=== PATIENT | female | born 1960 | race Caucasian/White ===

== ENCOUNTER 2024-04-27 09:34 | Outpatient (AMB) | payer OTHER, MEDICARE, SELFPAY ==
--- NOTE | 2024-04-27 09:35 | A.OFFVIS_ITS ---
Vital Signs 04/27/24 09:46 Height 5 ft Weight 178 lb 8 oz BMI 34.9 BP 148/72 H Blood Pressure Location Lt brachial Position Sitting Respiration 16 Pulse 74 Pulse Source Pulse Oximeter Pulse Oximetry (%) 93 Oxygen Delivery Method Room Air Intake Visit Reasons: RUQ pain/LBP Intake Note: Patient comes in for initial visit was referred by [facility]. She was accompanied by spouse Enrike. 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 Patient is followed by [facility] for liver cirrhosis due to GARCIA and chronic hepatitis C. She also reports history of following GI provider at [facility]. Reports chronic constipation, bloating, and right upper quadrant pains. Patient also has history of kidney stones with intermittent sharp pain in her left back and recurrent UTI. Back pain is axial, non-radiating but also increases with bending forward due to RUQ pain. Reports h/o back injections with partial pain relief. Denies previous spine surgery. Patient reports anxiety, depression and PTSD has been stable on current treatment and has regular follow up with Dr. Scott. She takes clonazepam 1 mg TID, clonidine, Aripiprazole, Lamotrigine, sertraline. No seizure activity in a long time, stable on. Patient is accompanied by her who is her primary it project lead. Patient is disability due to PTSD, back pain, and liver cirrhosis. She lives with her and 2 children. Denies alcohol consumption or smoking. Reports use of marijuana edibles for pain. Oswestry Low Back Disability Score=32 (severe disability) Location: RUQ pain due to Hep C and GARCIA, chronic low back pain Duration: Chronic pain since 2013, worsening for past 2 years Characteristics of symptom or complaint: Throbbing, shooting, stabbing, sharp, crushing, aching, tiring, spreading Aggravating or associated factors: Movements, constant pains unrelated to PO intake or fasting Relieving factors: Marijuana edibles, dicyclomine, Naprosyn Treatment: [facility], h/o following GI provider at [facility] Medical History (Updated 04/29/24 @ 13:50 by YESSI Simmons) Chronic RUQ pain Kidney stones Generalized anxiety disorder AC on CPAP Constipation Hepatitis C Chronic back pain Bipolar disorder Bilateral knee pain Seizures HTN (hypertension) GERD (gastroesophageal reflux disease) PTSD (post-traumatic stress disorder) Liver cirrhosis secondary to GARCIA COPD (chronic obstructive pulmonary disease) Surgical History Hx of cholecystectomy H/O parathyroidectomy History of pancreatectomy S/P partial hysterectomy H/O hernia repair Hx of appendectomy Family History Sister Ovarian cancer Mother Skin cancer Review of Systems Const All systems reviewed & are unremarkable except as noted in HPI and below Physical Exam Vital Signs: Last Vital Signs Pulse 74 04/27/24 09:46 Resp 16 04/27/24 09:46 BP 148/72 H 04/27/24 09:46 Pulse Ox 93 04/27/24 09:46 Oxygen Delivery Method Room Air 04/27/24 09:46 BMI result Body Mass Index 34.9 General: Appears afebrile. Alert and oriented. Mood and affect appropriate. Follows and participates in conversation appropriately. Respiratory effort is unlabored. No cough. Able to transition from sit to stand unassisted. Ambulates with bilaterally normal heel strike and toe off. Eyes General: appearance normal, both eyes and all related structures Conjunctivae: conjunctivae normal Sclerae: sclerae normal Corneas: corneas normal Pupils: Equal, round and reactive pupils present EOM: EOMs intact bilaterally Direct Ophthalmoscopy: normal light reflex GI Inspection: Yes normal to inspection, No abdominal wall ecchymosis, Yes distended, Yes obesity and No scar Palpation (GI): Soft to palpation (and semi-firm right side), Tenderness to palpation present (GI) in the LUQ, in the RUQ and periumbilically; with no rebound tenderness, Guarding due to palpation present (GI) in the RUQ, not rigid, no hepatomegaly and No Carnett's sign positive Percussion: No Fluid wave present and No bilateral flank dullness Auscultation: normal bowel sounds General: Yes no CVA tenderness Back/Spine/Pelvis Back: no CVA tenderness Cervical Spine: loss of normal cervical lordosis, cervical muscular tenderness and No Cervical spine tenderness Thoracic/Lumbar Spine: thoracic and lumbar spine normal to inspection, No Thoracic/lumbar spine scar(s), Lasegue's sign negative, straight leg raise negative bilaterally, pain with thoraco-lumbar ROM, thoraco-lumbar ROM limited, No thoracic spinal tenderness and lumbar spinal tenderness (L3-S1) Pelvis: no buttock tenderness Neuro Cranial nerves: Yes Equal, round and reactive pupils present Results Reviewed Results Reviewed: No imaging results are available for review. Assessment & Plan Assessment & Plan (1) Chronic back pain: Code(s): M54.9 - Dorsalgia, unspecified; G89.29 - Other chronic pain Category: Medical (2) Lumbosacral spondylosis: Code(s): M47.817 - Spondylosis without myelopathy or radiculopathy, lumbosacral region Category: Medical (3) Chronic RUQ pain: Code(s): R10.11 - Right upper quadrant pain; G89.29 - Other chronic pain Category: Medical (4) Liver cirrhosis secondary to GARCIA: Code(s): K75.81 - Nonalcoholic steatohepatitis (GARCIA); K74.60 - Unspecified cirrhosis of liver Category: Medical Plan Obtain full pertinent medical records from PCP and GI offices for abd/pelvis and spine CT scans, US, xrays and MRIs. Discussed interventional treatments for axial low back pain and chronic RUQ pain. I would like to review most recent GI evaluation and imaging/reports prior to offering patient diagnostic or therapeutic injections and potential longer term pain relief treatments such as neuromodulation or RFA procedures. All questions and concerns have been answered and patient agreed with the treatment plan. Follow-up for old records review and sooner as needed. Coding Level of Care Code New Pt Level 4 (67969) Complex EM visit Add On G2211 Diagnoses Chronic back pain M54.9; G89.29 Lumbosacral spondylosis M47.817 Chronic RUQ pain R10.11; G89.29 Liver cirrhosis secondary to GARCIA K75.81; K74.60
[2024-04-27 09:46] VITALS: BP 148/72; PULSE 74; RESP 16; O2SAT 93; BMI 34.9
== END 2024-04-27 10:11 | disposition home or self-care (01) ==
LOC: HO.PMC 09:35
PROVIDERS: PCP Internal Medicine; Visit Provider Nurse Practitioner Family
DX: M54.9 Dorsalgia, unspecified (principal); G89.29 Other chronic pain; M47.817 Spondylosis without myelopathy or radiculopathy, lumbosacral region; R10.11 Right upper quadrant pain; K75.81 Nonalcoholic steatohepatitis (NASH); K74.60 Unspecified cirrhosis of liver
CPT/HCPCS: 99204

== ENCOUNTER → 2024-04-27 09:34 | Outpatient (BNVA) | payer OTHER, MEDICARE, SELFPAY | PROVIDERS: PCP Internal Medicine; Visit Provider Nurse Practitioner Family ==

== ENCOUNTER 2024-06-06 11:12 | Outpatient (AMB) | payer OTHER, MEDICARE, SELFPAY ==
--- NOTE | 2024-06-06 11:32 | A.OFFVIS_ITS ---
Intake Visit Reasons: recurrent UTI Intake Note: New Patient presents for initial visit for recurrent uti Urology Medications: none Blood Thinner: none PVR: 0ml's Supervisor Parachute Manufacturing Required: No Accompanied by: Self / Same As Patient Allergies Penicillins Allergy (Verified 06/06/24 12:30) Hives latex Adverse Reaction (Verified 06/06/24 12:30) Unknown seroquil Allergy (Uncoded 06/06/24 12:30) Seizure Medication List - Last Reconciled 06/06/24 by YESSI Fleming- albuterol sulfate mg inhalation albuterol sulfate 90 mcg/actuation inhalation amlodipine 10 mg PO DAILY aripiprazole 10 mg PO DAILY atenolol 50 mg PO DAILY clonazepam 1 mg PO TID PRN clonidine HCl 0.1 mg PO TID dicyclomine 10 mg PO Q6H PRN estradiol 0.01%(0.1mg/gram) 1 g vaginal 3XW 90 days famotidine 40 mg PO BID hbkojrcvyia-usybaazru-gcrzbnkh 200-62.5-25 mcg (Trelegy Ellipta) 1 ea inhalation DAILY lamotrigine 200 mg PO DAILY losartan 100 mg PO DAILY mirtazapine 15 mg PO BEDTIME omeprazole 40 mg PO DAILY sertraline 100 mg PO BID HPI Comments Details: Latricia is a very pleasant 64-year-old female patient of Dr. Cole who was accompanied by her at today's office visit. 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 She presents to the office today as a new patient for recurrent urinary tract infections. In discussion with the patient today she reports having followed up with her PCP for ongoing urinary tract infections at which time a urology referral was made for further assessment evaluation. She discusses noting over the last year she has had a urinary tract infection almost every month. She currently denies any UTI like symptoms however reports her last urinary tract infection was on 05/04. When asked she does report a history of constipation. She also had a partial hysterectomy in 2000. She reports typically her UTI like symptoms are foul- smelling urine and cloudy urine. She otherwise denies urinary urgency, urinary frequency, incontinence, nocturia, hematuria, dysuria, changes to urinary stream, flank pain, fever, and or chills. We discussed at length potential causes of recurrent urinary tract infections. We discussed obtaining retroperitoneal ultrasound for further assessment evaluation. We also discussed possible near future in office cystoscopy for further assessment evaluation. In office urinalysis results reviewed with the patient today. PVR 0 mL. She otherwise offers no other issues or concerns at this time. Patient brings with her previous urine culture results 03/20 E coli. [facility] Medical History Chronic RUQ pain Kidney stones Generalized anxiety disorder AC on CPAP Constipation Hepatitis C Chronic back pain Bipolar disorder Bilateral knee pain Seizures HTN (hypertension) GERD (gastroesophageal reflux disease) PTSD (post-traumatic stress disorder) Liver cirrhosis secondary to GARCIA COPD (chronic obstructive pulmonary disease) Surgical History Hx of cholecystectomy H/O parathyroidectomy History of pancreatectomy S/P partial hysterectomy H/O hernia repair Hx of appendectomy Family History Sister Ovarian cancer Mother Skin cancer Review of Systems Const All systems reviewed & are unremarkable except as noted in HPI and below Physical Exam Const General: cooperative, healthy appearing, comfortable, no acute distress, well developed, alert and awake Nutritional Appearance: overweight Orientation/consciousness: patient oriented x3 Limitations: no limitations HEENT Head: Yes normal to inspection, Yes normocephalic and Yes atraumatic Ears: hearing grossly normal bilaterally Eyes General: appearance normal, both eyes and all related structures Neck Neck: Yes normal visual inspection and Yes trachea midline Chest Chest palpation & inspection: normal inspection of the chest Resp Effort & Inspection: normal respiratory effort and able to speak in complete sentences Cardio Rate: regular rate GI Inspection: Yes normal to inspection General: Yes no CVA tenderness Back/Spine/Pelvis Back: no CVA tenderness Skin General skin exam: no rashes or lesions noted Neuro General: patient oriented x3 Extrem General: Yes normal to inspection Psych Appearance: grossly normal and well kempt Mental Status: mental status grossly normal Speech and movement: Normal speech and movement present and Clear speech present Affect: normal affect Attitude: cooperative Thought process: Normal thought process present Thought content: Normal thought content present Insight: Fair insight present (Psych) Judgement: Fair judgement present (Psych) Office Procedures Post Void Residual Post Residual Void Post Void Residual (PVR): 0 47585-Pumb Void Residual by ultrasound Results AMB Urinalysis, Automated UA Leukoctes 0 Aniya/uL Last Edit by Second Decimal on 06/06/24 12:01 UA Nitrite Last Edit by Second Decimal on 06/06/24 12:01 UA Urobilinogen 0.2 mg/dL Last Edit by Second Decimal on 06/06/24 12:01 UA Protein 100 mg/dL Last Edit by Second Decimal on 06/06/24 12:01 UA pH 6.0 Last Edit by Second Decimal on 06/06/24 12:01 UA Blood 0 Chong/uL Last Edit by Second Decimal on 06/06/24 12:01 UA Specific Roscoe 1.015 Last Edit by Second Decimal on 06/06/24 12:01 UA Ketone Last Edit by Second Decimal on 06/06/24 12:01 UA Bilirubin 0 mg/dL Last Edit by Second Decimal on 06/06/24 12:01 UA Glucose 0 mg/dL Last Edit by Second Decimal on 06/06/24 12:01 Results Reviewed Results Reviewed: Laboratory Last Values Urine pH (Auto) 6.0 06/06/24 11:36 Specific Roscoe (Auto) 1.015 06/06/24 11:36 Urine Protein (Auto) 100 mg/dL 06/06/24 11:36 Glucose (UA)(Auto) 0 mg/dL 06/06/24 11:36 Urine Blood (Auto) 0 Chong/uL 06/06/24 11:36 Urine Bilirubin (Auto) 0 mg/dL 06/06/24 11:36 Urine Urobilinogen (Auto) 0.2 mg/dL 06/06/24 11:36 Leukocyte Esterase (Auto) 0 Aniya/uL 06/06/24 11:36 Assessment & Plan Assessment & Plan (1) Recurrent urinary tract infection: Code(s): N39.0 - Urinary tract infection, site not specified Category: Medical Plan In office urinalysis results reviewed the patient today; as noted above. PVR 0 mL Patient currently denies any UTI like symptoms. We discussed at length potential causes of recurrent urinary tract infections. Start Estrace cream as discussed and prescribed. Will obtain retroperitoneal ultrasound for further assessment evaluation. We discussed potential near future in office cystoscopy for further assessment evaluation. Discussed UTI prevention with D mannose supplement, vitamin-C, increasing fluid intake, behavioral therapy with timed voiding, perineal hygiene and postcoital voiding, and management of constipation with stool softeners and increased fiber intake. Discussed possible near future microgen Follow-up in 1-3 months with imaging to be completed prior; or sooner with any issues, concerns, and or questions. Orders: Orders AMB Urinalysis Automated Today Z13.9 - Encounter for screening, unspecified US retroperitoneal comp Today N39.0 - Urinary tract infection, site not specified AMB Post Void Residual by ultrasound Today Z13.9 - Encounter for screening, unspecified Medications: New estradiol 0.01%(0.1mg/gram) Pea-sized amount to urethra daily x1 month and then 3 times per week thereafter 1 g vaginal 3XW 42.5 grams 2RF 90 days N36.2 - Urethral caruncle, N39.0 - Urinary tract infection, site not specified, N95.2 - Postmenopausal atrophic vaginitis Patient Instructions: The patient had an opportunity to ask questions regarding the treatment plan. All questions were answered. Physical exam, labs, and imaging were discussed and reviewed in detail. As well as risks, benefits, and discussion of treatment choices. No major barriers to understanding were identified. The patient expressed understanding and agreement with the above treatment plan. The patient was made aware they should contact our office by phone for worsening of their current condition, the appearance of new symptoms, or with any questions or concerns. Compliance is encouraged with any medications and follow up testing that is ordered. It is a privilege to be allowed the opportunity to participate in? your urological care.? Again, if you have any questions or concerns If you have any questions or concerns please do not hesitate to contact me. The office is [phone]. This note is constructed using voice recognition software. While every effort has been made to ensure accuracy punchboard filling machine operator errors may have been included. Yours sincerely, YESSI Fleming- Coding Level of Care Code New Pt Level 4 (75467) Diagnoses Recurrent urinary tract infection N39.0 CPT Codes Post Residual Void - PVR CPT Code: 29273-Jmzj Void Residual by ultrasound ([id number])
== END 2024-06-06 12:30 | disposition home or self-care (01) ==
PROVIDERS: PCP Internal Medicine; Visit Provider Nurse Practitioner Family
DX: Z13.9 Encounter for screening, unspecified (principal); N39.0 Urinary tract infection, site not specified
CPT/HCPCS: 99204

== ENCOUNTER → 2024-06-06 11:12 | Outpatient (BNVA) | payer OTHER, MEDICARE, SELFPAY | PROVIDERS: PCP Internal Medicine; Visit Provider Nurse Practitioner Family | DX: N39.0 Urinary tract infection, site not specified (principal) | CPT/HCPCS: 51798; 81003 ==

== ENCOUNTER 2024-06-14 14:56 | Outpatient (AMB) | payer OTHER, MEDICARE, SELFPAY ==
--- NOTE | 2024-06-14 14:58 | A.OFFVIS_ITS ---
Vital Signs 06/14/24 15:03 Height 5 ft Weight 179 lb BMI 35.0 BP 151/78 H Blood Pressure Location Lt brachial Position Sitting Pulse 77 Pulse Source Pulse Oximeter Pulse Oximetry (%) 94 Oxygen Delivery Method Nasal Cannula Oxygen Flow Rate 3 Intake Visit Reasons: FU increasing pain Intake Note: Pain today 04/05 Stem Threshing Machine Operator Required: No Accompanied by: Family/Other Allergies Penicillins Allergy (Verified 06/14/24 15:02) Hives latex Adverse Reaction (Verified 06/14/24 15:02) Unknown seroquil Allergy (Uncoded 06/06/24 12:30) Seizure HPI Comments Details: Patient presents today for follow up for persistent right upper quadrant pain and low back pain. Unfortunately, we were unable to receive her medical records from her GI provider with most recent imaging studies and GI evaluation to pr oceed with interventional treatments after multiple attempts. Patient and family reports to send medical records release to [facility] and [facility]. Patient also reports bilateral knee pain, left is worse than right. Denies any recent cough, cold, infection, fever or other significant changes in medical history since last office visit. Denies any changes to medications, medical history or recent hospitalizations. 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 Patient is followed by [facility] for liver cirrhosis due to GARCIA and chronic hepatitis C. She also reports history of following GI provider at [facility]. Reports chronic constipation, bloating, and right upper quadrant pains. Patient also has history of kidney stones with intermittent sharp pain in her left back and recurrent UTI. Back pain is axial, non-radiating but also increases with bending forward due to RUQ pain. Reports h/o back injections with partial pain relief. Denies previous spine surgery. Patient reports anxiety, depression and PTSD has been stable on current treatment and has regular follow up with Dr. Scott. She takes clonazepam 1 mg TID, clonidine, Aripiprazole, Lamotrigine, sertraline. No seizure activity in a long time, stable on. Patient is accompanied by her who is her primary tank house operator helper. Patient is disability due to PTSD, back pain, and liver cirrhosis. She lives with her and 2 children. Denies alcohol consumption or smoking. Reports use of marijuana edibles for pain. Oswestry Low Back Disability Score=32 (severe disability) Location: RUQ pain due to Hep C and GARCIA, chronic low back pain Duration: Chronic pain since 2013, worsening for past 2 years Characteristics of symptom or complaint: Throbbing, shooting, stabbing, sharp, crushing, aching, tiring, spreading Aggravating or associated factors: Movements, constant pains unrelated to PO intake or fasting Relieving factors: Marijuana edibles, dicyclomine, Naprosyn Treatment: [facility], h/o following GI provider at [facility] Medical History (Updated 06/14/24 @ 15:08 by YESSI Simmons) Chronic RUQ pain Kidney stones Generalized anxiety disorder AC on CPAP Constipation Hepatitis C Chronic back pain Bipolar disorder Bilateral knee pain Seizures HTN (hypertension) GERD (gastroesophageal reflux disease) PTSD (post-traumatic stress disorder) Liver cirrhosis secondary to GARCIA COPD (chronic obstructive pulmonary disease) Surgical History Hx of cholecystectomy H/O parathyroidectomy History of pancreatectomy S/P partial hysterectomy H/O hernia repair Hx of appendectomy Family History Sister Ovarian cancer Mother Skin cancer Review of Systems Const All systems reviewed & are unremarkable except as noted in HPI and below Physical Exam General: Appears afebrile. No acute distress. Alert and oriented. Mood and affect appropriate. Follows and participates in conversation appropriately. Respiratory effort is unlabored. No cough. Able to transition from sit to stand unassisted. O2 dependant. Ambulates with bilaterally normal heel strike and toe off. GI Inspection: Yes normal to inspection, No abdominal wall ecchymosis, Yes distended, Yes obesity and No scar Palpation (GI): Soft to palpation (and semi-firm right side), Tenderness to palpation present (GI) in the LUQ, in the RUQ and periumbilically; with no rebound tenderness, Guarding due to palpation present (GI) in the RUQ, not rigid, no hepatomegaly and No Carnett's sign positive Back/Spine/Pelvis Cervical Spine: loss of normal cervical lordosis, cervical muscular tenderness and No Cervical spine tenderness Thoracic/Lumbar Spine: thoracic and lumbar spine normal to inspection, No Thoracic/lumbar spine scar(s), Lasegue's sign negative, straight leg raise negative bilaterally, pain with thoraco-lumbar ROM, thoraco-lumbar ROM limited, No thoracic spinal tenderness and lumbar spinal tenderness (L3-S1) Pelvis: no buttock tenderness Extrem Right lower extremity: knee Details: normal to inspection, tenderness Location: of the patella and of the lateral joint line, normal ROM and crepitus; no swelling, no ecchymosis, no deformity and no unusual warmth Left lower extremity: knee (limited ROM due to pain) Details: normal to inspection, tenderness Location: of the patella, of the medial joint line and of the lateral joint line and crepitus; no swelling, no ecchymosis, no deformity and no unusual warmth Results Reviewed Results Reviewed: No imaging results are available for review. Assessment & Plan Assessment & Plan (1) Chronic back pain: Code(s): M54.9 - Dorsalgia, unspecified; G89.29 - Other chronic pain Category: Medical (2) Lumbosacral spondylosis: Code(s): M47.817 - Spondylosis without myelopathy or radiculopathy, lumbosacral region Category: Medical (3) Chronic RUQ pain: Code(s): R10.11 - Right upper quadrant pain; G89.29 - Other chronic pain Category: Medical (4) Liver cirrhosis secondary to GARCIA: Code(s): K75.81 - Nonalcoholic steatohepatitis (GARCIA); K74.60 - Unspecified cirrhosis of liver Category: Medical (5) Bilateral knee pain: Code(s): M25.561 - Pain in right knee; M25.562 - Pain in left knee Category: Medical Plan Obtain full pertinent medical records from PCP and GI offices for abd/pelvis and spine CT scans, US, xrays and MRIs. Will resubmit to [facility] and now to [facility] and [facility] per patient. Lumbar spine and bilateral knee imaging to assess degree of degenerative changes, any subluxation, listhesis, compression fractures or pars defects. Reviewed interventional treatments for axial low back and bilateral knee pain and chronic RUQ pain. Tentatively schedule Bilateral Diagnostic L3-L4-L5 MBB with local and fluoroscopy for potential Sprint PNS, RFA or therapeutic injections. Expectations, risks and benefits were reviewed. All questions and concerns have been answered and patient agreed with the treatment plan. Follow-up for old records/xray review and sooner as needed. Orders: Orders XR knee LT 3V Today M25.561 - Pain in right knee, M25.562 - Pain in left knee XR lumbar spine 6V w bending Today G89.29 - Other chronic pain, M47.817 - Sp ondylosis without myelopathy or radiculopathy, lumbosacral region, M54.9 - Dorsalgia, unspecified XR knee RT 3V Today M25.561 - Pain in right knee, M25.562 - Pain in left knee Coding Level of Care Code Est Pt Level 4 (66048) Complex EM visit Add On G2211 Diagnoses Chronic back pain M54.9; G89.29 Lumbosacral spondylosis M47.817 Chronic RUQ pain R10.11; G89.29 Liver cirrhosis secondary to GARCIA K75.81; K74.60 Bilateral knee pain M25.561; M25.562
[2024-06-14 15:03] VITALS: BP 151/78; PULSE 77; O2SAT 94; BMI 35.0
== END 2024-06-14 15:24 | disposition home or self-care (01) ==
PROVIDERS: PCP Internal Medicine; Visit Provider Nurse Practitioner Family
DX: M54.9 Dorsalgia, unspecified (principal); G89.29 Other chronic pain; M47.817 Spondylosis without myelopathy or radiculopathy, lumbosacral region; R10.11 Right upper quadrant pain; K75.81 Nonalcoholic steatohepatitis (NASH); K74.60 Unspecified cirrhosis of liver; M25.561 Pain in right knee; M25.562 Pain in left knee
CPT/HCPCS: 99214

== ENCOUNTER 2024-06-14 14:56 | Outpatient (REF) | payer OTHER, MEDICARE, SELFPAY ==
--- NOTE | ~2024-06-14 | XR_ITS ---
EXAMINATION: XR LUMBAR SPINE CLINICAL INFORMATION: Dorsalgia, unspecified M54.9. COMPARISON: None available. TECHNIQUE: 7 views of the lumbar spine, inclusive of flexion and extension views, were obtained. FINDINGS: Levoscoliosis of the thoracolumbar spine. Surgical clips in the right upper quadrant. Diffuse demineralization. Degenerative changes in the bilateral sacroiliac joints. Facet arthritis in the lower lumbar spine. Multilevel lumbar spondylosis. Hjbgorov-ml-igytoc loss of disc space height at L2-L3. Marked loss of disc space height at L3-L4. Moderate loss of disc space height at L4-L5. Moderate loss of disc space height at L5-S1. Alignment preserved on flexion and extension views. XR/XR lumbar spine 6V w bending IMPRESSION: Multilevel degenerative disc disease most notable at L3-L4. Electronically signed by: Ekaterina Brennan MD 07/14/2024 02:11 PM DONAVAN
--- NOTE | ~2024-06-14 | XR_ITS ---
EXAMINATION: XR KNEE LEFT; XR KNEE RIGHT CLINICAL INFORMATION: Pain in right knee M25.561. COMPARISON: None TECHNIQUE: Three images of left knee and three images of right knee. FINDINGS: LEFT knee: Diffuse demineralization. Trace joint effusion. Vvfqdzzq-dv-myevfh narrowing of the medial compartment with medial marginal osteophytes. Mild degenerative changes in the lateral and patellofemoral compartments. RIGHT knee: Diffuse demineralization. Trace joint effusion. Mild degenerative changes in the lateral and patellofemoral compartments. XR/XR knee RT 3V IMPRESSION: Moderate to marked degenerative changes in the bilateral medial compartments. Electronically signed by: Ekaterina Brennan MD 07/14/2024 05:28 AM EST
--- NOTE | ~2024-06-14 | XR_ITS ---
EXAMINATION: XR KNEE LEFT; XR KNEE RIGHT CLINICAL INFORMATION: Pain in right knee M25.561. COMPARISON: None TECHNIQUE: Three images of left knee and three images of right knee. FINDINGS: LEFT knee: Diffuse demineralization. Trace joint effusion. Nwyqvyzz-df-gnffsi narrowing of the medial compartment with medial marginal osteophytes. Mild degenerative changes in the lateral and patellofemoral compartments. RIGHT knee: Diffuse demineralization. Trace joint effusion. Mild degenerative changes in the lateral and patellofemoral compartments. XR/XR knee LT 3V IMPRESSION: Moderate to marked degenerative changes in the bilateral medial compartments. Electronically signed by: Ekaterina Brennan MD 07/14/2024 05:28 AM EST
== END 2024-06-14 14:57 | disposition home or self-care (01) ==
LOC: HO.XRAY 14:56
PROVIDERS: PCP Nurse Practitioner Family; Visit Provider Nurse Practitioner Family
DX: M25.561 Pain in right knee (principal); M25.562 Pain in left knee; M54.9 Dorsalgia, unspecified; G89.29 Other chronic pain; M47.817 Spondylosis without myelopathy or radiculopathy, lumbosacral region
CPT/HCPCS: 72114; 73562

== ENCOUNTER 2024-07-19 10:43 | Outpatient (AMB) | payer OTHER, MEDICARE, SELFPAY ==
[2024-07-19 10:43] VITALS: BMI 34.8
--- NOTE | 2024-07-19 10:43 | MHC.OFFVIS ---
Vital Signs 07/19/24 10:43 Height 5 ft Weight 178 lb BMI 34.8 Intake Visit Reasons: xray results Accompanied by: Family/Other Allergies Penicillins Allergy (Verified 07/19/24 10:44) Hives latex Adverse Reaction (Verified 07/19/24 10:44) Unknown seroquil Allergy (Uncoded 06/06/24 12:30) Seizure HPI Comments Details: Patient presents today via telehealth encounter to review recent spine and knee xrays. She continues to endorse axial low back pain with activities and at rest and bilateral knee pain with walking or climbing stairs. Patient also reports increased yellowing of her skin and eyes with persistent right upper quadrant pain. We received her recent liver US and old records from previous GI providers, which were reviewed and scanned into patient's chart. Patient reports she would like to transfer her GI care to [facility] and requests referral to our GI group. Denies any recent cough, cold, infection, fever or other significant changes in medical history since last office visit. Denies any changes to medications, medical history or recent hospitalizations. 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 Patient is followed by [facility] for liver cirrhosis due to GARCIA and chronic hepatitis C. She also reports history of following GI provider at [facility]. Reports chronic constipation, bloating, and right upper quadrant pains. Patient also has history of kidney stones with intermittent sharp pain in her left back and recurrent UTI. Back pain is axial, non-radiating but also increases with bending forward due to RUQ pain. Reports h/o back injections with partial pain relief. Denies previous spine surgery. Patient reports anxiety, depression and PTSD has been stable on current treatment and has regular follow up with Dr. Scott. She takes clonazepam 1 mg TID, clonidine, Aripiprazole, Lamotrigine, sertraline. No seizure activity in a long time, stable on. Patient is accompanied by her who is her primary vegetable grader. Patient is disability due to PTSD, back pain, and liver cirrhosis. She lives with her and 2 children. Denies alcohol consumption or smoking. Reports use of marijuana edibles for pain. Oswestry Low Back Disability Score=32 (severe disability) Location: RUQ pain due to Hep C and GARCIA, chronic low back pain Duration: Chronic pain since 2013, worsening for past 2 years Characteristics of symptom or complaint: Throbbing, shooting, stabbing, sharp, crushing, aching, tiring, spreading Aggravating or associated factors: Movements, constant pains unrelated to PO intake or fasting Relieving factors: Marijuana edibles, dicyclomine, Naprosyn Treatment: [facility], h/o following GI provider at [facility] Medical History Chronic RUQ pain Kidney stones Generalized anxiety disorder AC on CPAP Constipation Hepatitis C Chronic back pain Bipolar disorder Bilateral knee pain Seizures HTN (hypertension) GERD (gastroesophageal reflux disease) PTSD (post-traumatic stress disorder) Liver cirrhosis secondary to GARCIA COPD (chronic obstructive pulmonary disease) Surgical History Hx of cholecystectomy H/O parathyroidectomy History of pancreatectomy S/P partial hysterectomy H/O hernia repair Hx of appendectomy Family History Sister Ovarian cancer Mother Skin cancer Review of Systems Const All systems reviewed & are unremarkable except as noted in HPI and below Reports as per HPI, Denies chills, Reports difficulty sleeping, Reports fatigue, Denies fever(s), Reports malaise and Denies night sweats ENT Reports Normal hearing present GI Reports abdominal pain, Denies melena, Denies fecal incontinence, Denies nausea and Denies vomiting Musc Reports as per HPI, Reports back pain, Reports arthralgias, Denies joint swelling, Reports limited range of motion, Denies numbness, Denies radiating pain into limb, Reports stiffness and Denies tingling Skin/Breast Denies rash and Reports jaundice Neuro Reports Normal hearing present, Denies confusion, Denies numbness and Denies tingling Psych Denies confusion Endo Reports fatigue Physical Exam Vital Signs: BMI result Body Mass Index 34.8 Const General: cooperative, alert and awake; No confusion Orientation/consciousness: patient oriented x3 and No confusion Resp Effort & Inspection: able to speak in complete sentences, no audible wheezes and no cough Neuro General: patient oriented x3 and No confusion Cranial nerves: Yes Normal hearing present Cognition (Neuro): normal cognition Psych Mental Status: mental status grossly normal Speech and movement: Clear speech present Affect: normal affect Attitude: cooperative Thought process: Normal thought process present Thought content: Normal thought content present and No Depressive thoughts present Insight: Good insight present (Psych) Judgement: Good judgement present (Psych) Telehealth Telehealth Telehealth Platform: Telephone Location of provider rendering services: practice address Location of patient: address on file Patient Identification confirmed using: Name, : Yes Telehealth method: voice only Patient verbally consented to treatment: Yes Patient verbally consented to billing insurance company: Yes Patient informed of any privacy concerns related to visit: Yes Minutes spent on Phone/Video with Pt.: 18 Results Reviewed Results Reviewed: XR KNEE LEFT; XR KNEE RIGHT 06/14/24 CLINICAL INFORMATION: Pain in right knee M25.561. COMPARISON: None TECHNIQUE: Three images of left knee and three images of right knee. FINDINGS: LEFT knee: Diffuse demineralization. Trace joint effusion. Moghrgvu-rw-mctaos narrowing of the medial compartment with medial marginal osteophytes. Mild degenerative changes in the lateral and patellofemoral compartments. RIGHT knee: Diffuse demineralization. Trace joint effusion. Mild degenerative changes in the lateral and patellofemoral compartments. IMPRESSION: Moderate to marked degenerative changes in the bilateral medial compartments. XR LUMBAR SPINE 06/14/24 CLINICAL INFORMATION: Dorsalgia, unspecified M54.9. COMPARISON: None available. TECHNIQUE: 7 views of the lumbar spine, inclusive of flexion and extension views, were obtained. FINDINGS: Levoscoliosis of the thoracolumbar spine. Surgical clips in the right upper quadrant. Diffuse demineralization. Degenerative changes in the bilateral sacroiliac joints. Facet arthritis in the lower lumbar spine. Multilevel lumbar spondylosis. Yazcyoto-mg-zjlkkm loss of disc space height at L2-L3. Marked loss of disc space height at L3-L4. Moderate loss of disc space height at L4-L5. Moderate loss of disc space height at L5-S1. Alignment preserved on flexion and extension views. IMPRESSION: Multilevel degenerative disc disease most notable at L3-L4. Assessment & Plan Assessment & Plan (1) Liver cirrhosis secondary to GARCIA: Code(s): K75.81 - Nonalcoholic steatohepatitis (GARCIA); K74.60 - Unspecified cirrhosis of liver Category: Medical (2) Chronic liver disease: Code(s): K76.9 - Liver disease, unspecified Category: Medical (3) Jaundice: Code(s): R17 - Unspecified jaundice Category: Medical (4) Bilateral knee pain: Code(s): M25.561 - Pain in right knee; M25.562 - Pain in left knee Category: Medical (5) Lumbosacral spondylosis: Code(s): M47.817 - Spondylosis without myelopathy or radiculopathy, lumbosacral region Category: Medical (6) Chronic back pain: Code(s): M54.9 - Dorsalgia, unspecified; G89.29 - Other chronic pain Category: Medical (7) Chronic RUQ pain: Code(s): R10.11 - Right upper quadrant pain; G89.29 - Other chronic pain Category: Medical Plan Old records from [facility] providers at [facility] and [facility] were reviewed and scanned into patient's chart. She reports jaundice of her skin and eyes and this is confirmed by her and son who were presents during today's encounter. Patient was advised to seek medical evaluation at ER or call 911 with worsening of jaundice and RUQ pain. She requests referral to our [facility] group. Lumbar spine and bilateral knee xrays results were reviewed with patient today. We reviewed interventional treatments for axial low back and bilateral knee pain due to arthritis and degenerative changes. Patient reports back pain is worse than knee pain. Schedule Bilateral Diagnostic L3-L4-DR L5 MBB with local and fluoroscopy for potential Sprint PNS trial, RFA or therapeutic injections. Expectations, risks and benefits were reviewed. Patient is aware she will be contacted to schedule this procedure. All questions were answered and the patient is in agreement of plan. Follow-up after injections and sooner as needed. I hereby testify that I spent 18 minutes in conversation with this patient as well as with planning and coordinating care for this patient and organizing this note. Orders: Referrals Gastroenterology Referral K74.60 - Unspecified cirrhosis of liver, K75.81 - Nonalcoholic steatohepatitis (GARCIA), K76.9 - Liver disease, unspecified, R17 - Unspecified jaundice Coding Level of Care Code Tele Est Pt Level 4 (64788) Complex EM visit Add On G2211 Diagnoses Liver cirrhosis secondary to GARCIA K75.81; K74.60 Chronic liver disease K76.9 Jaundice R17 Bilateral knee pain M25.561; M25.562 Lumbosacral spondylosis M47.817 Chronic back pain M54.9; G89.29 Chronic RUQ pain R10.11; G89.29
== END 2024-07-19 11:07 | disposition home or self-care (01) ==
LOC: HO.PMC 10:43
PROVIDERS: PCP Nurse Practitioner Family; Visit Provider Nurse Practitioner Family
DX: K74.60 Unspecified cirrhosis of liver (principal); M25.561 Pain in right knee; M25.562 Pain in left knee; M47.817 Spondylosis without myelopathy or radiculopathy, lumbosacral region; M54.9 Dorsalgia, unspecified; G89.29 Other chronic pain; R10.11 Right upper quadrant pain
CPT/HCPCS: 98014

== ENCOUNTER 2024-07-27 09:53 | Outpatient (REF) | payer OTHER, MEDICARE, SELFPAY ==
--- OUTSIDE RECORDS SUMMARY | 2024-07-27 10:32 | XMS_ITS | Encounter Summary ---
Author Organization [facility] Address [address] [place] [address] Phone Care Team Providers Care Dinner Cook Name Role Phone Katarina Nails YESSI Primary Care Provider [phone] Encounter Details Date Type Department Care Team (Late st Contact Info) Description 02/29/2024 Documentation Only [facility] [address] [place] [address] Gilma Jones [address] [place] [phone] Social History Tobacco Use Types Packs/Day Years Used Date Smoking Tobacco: Never Alcohol Use Standard Drinks/Week Comments Not Currently 1 (1 standard drink = 0.6 oz pur e alcohol) No Longer drink Comments Unknown Sex and Gender Information Value Date Recorded Sex Assigned at Not on file Legal Sex Female 3:13 PM EDT Gender Identity Not on file Sexual Orientation Not on file documented as of this encounter Plan of Treatment Upcoming Encounters Date Type Department Care Team (Late st Contact Info) Description 11/21/2024 2:45 PM EDT Office Visit [facility] [address] [place] [phone] Gnosalo Antony MD [address] [place] [phone] documented as of this encounter Visit Diagnoses Not on filedocumented in this encounter Care Teams Dinner Cook Relationship Specialty Start Date End Date Katarina Nails FNP [address], [address] [place] [address] PCP - General 05/07/24 documented as of this encounter
--- OUTSIDE RECORDS SUMMARY | 2024-07-27 10:32 | XMS_ITS | Encounter Summary ---
Author Organization [facility] Address [address] [place] [address] Phone Care Team Providers Care Mold Puller Name Role Phone Katarina Nails YESSI Primary Care Provider [phone] Encounter Details Date Type Department Care Team (Late st Contact Info) Description 03/03/2022 Documentation Only [facility] [address] [place] [phone] Rubens Palafox PA [address] [phone] Social History Tobacco Use Types Packs/Day Years [...] Visit [facility] [address] [place] [phone] Gonsalo Antony MD [address] [place] [place] [phone] documented as of this encounter Visit Diagnoses Not on filedocumented in this encounter Care Teams Mold Puller Relationship Specialty Start Date End Date Katarina Nails FNP [address], [address] [place] [address] PCP - General 05/07/24 documented as of this encounter
--- OUTSIDE RECORDS SUMMARY | 2024-07-27 10:32 | XMS_ITS | Encounter Summary ---
Author Organization [facility] [place], Address [address] [place] [address] Phone Care Team Providers Care Surgical Assist Name Role Phone Katarina Nails YESSI Primary Care Provider [phone] Encounter Details Date Type Department Care Team (Late st Contact Info) Description 03/30/2022 Documentation Only [facility], [address] [place] [phone] Rubens Palafox PA [address] [place] [phone] Social History Tobacco Use Types Packs/Day Years Used Date Smoking Tobacco: Never Alcohol Use Standard Drinks/Week Comments Not Currently 1 (1 standard drink = 0.6 oz pur e alcohol) No Longer drink Comments Unknown Sex and Gender Information Value Date Recorded Sex Assigned at Not on file Legal Sex Female 3:13 PM EDT Gender Identity Not on file Sexual Orientation Not on file COVID-19 Exposure Response Date Recorded In the last 10 days, have yo u been in contact with someone who was confirmed or suspected to have Coronavirus/COVID-19? No / Unsure 03/08/2022 9:52 AM EDT documented as of this encounter Plan of Treatment Upcoming Encounters Date Type Department Care Team (Late st Contact Info) Description 11/21/2024 2:45 PM EDT Office Visit [facility], [address] [place] [address] Gonsalo Antony MD [address] [place] [place] [address] documented as of this encounter Visit Diagnoses Not on filedocumented in this encounter Care Teams Surgical Assist Relationship Specialty Start Date End Date Katarina Nails FNP [address] [facility] [address] [place] [address] PCP - General 05/07/24 documented as of this encounter
--- OUTSIDE RECORDS SUMMARY | 2024-07-27 10:32 | XMS_ITS | Encounter Summary ---
Author Organization [facility] Address [address] [place] [address] Phone Care Team Providers Care Cold Type Composing Machine Operator Name Role Phone Katarina Nails YESSI Primary Care Provider [phone] Encounter Details Date Type Department Care Team (Late st Contact Info) Description 06/07/2023 Documentation Only [facility] [address] [place] [phone] Rubens Palafox PA [address] [place] [phone] Social History Tobacco Use Types Packs/Day Years [...] Visit [facility] [address] [place] [phone] Gonsalo Antony MD [address] [place] [phone] documented as of this encounter Visit Diagnoses Not on filedocumented in this encounter Care Teams Cold Type Composing Machine Operator Relationship Specialty Start Date End Date Katarina Nails FNP [address], [address] [place] [address] PCP - General 05/07/24 documented as of this encounter
--- OUTSIDE RECORDS SUMMARY | 2024-07-27 10:32 | XMS_ITS | Clinical Summary ---
Author Organization [facility], Address [address] [place] [place] [address] Phone Care Team Providers Care Leasing Assistant Name Role Phone Katarina Nails Primary Care Provider [phone] Allergies Active Allergy Reactions Criticality Noted Date Comments Latex Hives Low 10/11/2018 Penicillins Rash Medium 10/11/2018 Quetiapine Rash,Other (see comments) Low 10/24/2018 Medications ARIPiprazole (ABILIFY) 10 MG tablet Take 10 mg by mouth in the morning. Active atenolol (TENORMIN) 50 MG tablet Take 50 mg by mouth in the morning. Active clonazePAM (KlonoPIN) 1 MG tablet Take 1 mg by mouth 2 (two) times a day if needed Active cloNIDine (CATAPRES) 0.1 MG tablet Take 0.1 mg by mouth in the morning and 0.1 mg in the evening. Active lamoTRIgine (LaMICtal) 150 MG tablet Take 150 mg by mouth in the morning. Active sertraline (ZOLOFT) 100 MG tablet Take 100 mg by mouth in the morning. Active polyethylene glycol (GLYCOLAX) 17 GM/SCOOP powder See Instructions, # 14 pack/packet, MIX 17 GM BY MOUTH DAILY DISSOLVE IN WATER BEFORE TAKING, [facility]/pharmacy #[id number] 01/24/2019 Active dicyclomine (BENTYL) 10 MG capsule Take 1 capsule by mouth 01/28/2022 Active Cholecalciferol (Vitamin D3) 1.25 MG (27325 UT) capsule Take by mouth 06/09/2018 Act herman docusate sodium (COLACE) 100 MG capsule Take 100 mg by mouth in the morning and 100 mg in the evening. Active mirtazapine (REMERON) 15 MG tablet Take 15 mg by mouth every night Active famotidine (PEPCID) 40 MG tablet 05/20/2023 Active Linzess 145 MCG capsule 06/02/2023 Active losartan (COZAAR) 100 MG tablet 04/08/2023 Active sulfamethoxazol e-trimethoprim 800-160 MG per tablet TAKE 1 TABLET BY MOUTH EVERY 12 HOURS FOR 5 DAYS 05/19/2023 Active amLODIPine (NORVASC) 10 MG tablet Take 1 tablet (10 mg total) by mouth 1 (one) time each day 90 tablet 3 08/04/2023 08/03/19 25 Active Active Problems Problem Noted Date Diagnosed Date Chronic kidney disease, stage 2 (mild) 4 Recurrent urinary tract infection 06/09/2023 Proteinuria 10/06/2022 Parathyroid adenoma 04/06/2022 Depressive disorder 03/08/2022 Hypercalcemia 01/28/2022 Hypertensive disorder 01/28/2022 Calculus of kidney Resolved Problems Problem Noted Date Diagnosed Date Resolved Date Bipolar disorder 03/08/2022 04/05/2022 Gastroesophageal reflux disease 03/08/2022 04/05/2022 Internal hemorrhoids 03/08/2022 022 Lymphadenopathy 03/08/2022 04/05/2022 Obese class I 03/08/2022 04/05/2022 Obstructive sleep apnea syndrome 03/08/2022 04/05/2022 Steatosis of liver 03/08/2022 Atrial fibrillation 03/08/2022 04/05/20 22 Hypercholesterolemia 03/08/2022 022 Chronic obstructive pulmonary disease 03/08/2022 04/05/2022 Anxiety 03/08/2022 04/05/2022 Hepatitis 03/08/2022 04/05/2022 Hyperparathyroidism 03/08/2022 04/05/20 22 Encounters Date Type Department Care Team Description 05/07/2024 Refill [facility], - [address] [place] [address] Gilma Jones 05/07/2024 Office Communication [facility] [address] [place] [phone] Rubens Palafox PA 05/02/2024 3:15 PM EST Office Visit [facility] [address] [place] [phone] Rubens Palafox PA Chronic kidney disease, stage 2 (mild) (Primary Dx); Hypertensive disorder; Parathyroid adenoma; Recurrent urinary tract infection from Last 3 Months Immunizations Name Administration Dates Next Due Influenza Whole 06/22/2017 Influenza, Unspecified 04/14/2022,06/11/2021,,04/04/2019 Pfizer SARS-COV-2 10/18/2020,09/26/2020 Shingrix 04/10/2020 Td, Unspecified 03/24/2016 Tdap 06/09/2018 Family History Medical History Relation Comments Cancer Father Dementia Father Hypertension Father Dementia Mother Hypertension Mother Cancer Sister Relation Status Comments Father Mother Sister Social History Tobacco Use Types Packs/Day Years Used Date Smoking Tobacco: Never Alcohol Use Standard Drinks/Week Comments Not Currently 1 (1 standard drink = 0.6 oz pur e alcohol) No Longer drink Comments Unknown Sex and Gender Information Value Date Recorded Sex Assigned at Not on file Legal Sex Female 3:13 PM EDT Gender Identity Not on file Sexual Orientation Not on file Last Filed Vital Signs Vital Sign Reading Time Taken Comments Blood Pressure 130/82 05/02/2024 3:15 PM EST Pulse 77 08/27/2022 10:53 AM EST Temperature 36.2 ??C (97.2 ??F) 08/27/2022 1 0:53 AM EST Respiratory Rate 16 08/27/2022 10:5 3 AM EST Oxygen Saturation 99% 08/27/2022 10: 53 AM EST Inhaled Oxygen Concentration - - Weight 81.6 kg (179 lb 12.8 oz) 05/02/2024 3:15 PM EST Height 152.4 cm (5') 05/02/2024 3:15 PM EST Body Mass Index 35.11 05/02/2024 3:15 PM EST Plan of Treatment Upcoming Encounters Date Type Department Care Team (Late st Contact Info) Description 11/21/2024 2:45 PM EDT Office Visit [facility], [address] [place] [phone] Gonsalo Antony MD [address] [place] [phone] Health Maintenance Due Date Last Done Comments Breast Cancer Screening 1962 Pneumococcal Vaccine: Pediat rics (0 to 5 Years) and At-Risk Patients (6 to 64 Years) (1 of 2 - PCV) 02/09/1968 Colorectal Cancer Screening: Annual FOBT 2011 Colorectal Cancer Screening: Colonoscopy 2011 Colorectal Cancer Screening: Sigmoidoscopy 2011 Hepatitis B Vaccine (1 of 3 - Risk 3-dose series) 2022 Influenza Vaccine Completed 05/03/2024, , 06/11/2021, Additional history exists Procedures Procedure Name Priority Date/Time Associated Diagnosis Comments VITAMIN D 25 HYDROXY Routine 05/04/2024 10:26 AM EST Chronic kidney disease, stage 2 (mild) PROTEIN / CREATININE RATIO, URINE Routine 05/04/2024 10:26 AM EST Chronic kidney disease, stage 2 (mild) URIC ACID Routine 05/04/2024 10:26 AM EST Chronic kidney disease, stage 2 (mild) URINALYSIS WITH MICROSCOPIC Routine 05/04/2024 10:26 AM EST Chronic kidney disease, stage 2 (mild) RENAL FUNCTION PANEL Routine 05/04/2024 10:26 AM EST Chronic kidney disease, stage 2 (mild) PTH, INTACT Routine 05/04/2024 10:26 AM EST Chronic kidney disease, stage 2 (mild) IRON PANEL (FE, TIBC, TSAT) Routine 05/04/2024 10:26 AM EST Chronic kidney disease, stage 2 (mild) CBC AND DIFFERENTIAL Routine 05/04/2024 10:26 AM EST Chronic kidney disease, stage 2 (mild) MICROSCOPIC EXAMINATION - DO NOT USE Routine 05/04/2024 10:26 AM EST from Last 3 Months Results * (ABNORMAL) Microscopic Examination (05/04/2024 10:26 AM EST) WBC, Urine >30(A) 0 - 5 /hpf [facility] RBC, Urine 0-2 0 - 2 /hpf [facility] Squamous Epithelial, Urine 0-10 0 - 10 /hpf [facility] Casts None seen None seen /lpf [facility] Bacteria, Urine Moderate(A ) None seen/Few [facility] 05/04/2024 10:2 6 AM EST 05/04/2024 [facility] MICROBIOLOGY - GENERAL OR DERABLES Final Result [facility] [address] [place] [address] * Iron Panel (Fe, TIBC, TSAT) (05/04/2024 10:26 AM EST) Iron 128 27 - 139 ug/dL [facility] TIBC 384 250 - 450 ug/dL [facility] UIBC 256 118 - 369 ug/dL [facility] Iron Saturation (TSat) 33 15 - 55 % [facility] Blood (Blood, Venous) 05/04/2024 10:26 AM EST 05/04/2024 [facility] BLOOD ORDERABLES Final Re sult Performing Organization Address City/[facility]/ZIP Co de Phone Number [facility] [address] [place] [address] * (ABNORMAL) Urine Protein / creatinine ratio (05/04/2024 10:26 AM EST) Creatinine, Ur 155.5 Not Estab. mg/dL [facility] Protein, Ur 77.3 Not Estab. mg/dL [facility] Urine Protein/Creati nine Ratio 497(H) 0 - 200 mg/g creat [facility] Urine (Urine, Clean Catch) 05/04/2024 10:26 AM EST 05/04/2024 [facility] URINE ORDERABLES Final Re sult Performing Organization Address City/[facility] Co de Phone Number [facility] [address] [place] [address] * (ABNORMAL) Vitamin D 25 hydroxy (05/04/2024 10:26 AM EST) Vitamin D, 25-OH, Total 22.4(L) 30.0 - 100.0 ng/mL [facility] Comment: Vitamin D deficiency has been defined by the [place] of Medicine and an Endocrine Society practice guideline as a level of serum 25-OH vitamin D less than 20 ng/mL (1,2). The Endocrine Society went on to further define vitamin D insufficiency as a level between 21 and 29 ng/mL (2). 1. IOM ([place] of Medicine). 2010. Dietary reference ?? intakes for calcium and D. [place]: The ?? National Academyoucalc Press. 2. Venu MF, Priyanka NC, Tana PLEITEZ, et al. ?? Evaluation, treatment, and prevention of vitamin D ?? deficiency: an Endocrine Society clinical practice ?? guideline. JCEM. 2010; 96(4):1911-30. Blood (Blood, Venous) 05/04/2024 10:26 AM EST 05/04/2024 [facility] BLOOD ORDERABLES Final Re sult [facility] [address] [place] [address] * (ABNORMAL) Urinalysis with microscopic (05/04/2024 10:26 AM EST) Specific Weed, Urine 1.020 1.005 - 1.030 [facility] pH Urine 6.0 5.0 - 7.5 [facility] [phone] Color, Urine Yellow Yellow [facility] [phone] Appearance Urine Turbid(A) Clear [facility] [phone] WBC Esterase Urine 3+(A) Negative [facility] Protein, Ur 1+(A) Negative/Tra ce [facility] Glucose, Ur Negative Negative [facility] Ketones, Urine Negative Negative [facility] Blood Urine 1+(A) Negative [facility] [phone] Bilirubin Urine Negative Negative [facility] Urobilinogen Urine 1.0 0.2 - 1.0 mg/dL [facility] Nitrite, Urine Negative Negative [facility] Microscopic Examination See below: [facility] Comment:Microscopic was julio cated and was performed. Urine (Urine, Clean Catch) 05/04/2024 10:26 AM EST 05/04/2024 us [facility] URINE ORDERABLES Final Re sult [facility] [address] [place] [address] * (ABNORMAL) CBC and differential (05/04/2024 10:26 AM EST) WBC 7.4 3.4 - 10.8 x10E3/uL [facility] RBC 3.88 3.77 - 5.28 x10E6/uL [facility] Hemoglobin 12.8 11.1 - 15.9 g/dL [facility] Hematocrit 37.9 34.0 - 46.6 % [facility] MCV 98(H) 79 - 97 fL [facility] MCH 33.0 26.6 - 33.0 pg [facility] MCHC 33.8 31.5 - 35.7 g/dL [facility] RDW 13.1 11.7 - 15.4 % [facility] Platelets 197 150 - 450 x10E3/uL [facility] Neutrophils Relative 66 Not Estab. % [facility] Lymphocytes Relative 24 Not Estab. % [facility] Monocytes 6 Not Estab. % [facility] Eosinophils Relative 4 Not Estab. % [facility] Basophils Relative 0 Not Estab. % [facility] Neutrophils Absolute 4.8 1.4 - 7.0 x10E3/uL [facility] Lymphocytes Absolute 1.8 0.7 - 3.1 x10E3/uL [facility] Monocytes Absolute 0.4 0.1 - 0.9 x10E3/uL [facility] Eosinophils Absolute 0.3 0.0 - 0.4 x10E3/uL [facility] Basophils Absolute 0.0 0.0 - 0.2 x10E3/uL [facility] Immature Granulocytes 0 Not Estab. % [facility] Immature Grans (Absolute) 0.0 0.0 - 0.1 x10E3/uL [facility] Blood (Blood, Venous) 05/04/2024 10:26 AM EST 05/04/2024 [facility] BLOOD ORDERABLES Final Re sult Performing Organization Address City/[facility]/ZIP Co de Phone Number [facility] [address] [place] [address] * Uric acid (05/04/2024 10:26 AM EST) Uric Acid 6.2 3.0 - 7.2 mg/dL [facility] Comment:Therapeutic target f or gout patients: <6.0 Blood (Blood, Venous) 05/04/2024 10:26 AM EST 05/04/2024 [facility] BLOOD ORDERABLES Final Re sult [facility] [address] [place] [address] * PTH, intact (05/04/2024 10:26 AM EST) PTH 41 15 - 65 pg/mL [facility] Blood (Blood, Venous) 05/04/2024 10:26 AM EST 05/04/2024 [facility] BLOOD ORDERABLES Final Re sult [facility] [address] [place] [address] * (ABNORMAL) Renal function panel (05/04/2024 10:26 AM EST) Glucose 91 70 - 99 mg/dL [facility] BUN 15 8 - 27 mg/dL [facility] Creatinine 0.94 0.57 - 1.00 mg/dL [facility] eGFR CKD-EPI CR 2020 69 >59 mL/min/1.7 3 [facility] BUN/Creatinine Ratio 16 12 - 28 [facility] Sodium 142 134 - 144 mmol/L [facility] Potassium 4.2 3.5 - 5.2 mmol/L [facility] Chloride 105 96 - 106 mmol/L [facility] Bicarbonate (CO2) 18(L) 20 - 29 mmol/L [facility] Calcium 10.1 8.7 - 10.3 mg/dL [facility] Albumin 5.1(H) 3.9 - 4.9 g/dL [facility] Phosphorus 3.3 3.0 - 4.3 mg/dL [facility] Blood (Blood, Venous) 05/04/2024 10:26 AM EST 05/04/2024 [facility] BLOOD ORDERABLES Final Re [facility] [address] [place] [address] from Last 3 Months Insurance [facility] Care Teams Leasing Assistant Relationship Specialty Start Date End Date Katarina Nails FNP [address], [address] [place] [address] PCP - General 05/07/24
--- OUTSIDE RECORDS SUMMARY | 2024-07-27 10:32 | XMS_ITS | Encounter Summary ---
Author Organization [facility] Address [address] [place] [address] Phone Care Team Providers Care Medical Records Assistant Name Role Phone Katarina Nails YESSI Primary Care Provider [phone] Reason for Visit * Reason Comments Med Change Request Encounter Details Date Type Department Care Team (Late st Contact Info) Description 06/08/2023 Refill [facility] [address] [place] [phone] Rubens Palafox PA [address] [place] [phone] Social History Tobacco Use Types Packs/Day Years [...] Visit [facility] [address] [place] [phone] Gonsalo Antony MD [address] [place] [address] documented as of this encounter Visit Diagnoses Not on filedocumented in this encounter Care Teams Medical Records Assistant Relationship Specialty Start Date End Date Katarina Nails FNP [address], [facility] [address] [place] [address] PCP - General 05/07/24 documented as of this encounter
== END 2024-07-27 09:54 | disposition home or self-care (01) ==
LOC: HO.US 09:53
PROVIDERS: PCP Nurse Practitioner Family; Visit Provider Nurse Practitioner Family
DX: N39.0 Urinary tract infection, site not specified (principal)
CPT/HCPCS: 76770

== ENCOUNTER 2024-08-06 12:34 | Outpatient (AMB) | payer OTHER, MEDICARE, SELFPAY ==
--- NOTE | 2024-08-06 13:05 | MHC.OFFVIS ---
Intake Visit Reasons: 2m/US(set) Intake Note: Patient presents today for follow up on : recurrent uti and ultrasound results imaging completed: 07/27/24 Urology Medications: estrace cream Blood Thinner: none PVR: 140ml's Roto Gravure Press Operator Required: No Accompanied by: Self / Same As Patient Allergies Penicillins Allergy (Verified 08/06/24 13:37) Hives latex Adverse Reaction (Verified 08/06/24 13:37) Unknown seroquil Allergy (Uncoded 08/06/24 13:37) Seizure Medication List - Last Reconciled 08/06/24 by YESSI Fleming- albuterol sulfate mg inhalation albuterol sulfate 90 mcg/actuation inhalation amlodipine 10 mg PO DAILY aripiprazole 10 mg PO DAILY atenolol 50 mg PO DAILY clonazepam 1 mg PO TID PRN clonidine HCl 0.1 mg PO TID dicyclomine 10 mg PO Q6H PRN estradiol 0.01%(0.1mg/gram) 1 g vaginal 3XW 90 days ezetimibe 10 mg PO DAILY famotidine 40 mg PO BID glbaphpunfa-pmeegmfhi-cqdjkjja 200-62.5-25 mcg (Trelegy Ellipta) 1 ea inhalation DAILY lamotrigine 200 mg PO DAILY lamotrigine mg PO DAILY linaclotide (Linzess) 145 mcg PO DAILY losartan 100 mg PO DAILY mirtazapine 15 mg PO BEDTIME omeprazole 40 mg PO DAILY sertraline 100 mg PO BID HPI Comments Details: Latricia is a very pleasant 64-year-old female patient of Dr. Nails who was accompanied by her and son at today's office visit. 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 She presents to the office today for follow-up. Of note, patient was seen approximately 2 months ago as a new patient for recurrent urinary tract infections at which time she was started on Estrace cream and a retroperitoneal ultrasound was ordered for further assessment evaluation. These results were reviewed with the patient and her family today. 08/21 bilateral kidneys are normal in size and echotexture. No collecting system dilatation of either kidney. There is a possible focal prominence normal parenchyma in the mid left kidney. Normal color Doppler. The urinary bladder is unremarkable. Pre void bladder volume is approximately 310 mL. Postvoid bladder volume is approximately 75 mL. Patient with previous MRI imaging 09/15 that notes multifocal left renal cortical thinning/scarring. No hydronephrosis. Kidneys enhance symmetrically. No suspicious masses noted. She denies having had any urinary tract infections and or UTI like symptoms since her last office visit here. She reports compliance with Estrace cream as prescribed and is requesting a refill. She reports typical UTI like symptoms are foul-smelling urine and cloudy urine. Patient and family discuss her longstanding history of surgical interventions to include appendectomy, bladder surgery with Dr. Villa over 20 years ago, C-sections, cholecystectomy, hernia repairs, hysterectomy partial, pancreatic surgery with pancreas removed and parathyroidectomy. She discusses following up at [facility] as well as [facility] for a 2nd opinion of question of hepatitis-C. She otherwise denies urinary urgency, urinary frequency, incontinence, nocturia, hematuria, dysuria, changes to urinary stream, flank pain, fever, and or chills. We discussed at length potential causes of recurrent urinary tract infections. In office urinalysis results reviewed with the patient today. PVR 140mL. She otherwise offers no other issues or concerns at this time. [facility] Medical History Chronic RUQ pain Kidney stones Generalized anxiety disorder AC on CPAP Constipation Hepatitis C Chronic back pain Bipolar disorder Bilateral knee pain Seizures HTN (hypertension) GERD (gastroesophageal reflux disease) PTSD (post-traumatic stress disorder) Liver cirrhosis secondary to GARCIA COPD (chronic obstructive pulmonary disease) Surgical History Hx of cholecystectomy H/O parathyroidectomy History of pancreatectomy S/P partial hysterectomy H/O hernia repair Hx of appendectomy Family History Sister Ovarian cancer Mother Skin cancer Review of Systems Const All systems reviewed & are unremarkable except as noted in HPI and below Physical Exam Const General: cooperative, healthy appearing, comfortable, no acute distress, well developed, alert and awake Nutritional Appearance: overweight Orientation/consciousness: patient oriented x3 Limitations: no limitations HEENT Head: Yes normal to inspection, Yes normocephalic and Yes atraumatic Ears: hearing grossly normal bilaterally Eyes General: appearance normal, both eyes and all related structures Neck Neck: Yes normal visual inspection and Yes trachea midline Chest Chest palpation & inspection: normal inspection of the chest Resp Effort & Inspection: normal respiratory effort and able to speak in complete sentences Cardio Rate: regular rate GI Inspection: Yes normal to inspection General: Yes no CVA tenderness Back/Spine/Pelvis Back: no CVA tenderness Skin General skin exam: no rashes or lesions noted Neuro General: patient oriented x3 Extrem General: Yes normal to inspection Psych Appearance: grossly normal and well kempt Mental Status: mental status grossly normal Speech and movement: Normal speech and movement present and Clear speech present Affect: normal affect Attitude: cooperative Thought process: Normal thought process present Thought content: Normal thought content present Insight: Fair insight present (Psych) Judgement: Fair judgement present (Psych) Office Procedures Post Void Residual Post Residual Void Post Void Residual (PVR): 140 14911-Oqnx Void Residual by ultrasound Results AMB Urinalysis, Automated UA Leukoctes 0 Aniya/uL Last Edit by Salma Izquierdo on 08/06/24 13:30 UA Nitrite Last Edit by Salma Izquierdo on 08/06/24 13:30 UA Urobilinogen 0.2 mg/dL Last Edit by JakeBueda Timbo on 08/06/24 13:30 UA Protein 30 mg/dL Last Edit by Salma Izquierdo on 08/06/24 13:30 UA pH 6.0 Last Edit by Salma Izquierdo on 08/06/24 13:30 UA Blood 0 Chong/uL Last Edit by Salma Izqueirdo on 08/06/24 13:30 UA Specific Neopit 1.015 Last Edit by Salma Izquierdo on 08/06/24 13:30 UA Ketone Last Edit by JakeTapatalkjerry FordKedzoh on 08/06/24 13:30 UA Bilirubin 0 mg/dL Last Edit by sickweather Timbo on 08/06/24 13:30 UA Glucose 0 mg/dL Last Edit by Business Combinedjerry Izquierdo on 08/06/24 13:30 Results Reviewed Results Reviewed: Laboratory Last Values Urine pH (Auto) 6.0 08/06/24 13:29 Specific [place] (Auto) 1.015 08/06/24 13:29 Urine Protein (Auto) 30 mg/dL 08/06/24 13:29 Glucose (UA)(Auto) 0 mg/dL 08/06/24 13:29 Urine Blood (Auto) 0 Chong/uL 08/06/24 13:29 Urine Bilirubin (Auto) 0 mg/dL 08/06/24 13:29 Urine Urobilinogen (Auto) 0.2 mg/dL 08/06/24 13:29 Leukocyte Esterase (Auto) 0 Aniya/uL 08/06/24 13:29 Date of Service: 07/27/24 US Renal Comparison: None Findings: Right kidney normal size and echotexture, 12.0 cm length. Left kidney normal size and echotexture, 13.7 cm length. No collecting system dilatation of either kidney. There is possible focal prominence normal parenchyma in the mid left kidney. Normal color Doppler. Urinary bladder is unremarkable. Prevoid volume 310 mL. Postvoid volume 74 mL. Bilateral ureteral jets are visualized. IMPRESSION: 1. Possible left renal parenchymal anatomic variant. Consider confirmation with CT to exclude renal mass. Assessment & Plan Assessment & Plan (1) Recurrent urinary tract infection: Code(s): N39.0 - Urinary tract infection, site not specified Category: Medical Plan In office urinalysis results reviewed with the patient today; as noted above. Recent retroperitoneal ultrasound results reviewed with the patient today; as noted above. Continue Estrace cream. Patient currently denies any bothersome urinary issues. She reports be happy with current voiding parameters. We discussed at length potential causes of recurrent urinary tract infections as well as further treatment options and risks and benefits of these treatment options. Discussed attempting to double void to assist with incomplete bladder emptying. Discussed UTI prevention with D mannose supplement, vitamin-C, increasing fluid intake, behavioral therapy with timed voiding, perineal hygiene and postcoital voiding, and management of constipation with stool softeners and increased fiber intake. Follow-up in 3 months with PVR; or sooner with any issues, concerns, and or questions. Orders: Orders AMB Urinalysis Automated Today Z13.9 - Encounter for screening, unspecified AMB Post Void Residual by ultrasound Today N39.0 - Urinary tract infection, site not specified Medications: Refilled estradiol 0.01%(0.1mg/gram) Pea-sized amount to urethra daily x1 month and then 3 times per week thereafter 1 g vaginal 3XW 42.5 grams 2RF 90 days N36.2 - Urethral caruncle, N39.0 - Urinary tract infection, site not specified, N95.2 - Postmenopausal atrophic vaginitis Patient Instructions: The patient had an opportunity to ask questions regarding the treatment plan. All questions were answered. Physical exam, labs, and imaging were discussed and reviewed in detail. As well as risks, benefits, and discussion of treatment choices. No major barriers to understanding were identified. The patient expressed understanding and agreement with the above treatment plan. The patient was made aware they should contact our office by phone for worsening of their current condition, the appearance of new symptoms, or with any questions or concerns. Compliance is encouraged with any medications and follow up testing that is ordered. It is a privilege to be allowed the opportunity to participate in? your urological care.? Again, if you have any questions or concerns If you have any questions or concerns please do not hesitate to contact me. The office is [phone]. This note is constructed using voice recognition software. While every effort has been made to ensure accuracy account manager relief errors may have been included. Yours sincerely, AMI Fleming Coding Level of Care Code Est Pt Level 3 (70537) Complex EM visit Add On G2211 Diagnoses Recurrent urinary tract infection N39.0 CPT Codes Post Residual Void - PVR CPT Code: 07865-Eglr Void Residual by ultrasound ([id number])
== END 2024-08-06 13:40 | disposition home or self-care (01) ==
PROVIDERS: PCP Internal Medicine; Visit Provider Nurse Practitioner Family
DX: Z13.9 Encounter for screening, unspecified (principal); N39.0 Urinary tract infection, site not specified
CPT/HCPCS: 99213

== ENCOUNTER → 2024-08-06 12:34 | Outpatient (BNVA) | payer OTHER, MEDICARE, SELFPAY | PROVIDERS: PCP Internal Medicine; Visit Provider Nurse Practitioner Family | DX: N39.0 Urinary tract infection, site not specified (principal); N36.2 Urethral caruncle; N95.2 Postmenopausal atrophic vaginitis | CPT/HCPCS: 51798; 81003 ==

== ENCOUNTER 2024-08-23 16:17 | Outpatient (REF) | payer OTHER, MEDICARE, SELFPAY ==
--- OUTSIDE RECORDS SUMMARY | 2024-08-23 19:21 | XMS_ITS | Encounter Summary ---
Author Organization [facility], Address [address] [place] [address] Phone Care Team Providers Care Vp Product Name Role Phone Katarina Nails YESSI Primary Care Provider [phone] Encounter Details Date Type Department Care Team (Late st Contact Info) Description 03/30/2022 Documentation Only [facility] [address] [place] [address] Rubens Palafox PA Social History Tobacco Use Types Packs/Day Years [...] Visit [facility], [address] [place] [address] Gonsalo Antony MD [address] [place] [address] documented as of this encounter Visit Diagnoses Not on filedocumented in this encounter Care Teams Vp Product Relationship Specialty Start Date End Date Katarina Nails FNP [address] [facility] [address] [place] [address] PCP - General 05/07/24 documented as of this encounter
--- OUTSIDE RECORDS SUMMARY | 2024-08-23 19:21 | XMS_ITS | Encounter Summary ---
Author Organization [facility] Address [address] [place] [address] Phone Care Team Providers Care Foreign Service Teacher Name Role Phone Katarina Nails YESSI Primary Care Provider [phone] Reason for Visit * Reason Comments Med Change Request Encounter Details Date Type Department Care Team (Late st Contact Info) Description 06/08/2023 Refill [facility] [address] [place] [address] Rubens Palafox PA Social History [...] Visit [facility] [address] [place] [address] Gonsalo Antony MD [address] [place] [address] documented as of this encounter Visit Diagnoses Not on filedocumented in this encounter Care Teams Foreign Service Teacher Relationship Specialty Start Date End Date Katarina Nails FNP [address], [address] [place] [address] PCP - General 05/07/24 documented as of this encounter
--- OUTSIDE RECORDS SUMMARY | 2024-08-23 19:21 | XMS_ITS | Clinical Summary ---
Author Organization [facility], Address [address] [place] [address] Phone Care Team Providers Care Psychiatric Social Worker Name Role Phone Katarina Nails Primary Care Provider [phone] Allergies Active Allergy Reactions Criticality Noted Date [...] DAILY DISSOLVE IN WATER BEFORE TAKING, [facility]/pharmacy #[id number] 9 Active dicyclomine (BENTYL) 10 MG capsule Take 1 capsule by mouth 2 Active Cholecalciferol (Vitamin D3) 1.25 MG (57327 UT) capsule Take by mouth 8 Active docusate sodium (COLACE) 100 MG capsule Take 100 mg by mouth in the morning and 100 mg in the evening. Active mirtazapine (REMERON) 15 MG tablet Take 15 mg by mouth every night Active famotidine (PEPCID) 40 MG tablet 3 Active Linzess 145 MCG capsule 3 Active losartan (COZAAR) 100 MG tablet 3 Active sulfamethoxazol e-trimethoprim 800-160 MG per tablet TAKE 1 TABLET BY MOUTH EVERY 12 HOURS FOR 5 DAYS 3 Active amLODIPine (NORVASC) 10 MG tablet Take 1 tablet (10 mg total) by mouth 1 (one) time each day 90 tablet 3 5 08/17/19 26 Active amLODIPine (NORVASC) 10 MG tablet Take 1 tablet (10 mg total) by mouth 1 (one) time each day 90 tablet 3 4 08/17/19 25 Discontinu ed(Reorder (does not appear on AVS)) Active Problems Problem Noted Date Diagnosed Date [...] syndrome 03/08/2022 04/05/2022 Steatosis of liver 03/08/2022 2 Atrial fibrillation 03/08/2022 04/05/20 22 Hypercholesterolemia 03/08/2022 022 Chronic obstructive pulmonary disease 03/08/2022 04/05/2022 Anxiety 03/08/2022 04/05/2022 Hepatitis 03/08/2022 04/05/2022 Hyperparathyroidism 03/08/2022 04/05/20 22 Encounters Date Type Department Care Team Description 08/17/2024 Refill [facility], [address] [place] [address] Gonsalo nAtony MD from Last 3 Months Immunizations Name Administration [...] Visit [facility], [address] [place] [address] Gonsalo Antony MD [address] [place] [phone] Health Maintenance Due Date Last Done Comments [...] Completed 05/03/2024, , 06/11/2021, Additional history exists Insurance [facility] MEDIC[employer] Care Teams Psychiatric Social Worker Relationship Specialty Start Date End Date Katarina Nails FNP [address] [place] [id number] PCP - General 05/07/24
--- OUTSIDE RECORDS SUMMARY | 2024-08-23 19:22 | XMS_ITS | Encounter Summary ---
Author Organization [facility] Address [address] [place] [address] Phone Care Team Providers Care Body Work Auto Trimmer Name Role Phone Katarina Nails YESSI Primary Care Provider Encounter Details Date Type Department Care Team (Late st Contact Info) Description 06/07/2023 Documentation Only [facility] [address] [place] [address] Rubens Palafox PA Social History [...] [facility] [address] [place] [address] Gonsalo Antony MD [address] [place] [address] documented as of this encounter Visit Diagnoses Not on filedocumented in this encounter Care Teams Body Work Auto Trimmer Relationship Specialty Start Date End Date Katarina Nails FNP [address], [address] [place] [address] PCP - General 05/07/24 documented as of this encounter
--- OUTSIDE RECORDS SUMMARY | 2024-08-23 19:22 | XMS_ITS | Encounter Summary ---
Author Organization [facility] Address [address] [place] [address] Phone Care Team Providers Care Independent Sales Representative Name Role Phone Katarina Nails YESSI Primary Care Provider [phone] Encounter Details Date Type Department Care Team (Late st Contact Info) Description 02/29/2024 Documentation Only [facility] [address] [place] [address] [address] Jones [address] [place] [phone] Social History Tobacco Use Types Packs/Day [...] Visit [facility] [address] [place] [phone] Gonsalo Antony MD [address] [place] [address] documented as of this encounter Visit Diagnoses Not on filedocumented in this encounter Care Teams Independent Sales Representative Relationship Specialty Start Date End Date Katarina Nails FNP [address], [address] [place] [address] PCP - General 05/07/24 documented as of this encounter
--- OUTSIDE RECORDS SUMMARY | 2024-08-23 19:22 | XMS_ITS | Encounter Summary ---
Author Organization [facility] Address [address] [place] [address] Phone Care Team Providers Care Cleat Layer Name Role Phone Katarina Nails YESSI Primary Care Provider [phone] Encounter Details Date Type Department Care Team (Late st Contact Info) Description 03/03/2022 Documentation Only [facility] [address] [place] [address] Rubens Palafox PA Social History [...] Visit [facility] [address] [place] [address] Gonsalo Antony MD [address] [place] [phone] documented as of this encounter Visit Diagnoses Not on filedocumented in this encounter Care Teams Cleat Layer Relationship Specialty Start Date End Date Katarina Nails FNP [address], [address] [place] [address] PCP - General 05/07/24 documented as of this encounter
--- OUTSIDE RECORDS SUMMARY | 2024-08-23 19:22 | XMS_ITS | Encounter Summary ---
Author Organization [facility] Address [address] [place] [address] Phone Care Team Providers Care Appeals Referee Name Role Phone Katarina Nails YESSI Primary Care Provider [phone] Reason for Visit * Reason Onset Date Comments Med Refill 08/17/2024 Encounter Details Date Type Department Care Team (Late st Contact Info) Description 08/17/2024 Refill [facility] [address] [place] [phone] Gonsalo Antony MD [address] [place] [phone] Social History Tobacco Use Types Packs/Day Years [...] Visit [facility] [address] [place] [address] Gonsalo Antony MD [address] [place] [address] documented as of this encounter Visit Diagnoses Not on filedocumented in this encounter Care Teams Appeals Referee Relationship Specialty Start Date End Date Katarina Nails FNP [address] [facility] [address] [place] [address] PCP - General 05/07/24 documented as of this encounter
== END 2024-08-23 16:18 | disposition home or self-care (01) ==
LOC: HO.HOSX 16:17
PROVIDERS: Visit Provider Physician Assistant
DX: Z13.89 Encounter for screening for other disorder (principal)

== ENCOUNTER 2024-09-10 10:38 | Outpatient (AMB) | payer OTHER, MEDICARE, SELFPAY ==
--- NOTE | 2024-09-10 10:45 | A.OFFVIS_ITS ---
Vital Signs 09/10/24 10:48 Height 5 ft Weight 180 lb 6 oz BMI 35.2 BP 155/74 H Blood Pressure Location Lt brachial Position Sitting Pulse 80 Pulse Source Pulse Oximeter Pulse Oximetry (%) 99 Oxygen Delivery Method Room Air Intake Visit Reasons: follow up from no show on 08/17/real from 08/24 Intake Note: Pain today 04/05 Beater And Pulper Feeder Required: No Accompanied by: Family/Other Allergies Penicillins Allergy (Verified 09/10/24 10:49) Hives latex Adverse Reaction (Verified 09/10/24 10:49) Unknown seroquil Allergy (Uncoded 08/06/24 13:37) Seizure HPI Comments Details: The patient is a 64-year-old female presenting with chronic low back pain and abdominal pain. Her chronic low back pain is characterized by facet arthritis and degenerative disc disease at L4-L5, leading to significant impact on her daily functionality and requiring close management. Despite current use of marijuana edibles for pain relief, it continues to interfere with typical activities and occasionally poses difficulties in attending appointments. Unfortunately, her insurance denied diagnostic lumbar medial branch blocks. Her chronic low back pain is persistent and predominately axial in nature. She denies radiating leg pain, numbness, tingling, bladder or bowel dysfunction or saddle anesthesia. The patient also experiences significant abdominal pain, which she rates as being more severe than her back pain. This abdominal pain has persisted with a significant history of pancreatitis and pancreatectomy acknowledged, requiring planned GI evaluations including potential future colonoscopy and endoscopy per patient. Due to scheduling constraints, GI follow up is not anticipated until October. Her condition is further complicated by dietary restrictions due to pain and a past pancreas condition. She has to take marijuana edibles prior each meal. She feels her abdomen has been more distended and she plans to seek evaluation for this in local ER. Additional concerns include explorations into hepatic pain and potential kidney and pulmonary issues, with mild lower lobe pulmonary fibrosis found on recent imaging. Current management focuses on ruling out any severe underlying conditions and addressing multifactorial pain causes through coordinated care. Patient denies any recent cough, cold, infection, fever, infection, tumor, fracture, cord compression or other significant changes in medical history since last office visit. - Onset: Chronic and ongoing. - Quality and Character: Constant, aching and dull, sharp pain. - Primary Location: Low back, with pain radiating to buttocks particularly during movements. - Areas of Radiation: Sacral, buttocks areas - Aggravating Factors: Bending over, sitting down, standing up from sitting, and getting out of bed. - Relieving Factors: Use of marijuana edibles. Heat therapy, rest, occasionally Naproxen - Interference: Affects daily activities, including sleep, and occasionally results in sharp pains while seated. - Affect: Significant impact on quality of life with limitations on daily activities; the patient reports good sleep with medication. - Analgesia: Current pain management includes marijuana edibles taken multiple times a day. - Adverse Effects: Not explicitly detailed; reliance on medication. - Activities of Daily Living: Pain interferes with daily activities; affects ability to bend, sit, or stand easily. - Aberrant Drug Related Behaviors: None reported; use of marijuana edibles appropriately for pain management. PRIOR: Patient presents today via telehealth encounter to review recent spine and knee xrays. She continues to endorse axial low back pain with activities and at rest and bilateral knee pain with walking or climbing stairs. Patient also reports increased yellowing of her skin and eyes with persistent right upper quadrant pain. We received her recent liver US and old records from previous GI providers, which were reviewed and scanned into patient's chart. Patient reports she would like to transfer her GI care to [facility] and requests referral to our GI group. Denies any recent cough, cold, infection, fever or other significant changes in medical history since last office visit. Denies any changes to medications, medical history or recent hospitalizations. 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 Patient is followed by [facility] for liver cirrhosis due to GARCIA and chronic hepatitis C. She also reports history of following GI provider at [facility]. Reports chronic constipation, bloating, and right upper quadrant pains. Patient also has history of kidney stones with intermittent sharp pain in her left back and recurrent UTI. Back pain is axial, non-radiating but also increases with bending forward due to RUQ pain. Reports h/o back injections with partial pain relief. Denies previous spine surgery. Patient reports anxiety, depression and PTSD has been stable on current treatment and has regular follow up with Dr. Scott. She takes clonazepam 1 mg TID, clonidine, Aripiprazole, Lamotrigine, sertraline. No seizure activity in a long time, stable on. Patient is accompanied by her who is her primary food service coordinator. Patient is disability due to PTSD, back pain, and liver cirrhosis. She lives with her and 2 children. Denies alcohol consumption or smoking. Reports use of marijuana edibles for pain. Oswestry Low Back Disability Score=32 (severe disability) Location: RUQ pain due to Hep C and GARCIA, chronic low back pain Duration: Chronic pain since 2013, worsening for past 2 years Characteristics of symptom or complaint: Throbbing, shooting, stabbing, sharp, crushing, aching, tiring, spreading Aggravating or associated factors: Movements, constant pains unrelated to PO intake or fasting Relieving factors: Marijuana edibles, dicyclomine, Naprosyn Treatment: [facility], h/o following GI provider at [facility] Medical History Chronic RUQ pain Kidney stones Generalized anxiety disorder AC on CPAP Constipation Hepatitis C Chronic back pain Bipolar disorder Bilateral knee pain Seizures HTN (hypertension) GERD (gastroesophageal reflux disease) PTSD (post-traumatic stress disorder) Liver cirrhosis secondary to GARCIA COPD (chronic obstructive pulmonary disease) Surgical History Hx of cholecystectomy H/O parathyroidectomy History of pancreatectomy S/P partial hysterectomy H/O hernia repair Hx of appendectomy Family History Sister Ovarian cancer Mother Skin cancer Review of Systems Const Details: - Musculoskeletal: Reports chronic low back pain. - Gastrointestinal: Reports severe abdominal pain, occasional dietary intolerance. - Neurological: Denies recent infections, rashes, tumors, fractures, or cord compression. - Sleep: Reports good sleep with the aid of medication. All systems reviewed & are unremarkable except as noted in HPI and below Physical Exam Vital Signs: Last Vital Signs Pulse 80 09/10/24 10:48 BP 155/74 H 09/10/24 10:48 Pulse Ox 99 09/10/24 10:48 Oxygen Delivery Method Room Air 09/10/24 10:48 BMI result Body Mass Index 35.2 General: Appears afebrile. Alert and oriented. Mood and affect appropriate. Follows and participates in conversation appropriately. Respiratory effort is unlabored. No cough. Able to transition from sit to stand unassisted. Ambulates with bilaterally normal heel strike and toe off. GI Inspection: Yes distended, Yes obesity and No scar Palpation (GI): Tenderness to palpation present (GI) in the LUQ, in the RUQ and periumbilically; with no rebound tenderness General: Yes no CVA tenderness Back/Spine/Pelvis Other: Limited lumbar ROM due to pain and chronic abdominal pain with distension. Lumbar extension and axial rotation reproduces moderate to severe pain. Lumbar flexion reproduces abdominal pain but not back pain. Painful facet loading bilaterally. Mild to moderate TTP in the projection of both SIJ. Back: no CVA tenderness Cervical Spine: loss of normal cervical lordosis, cervical muscular tenderness and No Cervical spine tenderness Thoracic/Lumbar Spine: thoracic and lumbar spine normal to inspection, No Thoracic/lumbar spine scar(s), Lasegue's sign negative, straight leg raise negative bilaterally, pain with thoraco-lumbar ROM, thoraco-lumbar ROM limited, No thoracic spinal tenderness and lumbar spinal tenderness (L3-S1) Pelvis: buttock tenderness bilaterally Sacroiliac joints: bilaterally (+Walter's test) tender to palpation Assessment & Plan Assessment & Plan (1) Lumbosacral spondylosis: Code(s): M47.817 - Spondylosis without myelopathy or radiculopathy, lumbosacral region Category: Medical (2) Chronic back pain: Code(s): M54.9 - Dorsalgia, unspecified; G89.29 - Other chronic pain Category: Medical (3) Chronic abdominal pain: Code(s): R10.9 - Unspecified abdominal pain; G89.29 - Other chronic pain Category: Medical (4) Sacroiliac joint pain: Code(s): M53.3 - Sacrococcygeal disorders, not elsewhere classified Category: Medical Plan The plan emphasizes the reassessment for diagnostic lumbar medial branch blocks to address chronic low back pain with a follow-up evaluating the effectiveness and considering further interventional therapies if successful. Patient is currently managing her pain with marijuana edibles and occasionally Naproxen, continues with monitoring, while pending GI evaluation for detailed abdominal and hepatic pain management is acknowledged. Close observation for any acute increase in abdominal symptom severity is advised, and ongoing coordination with GI specialists remains crucial to addressing her multifactorial health concerns. In meantime, we will resubmit request for Bilateral Diagnostic L3-L4 DR L5 MBB with local and fluoroscopy for axial low back pain. All questions and concerns have been addressed with patient and family today. Follow up after injections and sooner as needed. Patient was informed and verbally consented to the use of an ambient scribe for clinic note documentation during this visit. Patient Instructions: During the visit, we discussed the multifactorial etiology of the patient's chronic low back pain and related intervention strategies. I informed the patient about the potential role of diagnostic lumbar medial branch blocks to directly target arthritic components of pain and explained the associated process, risks, and potential outcomes, including stimulation therapy and radiofrequency ablation as further steps if positive. I emphasized the need for ongoing coordination with GI specialists, considering her history of pancreatitis and acute on chronic abdominal pain, with potential endoscopic evaluations in the near future per patient. The patient and I discussed taking prompt action should symptoms escalate, especially regarding her abdominal condition, suggesting possible emergency care if required. Coding Level of Care Code Est Pt Level 4 (62828) Complex EM visit Add On G2211 Diagnoses Lumbosacral spondylosis M47.817 Chronic back pain M54.9; G89.29 Chronic abdominal pain R10.9; G89.29 Sacroiliac joint pain M53.3
[2024-09-10 10:48] VITALS: BP 155/74; PULSE 80; O2SAT 99; BMI 35.2
--- OUTSIDE RECORDS SUMMARY | 2024-09-10 12:07 | XMS_ITS | Encounter Summary ---
Author Organization [facility] Address [address] [place] [address] Phone Care Team Providers Care Cable Television Line Technician Name Role Phone Katarina Nails YESSI Primary Care Provider Reason for Visit * Reason Onset Date Comments Med Refill 08/17/2024 Encounter Details Date Type Department Care Team (Late st Contact Info) Description 08/17/2024 Refill [facility] [address] [place] [phone] Gonsalo Antony MD [address] [place] [address] [place] [address] Social History Tobacco Use Types Packs/Day Years [...] Visit [facility] [address] [place] [address] Gonsalo Antony MD [address] [facility] [address] [place] [address] documented as of this encounter Visit Diagnoses Not on filedocumented in this encounter Care Teams Cable Television Line Technician Relationship Specialty Start Date End Date Katarina Nails FNP [address] [facility] [address] [place] [address] PCP - General 05/07/24 documented as of this encounter
--- OUTSIDE RECORDS SUMMARY | 2024-09-10 12:07 | XMS_ITS | Encounter Summary ---
Author Organization [facility] Address [address] [place] [address] Phone Care Team Providers Care Upset Operator Name Role Phone Katarina Nails YESSI Primary Care Provider [phone] Encounter Details Date Type Department Care Team (Late st Contact Info) Description 03/03/2022 Documentation Only [facility] [address] [place] [address] Rubens Palafox PA Social History [...] Visit [facility] [address] [place] [address] Gonsalo Antony MD [address] [address] [place] [address] documented as of this encounter Visit Diagnoses Not on filedocumented in this encounter Care Teams Upset Operator Relationship Specialty Start Date End Date Katarina Nails FNP [address], [address] [place] [address] PCP - General 05/07/24 documented as of this encounter
--- OUTSIDE RECORDS SUMMARY | 2024-09-10 12:07 | XMS_ITS | Clinical Summary ---
Author Organization [facility], Address [address] [place] [address] Phone Care Team Providers Care Insurance Claims Processor Name Role Phone Katarina Nails Primary Care Provider [phone] Allergies Active Allergy Reactions Criticality Noted Date [...] MOUTH DAILY DISSOLVE IN WATER BEFORE TAKING, [facility]acy #[id number] 9 Active dicyclomine (BENTYL) 10 MG capsule Take 1 capsule by mouth 2 Active Cholecalciferol (Vitamin D3) 1.25 MG (81626 UT) capsule Take by mouth 8 Active [...] Refill [facility], [address] [place] [address] Gonsalo Antony MD from Last 3 Months Immunizations Name [...] Visit [facility], [address] [place] [address] Gonsalo Antony MD [address] [place] [phone] Health Maintenance Due Date Last Done Comments [...] 05/03/2024, , 06/11/2021, Additional history exists Insurance [facility] MEDICARE Care Teams Insurance Claims Processor Relationship Specialty Start Date End Date Katarina Nails FNP [address] [place] [id number] PCP - General 05/07/24
--- OUTSIDE RECORDS SUMMARY | 2024-09-10 12:07 | XMS_ITS | Encounter Summary ---
Author Organization [facility] Address [address] [place] [address] Phone Care Team Providers Care Eating Disorder Psychologist Name Role Phone Katarina Nails YESSI Primary Care Provider [phone] Encounter Details Date Type Department Care Team (Late st Contact Info) Description 02/29/2024 Documentation Only [facility] [address] [address] [place] [phone] Social History Tobacco Use Types Packs/Day [...] [facility] [address] [place] [address] Gonsalo Antony MD [address] [place] [address] documented as of this encounter Visit Diagnoses Not on filedocumented in this encounter Care Teams Eating Disorder Psychologist Relationship Specialty Start Date End Date Katarina Nails FNP [address], [address] [place] [address] PCP - General 05/07/24 documented as of this encounter
--- OUTSIDE RECORDS SUMMARY | 2024-09-10 12:07 | XMS_ITS | Encounter Summary ---
Author Organization [facility], Address [address] [place] [address] Phone Care Team Providers Care Field Supervisor Seed Production Name Role Phone Katarina Nails YESSI Primary Care Provider [phone] Encounter Details Date Type Department Care Team (Late st Contact Info) Description 03/30/2022 Documentation Only [facility] [address] [place] [address] Rubens Palafox PA Social History [...] [facility] [address] [place] [address] Gonsalo Antony MD [address] [place] [address] documented as of this encounter Visit Diagnoses Not on filedocumented in this encounter Care Teams Field Supervisor Seed Production Relationship Specialty Start Date End Date Katarina Nails FNP [address] [facility] [address] [place] [address] PCP - General 05/07/24 documented as of this encounter
--- OUTSIDE RECORDS SUMMARY | 2024-09-10 12:07 | XMS_ITS ---
Author Name [facility] Organization Unknown Care Team Organization Name Specialty Phone Email Start Date End Da [facility] 10/19/2023 [facility] 10/19/2023
--- OUTSIDE RECORDS SUMMARY | 2024-09-10 12:07 | XMS_ITS | Encounter Summary ---
Author Organization [facility] Address [address] [place] [address] Phone Care Team Providers Care Film Editor Supervisor Name Role Phone Katarina Nails YESSI Primary Care Provider [phone] Encounter Details Date Type Department Care Team (Late st Contact Info) Description 06/07/2023 Documentation Only [facility] [address] [place] [address] Rubens Palafox PA Social History [...] Visit [facility] [address] [place] [address] Gonsalo Antony MD [address] [facility] [place] [address] documented as of this encounter Visit Diagnoses Not on filedocumented in this encounter Care Teams Film Editor Supervisor Relationship Specialty Start Date End Date Katarina Nails FNP [address], [address] [place] [address] PCP - General 05/07/24 documented as of this encounter
--- OUTSIDE RECORDS SUMMARY | 2024-09-10 12:07 | XMS_ITS | Encounter Summary ---
Author Organization [facility] Address [address] [place] [address] Phone Care Team Providers Care Supervisor Evaporator Name Role Phone Katarina Nails YESSI Primary Care Provider [phone] Reason for Visit * Reason Comments Med Change Request Encounter Details Date Type Department Care Team (Late st Contact Info) Description 06/08/2023 Refill [facility] [address] [place] [place] [address] Rubens Palafox PA Social History [...] Visit [facility] [address] [place] [address] Gonsalo Antony MD [address] [facility] [address] [place] [address] documented as of this encounter Visit Diagnoses Not on filedocumented in this encounter Care Teams Supervisor Evaporator Relationship Specialty Start Date End Date Katarina Nails FNP [address], [address] [place] [address] PCP - General 05/07/24 documented as of this encounter
== END 2024-09-10 11:05 | disposition home or self-care (01) ==
LOC: HO.PMC 10:39
PROVIDERS: PCP Nurse Practitioner Family; Visit Provider Nurse Practitioner Family
DX: M47.817 Spondylosis without myelopathy or radiculopathy, lumbosacral region (principal); M54.9 Dorsalgia, unspecified; G89.29 Other chronic pain; R10.9 Unspecified abdominal pain; M53.3 Sacrococcygeal disorders, not elsewhere classified
CPT/HCPCS: 99214

== ENCOUNTER 2024-09-10 11:12 | Outpatient (REF) | payer OTHER, MEDICARE, SELFPAY ==
[2024-09-10 13:58] LABS: HBsAGNum1 0.27 S/CO (0.00-0.99); Hepatitis B Surface Antigen Negative (Negative); ~HepC Num1 0.21 S/CO (0.00-0.79); ~Hepatitis C Antibody Nonreactive (Nonreactive)
[2024-09-10 14:07] LABS: Alanine Aminotransferase 71 U/L (0-31); Albumin Level 4.9 g/dL (3.5-5.0); Alkaline Phosphatase 120 U/L (39-117); Anion Gap 13 (12-20); Aspartate Amino Transferase 66 U/L (5-31); Bilirubin Direct 0.3 mg/dL (0.0-0.5); Bilirubin Total 0.7 mg/dL (0.0-1.0); Blood Urea Nitrogen 23 mg/dL (9-16); Calcium 9.9 mg/dL (8.4-10.2); Carbon Dioxide 24 mmol/L (22-29); Chloride 109 mmol/L (96-108); Cholesterol 227 mg/dL (<200); Estimated Glomerular Filt Rate 53; Glucose Random 104 mg/dL (60-115); HDL Cholesterol 38 mg/dL (>40); LDL Cholesterol Calculated 153 mg/dL (<100); Potassium 4.5 mmol/L (3.3-5.1); Sodium 141 mmol/L (135-145); Total Protein 8.5 g/dL (6.5-8.0); Triglycerides 182 mg/dL (<150)
[2024-09-10 14:08] LABS: Vitamin D 25-OH Total 35.8 ng/mL (>30)
[2024-09-12 08:54] LABS: Hepatitis A Antibody IgG Nonreactive (Nonreactive); Hepatitis A Antibody IgM 0.16 Index (0-0.79); ~Hepatitis A Antibody IgG 0.45 S/CO (0.00-0.99); ~Hepatitis A Antibody IgM Nonreactive (Nonreactive)
== END 2024-09-10 11:13 | disposition home or self-care (01) ==
LOC: HO.10HDL 11:12
PROVIDERS: Visit Provider Nurse Practitioner Family
DX: K75.81 Nonalcoholic steatohepatitis (NASH) (principal)
CPT/HCPCS: 36415; 80048; 80061; 80076; 82306; 86708; 86709; 86803; 87340

== ENCOUNTER 2024-09-25 15:30 | Outpatient (REF) | payer OTHER, MEDICARE, SELFPAY ==
--- OUTSIDE RECORDS SUMMARY | 2024-09-25 18:24 | XMS_ITS | Encounter Summary ---
Author Organization [facility] [place], Address [address] [place] [address] Phone Care Team Providers Care Dependency Counselor Name Role Phone Katarina Nails YESSI Primary Care Provider [phone] Encounter Details Date Type Department Care Team (Late st Contact Info) Description 03/30/2022 Documentation Only [facility] [address] [place] [address] Rubens Palafox PA Social History [...] Visit [facility] [address] [place] [phone] Gonsalo Antony MD [address] [place] [address] documented as of this encounter Visit Diagnoses Not on filedocumented in this encounter Care Teams Dependency Counselor Relationship Specialty Start Date End Date Katarina Nails FNP [address] [facility] [address] [place] [address] PCP - General 05/07/24 documented as of this encounter
--- OUTSIDE RECORDS SUMMARY | 2024-09-25 18:24 | XMS_ITS | Encounter Summary ---
Author Organization [facility] Address [address] [place] [address] Phone Care Team Providers Care Oracle Etl Developer Name Role Phone Katarina Nails YESSI Primary Care Provider [phone] Encounter Details Date Type Department Care Team (Late st Contact Info) Description 03/03/2022 Documentation Only [facility] [address] [place] [address] Rubens Palafox PA Social History [...] Visit [facility] [address] [place] [address] Gonsalo Antony MD [address] [facility] [facility] [address] [place] [address] documented as of this encounter Visit Diagnoses Not on filedocumented in this encounter Care Teams Oracle Etl Developer Relationship Specialty Start Date End Date Katarina Nails FNP [address], [address] [place] [address] PCP - General 05/07/24 documented as of this encounter
--- OUTSIDE RECORDS SUMMARY | 2024-09-25 18:24 | XMS_ITS | Encounter Summary ---
Author Organization [facility] Address [address] [place] [address] Phone Care Team Providers Care Composition Siding Worker Name Role Phone Katarina Nails YESSI Primary Care Provider [phone] Encounter Details Date Type Department Care Team (Late st Contact Info) Description 02/29/2024 Documentation Only [facility] [address] [address] Gilma Jones [address] [place] [phone] Social History Tobacco Use Types Packs/Day [...] Visit [facility] [address] [address] Gonsalo Antony MD [address] [facility] [place] [address] documented as of this encounter Visit Diagnoses Not on filedocumented in this encounter Care Teams Composition Siding Worker Relationship Specialty Start Date End Date Katarina Nails FNP [address], [address] [place] [address] PCP - General 05/07/24 documented as of this encounter
--- OUTSIDE RECORDS SUMMARY | 2024-09-25 18:24 | XMS_ITS | Encounter Summary ---
Author Organization [facility] Address [address] [place] [address] Phone Care Team Providers Care Defensive Fire Control Systems Operator Name Role Phone Katarina Nails EYSSI Primary Care Provider [phone] Encounter Details Date Type Department Care Team (Late st Contact Info) Description 06/07/2023 Documentation Only [facility] [address] [address] Rubens Palafox PA Social History [...] Visit [facility] [address] [place] [address] Gonsalo Antony MD [address] [place] [address] documented as of this encounter Visit Diagnoses Not on filedocumented in this encounter Care Teams Defensive Fire Control Systems Operator Relationship Specialty Start Date End Date Katarina Nails FNP [address], [address] [place] [address] PCP - General 05/07/24 documented as of this encounter
--- OUTSIDE RECORDS SUMMARY | 2024-09-25 18:24 | XMS_ITS | Clinical Summary ---
Author Organization [facility], Address [address] [place] [address] Phone Care Team Providers Care Java Android Developer Name Role Phone Katarina Nails Primary Care Provider [phone] Allergies Active Allergy Reactions Criticality Noted Date [...] MOUTH DAILY DISSOLVE IN WATER BEFORE TAKING, [facility]/pharmacy #[id number] 01/24/2019 Active dicyclomine (BENTYL) 10 MG capsule Take 1 capsule by mouth 01/28/2022 Active Cholecalciferol (Vitamin D3) 1.25 MG (88039 UT) capsule Take by mouth 06/09/2018 Act [...] (one) time each day 90 tablet 3 08/17/2024 08/17/19 26 Active Active Problems Problem Noted Date Diagnosed [...] Refill [facility], [address] [place] [address] Gonsalo Antony MD from Last 3 [...] Visit [facility], [address] [place] [address] Gonsalo Antony MD [address] [place] [address] Health Maintenance Due Date Last Done Comments [...] 05/03/2024, , 06/11/2021, Additional history exists [place] [address] [address] MEDICARE Care Teams Java Android Developer Relationship Specialty Start Date End Date Katarina Nails FNP [address], [address] [place] [address] PCP - General 05/07/24
--- OUTSIDE RECORDS SUMMARY | 2024-09-25 18:24 | XMS_ITS | Encounter Summary ---
Author Organization [facility] Address [address] [place] [address] Phone Care Team Providers Care Landfill Gas Plant Field Technician Name Role Phone Katarina Nails YESSI Primary Care Provider [phone] Reason for Visit * Reason Comments Med Change Request Encounter Details Date Type Department Care Team (Late st Contact Info) Description 06/08/2023 Refill [facility] [address] [place] [address] Rubens Palafox PA Social History [...] Visit [facility] [address] [place] [address] Gonsalo Antony MD [address] [place] [address] documented as of this encounter Visit Diagnoses Not on filedocumented in this encounter Care Teams Landfill Gas Plant Field Technician Relationship Specialty Start Date End Date Katarina Nails FNP [address], [address] [place] [address] PCP - General 05/07/24 documented as of this encounter
== END 2024-09-25 15:31 | disposition home or self-care (01) ==
LOC: HO.HOSX 15:30
PROVIDERS: Visit Provider Physician Assistant
DX: Z13.89 Encounter for screening for other disorder (principal)

== ENCOUNTER 2024-10-12 08:53 | Outpatient (REF) | payer OTHER, MEDICARE, SELFPAY ==
--- NOTE | ~2024-10-12 | XR_ITS ---
CLINICAL HISTORY: M25.569 - Pain in unspecified knee 5 view bilateral knee Comparison: None Findings: Bones intact. No dislocations. Bilateral osteoarthritis most pronounced in the medial compartments. No joint effusion. No radiopaque foreign body. IMPRESSION: 1. No acute findings. This document has been electronically signed by: Bret Angeles MD on 10/13/2024 08:54:52
== END 2024-10-12 08:54 | disposition home or self-care (01) ==
LOC: HO.HOSX 08:53
PROVIDERS: PCP Nurse Practitioner Family; Visit Provider Physician Assistant
DX: M25.561 Pain in right knee (principal); M17.0 Bilateral primary osteoarthritis of knee; M25.562 Pain in left knee
CPT/HCPCS: 20610; 73562; J1010; J2003

== ENCOUNTER 2024-10-12 08:53 | Outpatient (AMB) | payer OTHER, MEDICARE, SELFPAY ==
--- NOTE | 2024-10-12 09:10 | MHC.OFFVIS ---
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 Patient was referred by Pain Management. Patient reports ongoing pain for about 6 months. She states that her pain is worse in the right knee than the left knee. Her pain is worse when she is bending, walking, going up and down the stairs. Patient has tried major with relief IMPRESSION: Moderate to marked degenerative changes in the bilateral medial compartments. Allergies coconut Allergy (Verified 10/12/24 09:15) Rash Penicillins Allergy (Verified 10/12/24 09:14) Hives latex Adverse Reaction (Verified 10/12/24 09:14) Unknown seroquil Allergy (Uncoded 08/06/24 13:37) Seizure HPI HPI WIRELESS CELLULAR TECHNICIAN-B/L knee pain: Details: Ms. Eduardo is a 64 year old female who presents with Enrike and son today for evaluation of bilateral knee pain. Patient was referred by Pain Management and currently is treating with them for chronic back pain. Patient reports ongoing pain for about 6 months. She states that her pain is worse in the right knee than the left knee. Her pain is worse when she is bending, walking, going up and down the stairs. 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 COPD (chronic obstructive pulmonary disease) Surgical History Hx of cholecystectomy H/O parathyroidectomy History of pancreatectomy S/P partial hysterectomy H/O hernia repair Hx of appendectomy Family History Sister Ovarian cancer Mother Skin cancer Social History (Updated 10/12/24 @ 09:15 by Josiah Tanner) Alcohol intake: never Patient Tobacco Use Status: Never used Tobacco Current occupational status: disabled Review of Systems Const All systems reviewed & are unremarkable except as noted in HPI and below Physical Exam Vital Signs: BMI result Body Mass Index 35.2 Const General: cooperative, healthy appearing and no acute distress Resp Effort & Inspection: normal respiratory effort and able to speak in complete sentences Cardio Rate: regular rate Peripheral pulses: Peripheral pulses 2+ throughout Skin Lesions: no lesions Rashes: no rashes Extrem Other: Bilateral knees normal to inspection no ecchymosis erythema or joint effusion. Full range of motion with crepitus. Uses a Rollator walker to assist with ambulation. NVI. Office Procedures AMB Joint Injection/Aspiration Joint Injection/Aspiration Primary Site: right knee Prep: site was prepped using aseptic technique, ethochloride spray was applied and injection warnings given Injected: 80 mg of, DepoMedrol, with 8 mL of (2% plain lidocaine) and in the joint Approach Used: anterolateral Procedure: The patient tolerated the procedure well, but had some pain with the injection and there was some relief with the local anesthesia Coding 79554 - Large joint Procedure code (CPT) selection complete Assessment & Plan Assessment & Plan (1) Osteoarthritis of knees, bilateral: Code(s): M17.0 - Bilateral primary osteoarthritis of knee Category: Medical Plan Ms. Eduardo is a 64 year old female who presents with Enrike and son today for evaluation of bilateral knee pain. Patient was referred by Pain Management and currently is treating with them for chronic back pain. Patient reports ongoing pain for about 6 months. She states that her pain is worse in the right knee than the left knee. Her pain is worse when she is bending, walking, going up and down the stairs. She reports that the right knee is worse than the left. The patient was offered a cortisone injection in the right knee with 80 mg of DepoMedrol. The patient was explained the risks, benefits, and alternatives to receiving this injection. After receiving consent for the injection, the patient had the procedure done while in the office today. The patient tolerated the procedure well with no complications. Patient will 1st try the cortisone injection of the right knee and should she have good relief she will follow up with injection for the left knee. Follow-up will be p.r.n., or sooner if needed X-rays of the bilateral knees which were obtained while in the office today and were reviewed by me, Anahi Dykes PA-C, revealed moderate osteoarthritis bilateral knees. Coding Level of Care Code New Pt Level 3 (31015) Diagnoses Osteoarthritis of knees, bilateral M17.0 CPT Codes Coding - 28573 Large joint: 56647 - Large joint ([id number])
[2024-10-12 09:16] VITALS: BMI 35.2
--- OUTSIDE RECORDS SUMMARY | 2024-10-12 09:16 | XMS_ITS | Encounter Summary ---
Author Organization [facility] Address [address] [place] [address] Phone Care Team Providers Care Occupational Therapy Aides Teacher Name Role Phone Katarina Nails YESSI Primary Care Provider [phone] Encounter Details Date Type Department Care Team (Late st Contact Info) Description 02/29/2024 Documentation Only [facility] [address] [place] [address] [address]ma Jones [address] [place] [address] Social History Tobacco Use Types Packs/Day [...] Visit [facility] [address] [place] [address] Gonsalo Antony MD [address] [place] [phone] documented as of this encounter Visit Diagnoses Not on filedocumented in this encounter Care Teams Occupational Therapy Aides Teacher Relationship Specialty Start Date End Date Katarina Nails FNP [address], [address] [place] [address] PCP - General 05/07/24 documented as of this encounter
--- OUTSIDE RECORDS SUMMARY | 2024-10-12 09:16 | XMS_ITS | Encounter Summary ---
Author Organization [facility] Address [address] [place] [address] Phone Care Team Providers Care Crop And Soil Scientist Name Role Phone Katarina Nails YESSI Primary Care Provider Encounter Details Date Type Department Care Team (Late st Contact Info) Description 06/07/2023 Documentation Only [facility] [address] [place] [address] Rubens Palafox PA Social History [...] Visit [facility] [address] [place] [address] Gonsalo Antony MD [address] [place] [address] documented as of this encounter Visit Diagnoses Not on filedocumented in this encounter Care Teams Crop And Soil Scientist Relationship Specialty Start Date End Date Katarina Nails FNP [address], [address] [place] [address] PCP - General 05/07/24 documented as of this encounter
--- OUTSIDE RECORDS SUMMARY | 2024-10-12 09:16 | XMS_ITS | Encounter Summary ---
Author Organization [facility] [place], Address [address] [place] [address] Phone Care Team Providers Care School Age Teacher Name Role Phone Katarina Nails YESSI Primary Care Provider [phone] Encounter Details Date Type Department Care Team (Late st Contact Info) Description 03/30/2022 Documentation Only [facility] [address] [place] [address] Rubens Palafox PA Social History [...] Visit [facility] [address] [place] [phone] Gonsalo Antony MD [address] [place] [address] documented as of this encounter Visit Diagnoses Not on filedocumented in this encounter Care Teams School Age Teacher Relationship Specialty Start Date End Date Katarina Nails FNP [address] [facility] [address] [place] [address] PCP - General 05/07/24 documented as of this encounter
--- OUTSIDE RECORDS SUMMARY | 2024-10-12 09:16 | XMS_ITS | Encounter Summary ---
Author Organization [facility] Address [address] [place] [address] Phone Care Team Providers Care Drier Belt Conveyor Name Role Phone Katarina Nails YESSI Primary Care Provider [phone] Encounter Details Date Type Department Care Team (Late st Contact Info) Description 03/03/2022 Documentation Only [facility] [address] [place] [address] Rubens Palafox PA Social History [...] Visit [facility] [address] [place] [address] Gonsalo Antony MD [address] [place] [address] documented as of this encounter Visit Diagnoses Not on filedocumented in this encounter Care Teams Drier Belt Conveyor Relationship Specialty Start Date End Date Katarina Nails FNP [address], [address] [place] [address] PCP - General 05/07/24 documented as of this encounter
--- OUTSIDE RECORDS SUMMARY | 2024-10-12 09:16 | XMS_ITS | Encounter Summary ---
Author Organization [facility] Address [address] [place] [address] Phone Care Team Providers Care Head Butler Name Role Phone Katarina Nails YESSI Primary Care Provider [phone] Reason for Visit * Reason Comments Med Change Request Encounter Details Date Type Department Care Team (Late st Contact Info) Description 06/08/2023 Refill [facility] [address] [place] [address] Rubens Palafox PA Social History [...] Visit [facility] [address] [place] [address] Gonsalo Antony MD [address] [place] [address] documented as of this encounter Visit Diagnoses Not on filedocumented in this encounter Care Teams Head Butler Relationship Specialty Start Date End Date Katarina Nails FNP [address], [address] [place] [address] PCP - General 05/07/24 documented as of this encounter
--- OUTSIDE RECORDS SUMMARY | 2024-10-12 09:16 | XMS_ITS | Clinical Summary ---
Author Organization [facility] [place], Address [address] [place] [place] [address] Phone Care Team Providers Care Study Manager Name Role Phone Katarina Nails Primary Care Provider [phone] Allergies Active Allergy Reactions Criticality Noted Date [...] MOUTH DAILY DISSOLVE IN WATER BEFORE TAKING, [facility]/pharmacy #[id number] 01/24/2019 Active dicyclomine (BENTYL) 10 MG capsule Take 1 capsule by mouth 01/28/2022 Active Cholecalciferol (Vitamin D3) 1.25 MG (47761 UT) capsule Take by mouth 06/09/2018 Act [...] Refill [facility] [place], [address] [place] [address] Gonsalo Antony MD from Last 3 Months Immunizations Immunization Administration Dates Next Due Influenza Whole 06/22/2017 [...] Visit [facility] [place], [address] [place] [address] Gonsalo Antony MD [address] [place] [address] Health Maintenance Due Date Last Done Comments Breast Cancer Screening 1962 Pneumococcal Vaccine: 50+ Ye ars (1 of 2 - PCV) 1981 Colorectal Cancer Screening: Annual FOBT 2011 Colorectal Cancer Screening: Colonoscopy 2011 Colorectal Cancer Screening: Sigmoidoscopy 2011 Hepatitis B Vaccine (1 of 3 - Risk 3-dose series) 2022 Influenza Vaccine Completed 05/03/2024, , 06/11/2021, Additional history [place] [address] Medicare Care Teams Study Manager Relationship Specialty Start Date End Date Katarina Nails FNP [address], [address] [place] [address] PCP - General 05/07/24
== END 2024-10-12 09:45 | disposition home or self-care (01) ==
LOC: HO.HOS 08:53
PROVIDERS: PCP Nurse Practitioner Family; Visit Provider Physician Assistant
DX: M17.0 Bilateral primary osteoarthritis of knee (principal)
CPT/HCPCS: 20610; 99203

== ENCOUNTER → 2024-10-12 08:59 | Outpatient (BNV) | payer OTHER, MEDICARE, SELFPAY | PROVIDERS: PCP Nurse Practitioner Family; Visit Provider Specialist | DX: M25.561 Pain in right knee (principal); M25.562 Pain in left knee | CPT/HCPCS: 73562 ==

== ENCOUNTER 2024-10-17 12:27 | Outpatient (AMB) | payer OTHER, MEDICARE, SELFPAY ==
--- NOTE | 2024-10-17 12:31 | A.OFFVIS_ITS ---
Vital Signs 10/17/24 12:34 Height 5 ft Weight 178 lb 9.191 oz BMI 34.9 BP 127/69 Blood Pressure Location Lt brachial Position Sitting Pulse 72 Intake Visit Reasons: GARCIA Intake Note: Latricia presents in the office as a new patient for GARCIA. CC: Stomach pains, constipation and diarrhea, more so constipation and pains in the RUQ but they are all over. 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 Prev seen by Lloyd Carr at [facility] and Josiah Rodriguez at [facility]. Pt accompanied by son and . Main CC is episodic severe abd pain for which she has already had extensive w/up done based on records reviewed from these three providers. Referral reason is fatty liver and ? cirrhosis. Most of the visit was spent disspelling concerns for chronic hepatitis-C, cirrhosis, in need for EGD Q 6 monthly. Reviewed with the patient and her family, that so far, no evidence of chronic hepatitis-C. Her hep C antibodies negative, this typically remains positive even if hep C is treated. In addition, despite a previous report of F4 Elastography 2021 from [facility] shows liver stiffness 12.8 kilopascal-that is suggestive of compensated chronic liver disease but need further test for confirmation. The cut off is greater than 13 for severe liver fibrosis/liver cirrhosis. She does have pos HB core Ab in one of the many testing she has had done. To note- pt also follows with pulm for COPD per her report. Advised to review A1AT deficiency results with the wash oil pump operator helper Dr Rosales as well. Pt follows with pain management for non-luminal intermittent episodic abd pain. Last colo 2020 - good prep. No polyps (Dr Priest) random colo bx negative. 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 COPD (chronic obstructive pulmonary disease) Surgical History Hx of cholecystectomy H/O parathyroidectomy History of pancreatectomy S/P partial hysterectomy H/O hernia repair Hx of appendectomy Family History Sister Ovarian cancer Mother Skin cancer Social History (Updated 10/12/24 @ 09:15 by Josiah Tanner) Alcohol intake: never Patient Tobacco Use Status: Never used Tobacco Current occupational status: disabled Review of Systems Const All systems reviewed & are unremarkable except as noted in HPI and below Physical Exam Vital Signs: Last Vital Signs Pulse 72 10/17/24 12:34 BP 127/69 10/17/24 12:34 BMI result Body Mass Index 34.9 No apparent distress with obesity Nonicteric Abdomen soft, nondistended , tenderness to light palpation diffusely without guarding Alert and oriented x3, normal gait Assessment & Plan Assessment & Plan (1) Chronic liver disease: Code(s): K76.9 - Liver disease, unspecified Category: Medical (2) Elevated alkaline phosphatase level: Code(s): R74.8 - Abnormal levels of other serum enzymes Category: Medical (3) Obesity: Code(s): E66.9 - Obesity, unspecified Category: Medical (4) Colon cancer screening: Code(s): Z12.11 - Encounter for screening for malignant neoplasm of colon Category: Medical (5) Hepatitis B core antibody positive: Code(s): R76.8 - Other specified abnormal immunological findings in serum Category: Medical Plan 1. Chronic liver disease As above, extensively reviewed with the patient and her family, that at this time, no evidence of chronic hep C leading to liver disease. There is also very little evidence to suggest liver cirrhosis. Likely has advanced fibrosis. However, we will repeat blood work as well as imaging to guide this further. Given prev report of Hbcore Ab and A1At def, will recheck these as well. Pt also has predominantly elevated alk phos, which again is congruent with MASLD however, will check autoimmune hepatitis, and PBC labs. MR abdomen liver protocol also ordered to rule out bile duct stricturing as well as to assess for steatosis. Plan: -labs as below -MRI liver protocol 2. Colorectal cancer screening Last colonoscopy 2020. Patient and family made aware, that will not be due for another colonoscopy till 2030. Follow up 3 months 70 mins were spent reviewing records from [facility] and PCP office, in addition to 25 mins face to face encounter with the pt, total of 95 mins spent. Orders: Orders Prothrombin Time INR Today K76.9 - Liver disease, unspecified Comprehensive Met. Panel Today K76.9 - Liver disease, unspecified Alpha-1 Antitrypsin Phenotype Today K76.9 - Liver disease, unspecified MR abdomen wo/w con Today K76.9 - Liver disease, unspecified Hepatitis B Surface Antibody Today K76.9 - Liver disease, unspecified Hepatitis B Surface Antigen Today K76.9 - Liver disease, unspecified Alanine Aminotransferase Today R74.8 - Abnormal levels of other serum enzymes Gamma Glutamyl Transpeptidase Today R74.8 - Abnormal levels of other serum enzymes Liver Kidney Microsomal Ab Today R74.8 - Abnormal levels of other serum enzymes Smooth Muscle Antibody Today R74.8 - Abnormal levels of other serum enzymes Complete Blood Count no Diff Today K76.9 - Liver disease, unspecified Alpha 1 Anti-trypsin Today K76.9 - Liver disease, unspecified Hepatitis B Core Antibody Today K76.9 - Liver disease, unspecified Mitochondrial Antibody Today R74.8 - Abnormal levels of other serum enzymes Alkaline Phosphatase Isoenzyme Today R74.8 - Abnormal levels of other serum enzymes Coding Level of Care Code New Pt Level 5 (65053) Complex EM visit Add On G2211 Diagnoses Chronic liver disease K76.9 Elevated alkaline phosphatase level R74.8 Obesity E66.9 Colon cancer screening Z12.11 Hepatitis B core antibody positive R76.8
[2024-10-17 12:34] VITALS: BP 127/69; PULSE 72; BMI 34.9
--- OUTSIDE RECORDS SUMMARY | 2024-10-17 14:41 | XMS_ITS | Encounter Summary ---
Author Organization [facility] Address [address] [place] [address] Phone Care Team Providers Care Supply Chain Procurement Manager Name Role Phone Katarina Nails YESSI Primary Care Provider [phone] Encounter Details Date Type Department Care Team (Late st Contact Info) Description 06/07/2023 Documentation Only [facility] [address] [place] [address] Rubens Palafox PA Social History [...] Visit [facility] [address] [address] Gonsalo Antony MD [address] [place] [address] documented as of this encounter Visit Diagnoses Not on filedocumented in this encounter Care Teams Supply Chain Procurement Manager Relationship Specialty Start Date End Date Katarina Nails FNP [address], [address] [place] [address] PCP - General 05/07/24 documented as of this encounter
--- OUTSIDE RECORDS SUMMARY | 2024-10-17 14:41 | XMS_ITS | Encounter Summary ---
Author Organization [facility] Address [address] [place] [address] Phone Care Team Providers Care Environmental Services Attendant Name Role Phone Katarina Nails YESSI Primary Care Provider [phone] Encounter Details Date Type Department Care Team (Late st Contact Info) Description 03/03/2022 Documentation Only [facility] [address] [place] [address] Rubens Palafox PA Social History [...] Visit [facility] [address] [place] [address] Gonsalo Antony MD [address] [place] [address] documented as of this encounter Visit Diagnoses Not on filedocumented in this encounter Care Teams Environmental Services Attendant Relationship Specialty Start Date End Date Katarina Nails FNP [address], [address] [place] [address] PCP - General 05/07/24 documented as of this encounter
--- OUTSIDE RECORDS SUMMARY | 2024-10-17 14:41 | XMS_ITS | Encounter Summary ---
Author Organization [facility] Address [address] [place] [address] Phone Care Team Providers Care Rubber Turner Name Role Phone Katarina Nails YESSI Primary Care Provider [phone] Reason for Visit * Reason Comments Med Change Request Encounter Details Date Type Department Care Team (Late st Contact Info) Description 06/08/2023 Refill [facility] [address] [place] [address] Rubens Palafox PA Social History [...] Visit [facility] [address] [place] [address] Gonsalo Antony MD [address] [place] [address] documented as of this encounter Visit Diagnoses Not on filedocumented in this encounter Care Teams Rubber Turner Relationship Specialty Start Date End Date Katarina Nails FNP [address], [address] [place] [address] PCP - General 05/07/24 documented as of this encounter
--- OUTSIDE RECORDS SUMMARY | 2024-10-17 14:41 | XMS_ITS | Encounter Summary ---
Author Organization [facility] Address [address] [place] [address] Phone Care Team Providers Care Flow Nurse Name Role Phone Katarina Nails YESSI Primary Care Provider Encounter Details Date Type Department Care Team (Late st Contact Info) Description 02/29/2024 Documentation Only [facility] [address] [place] [address] [address]ma Jones [address] [place] [phone] Social History Tobacco Use Types Packs/Day [...] [facility] [address] [place] [address] Gonsalo Antony MD [address] [place] [address] documented as of this encounter Visit Diagnoses Not on filedocumented in this encounter Care Teams Flow Nurse Relationship Specialty Start Date End Date Katarina Nails FNP [address], [address] [place] [address] PCP - General 05/07/24 documented as of this encounter
--- OUTSIDE RECORDS SUMMARY | 2024-10-17 14:41 | XMS_ITS | Clinical Summary ---
Author Organization [facility] [place], Address [address] [address] Phone Care Team Providers Care Oil Pipeline Dispatcher Name Role Phone Katarina Nails Primary Care Provider [phone] Allergies Active Allergy Reactions Criticality Noted Date [...] MOUTH DAILY DISSOLVE IN WATER BEFORE TAKING, [facility]/pharmacy #[id number] 01/24/2019 Active dicyclomine (BENTYL) 10 MG capsule Take 1 capsule by mouth 01/28/2022 Active Cholecalciferol (Vitamin D3) 1.25 MG (42937 UT) capsule Take by mouth 06/09/2018 Act [...] Refill [facility] [place], [address] [place] [address] Gonsalo Antony MD from Last 3 [...] Visit [facility] [place], [address] [place] [address] Gonsalo Antony MD [...] 05/03/2024, , 06/11/2021, Additional history [place] [address] Medicare Care Teams Oil Pipeline Dispatcher Relationship Specialty Start Date End Date Katarina Nails FNP [address], [address] [place] [address] PCP - General 05/07/24
--- OUTSIDE RECORDS SUMMARY | 2024-10-17 14:41 | XMS_ITS | Encounter Summary ---
Author Organization [facility] [place], Address [address] [place] [address] Phone Care Team Providers Care Health Support Specialist Name Role Phone Katarina Nails YESSI Primary Care Provider Encounter Details Date Type Department Care Team (Late st Contact Info) Description 03/30/2022 Documentation Only [facility] [address] [place] [address] Rubens Palafox PA Social History [...] Visit [facility] [address] [place] [address] Gonsalo Antony MD [address] [place] [address] documented as of this encounter Visit Diagnoses Not on filedocumented in this encounter Care Teams Health Support Specialist Relationship Specialty Start Date End Date Katarina Nails FNP [address] [facility] [address] [place] [address] PCP - General 05/07/24 documented as of this encounter
== END 2024-10-17 13:36 | disposition home or self-care (01) ==
LOC: HO.HGI 12:28
PROVIDERS: PCP Nurse Practitioner Family; Visit Provider Internal Medicine
DX: K76.9 Liver disease, unspecified (principal); R74.8 Abnormal levels of other serum enzymes; R76.8 Other specified abnormal immunological findings in serum
CPT/HCPCS: 99204

== ENCOUNTER 2024-10-17 12:27 | Outpatient (REF) | payer OTHER, MEDICARE, SELFPAY ==
--- OUTSIDE RECORDS SUMMARY | 2024-10-17 16:23 | XMS_ITS | Encounter Summary ---
Author Organization [facility] Address [address] [place] [address] Phone Care Team Providers Care Electrical Designer Drafter Name Role Phone Katarina Nails YESSI Primary Care Provider Encounter Details Date Type Department Care Team (Late st Contact Info) Description 06/07/2023 Documentation Only [facility] [address] [place] [address] Rubens Palafox PA Social History [...] Visit [facility] [address] [place] [address] Gonsalo Antony MD [address] [place] [address] documented as of this encounter Visit Diagnoses Not on filedocumented in this encounter Care Teams Electrical Designer Drafter Relationship Specialty Start Date End Date Katarina Nails FNP [address], [address] [place] [address] PCP - General 05/07/24 documented as of this encounter
--- OUTSIDE RECORDS SUMMARY | 2024-10-17 16:23 | XMS_ITS | Encounter Summary ---
Author Organization [facility] Address [address] [place] [address] Phone Care Team Providers Care Pododermatologist Name Role Phone Katarina Nails YESSI Primary Care Provider [phone] Encounter Details Date Type Department Care Team (Late st Contact Info) Description 02/29/2024 Documentation Only [facility] [address] [place] [address] Gilma Jones [address] [place] [phone] Social History Tobacco Use Types Packs/Day [...] Visit [facility] [address] [place] [address] Gonsalo Antony MD [address] [place] [address] documented as of this encounter Visit Diagnoses Not on filedocumented in this encounter Care Teams Pododermatologist Relationship Specialty Start Date End Date Katarina Nails FNP [address], [address] [place] [address] PCP - General 05/07/24 documented as of this encounter
--- OUTSIDE RECORDS SUMMARY | 2024-10-17 16:23 | XMS_ITS | Encounter Summary ---
Author Organization [facility] Address [address] [place] [address] Phone Care Team Providers Care Information Security Specialist Name Role Phone Katarina Nails YESSI Primary Care Provider [phone] Encounter Details Date Type Department Care Team (Late st Contact Info) Description 03/03/2022 Documentation Only [facility] [address] [place] [address] Rubens Palafox PA Social History [...] Visit [facility] [address] [place] [address] Gonsalo Antony MD [address] [place] [address] documented as of this encounter Visit Diagnoses Not on filedocumented in this encounter Care Teams Information Security Specialist Relationship Specialty Start Date End Date Katarina Nails FNP [address], [address] [place] [address] PCP - General 05/07/24 documented as of this encounter
--- OUTSIDE RECORDS SUMMARY | 2024-10-17 16:23 | XMS_ITS | Clinical Summary ---
Author Organization [facility] [place], Address [address] [place] [address] Phone Care Team Providers Care Farmhand Name Role Phone Katarina Nails Primary Care Provider [phone] Allergies Active Allergy Reactions Criticality Noted Date [...] MOUTH DAILY DISSOLVE IN WATER BEFORE TAKING, [facility]/pharmacy #[id number] 01/24/2019 Active dicyclomine (BENTYL) 10 MG capsule Take 1 capsule by mouth 01/28/2022 Active Cholecalciferol (Vitamin D3) 1.25 MG (47063 UT) capsule Take by mouth 06/09/2018 Act [...] Refill [facility] [place], [address] [place] [address] Gonsalo Antony MD from Last 3 [...] Visit [facility] [place], [address] [place] [address] Gonsalo Antony MD [address] [place] [address] [...] 05/03/2024, , 06/11/2021, Additional history [place] [address] Medicare Care Teams Farmhand Relationship Specialty Start Date End Date Katarina Nails FNP [address], [address] [place] [address] PCP - General 05/07/24
--- OUTSIDE RECORDS SUMMARY | 2024-10-17 16:23 | XMS_ITS | Encounter Summary ---
Author Organization [facility] [place], Address [address] [place] [address] Phone Care Team Providers Care Foreign Legal Consultant Name Role Phone Katarina Nails YESSI Primary Care Provider [phone] Encounter Details Date Type Department Care Team (Late st Contact Info) Description 03/30/2022 Documentation Only [facility] [address] [place] [address] Rubens Palafox PA Social History [...] Visit [facility] [address] [place] [address] Gonsalo Antony MD [address] [place] [address] documented as of this encounter Visit Diagnoses Not on filedocumented in this encounter Care Teams Foreign Legal Consultant Relationship Specialty Start Date End Date Katarina Nails FNP [address] [facility] [address] [place] [address] PCP - General 05/07/24 documented as of this encounter
--- OUTSIDE RECORDS SUMMARY | 2024-10-17 16:23 | XMS_ITS | Encounter Summary ---
Author Organization [facility] Address [address] [place] [address] Phone Care Team Providers Care County Agent Name Role Phone Katarina Nails YESSI Primary Care Provider [phone] Reason for Visit * Reason Comments Med Change Request Encounter Details Date Type Department Care Team (Late st Contact Info) Description 06/08/2023 Refill [facility] [address] [place] [address] Rubens Palafox PA Social History [...] Visit [facility] [address] [place] [address] Gonsalo Antony MD [address] [place] [address] documented as of this encounter Visit Diagnoses Not on filedocumented in this encounter Care Teams County Agent Relationship Specialty Start Date End Date Katarina Nails FNP [address], [address] [place] [address] PCP - General 05/07/24 documented as of this encounter
[2024-10-18 03:59] LABS: HBc Num1 0.29 S/CO (0.00-0.79); HBsAGNum1 0.34 S/CO (0.00-0.99); Hepatitis B Core Antibody Nonreactive (Nonreactive); Hepatitis B Surface Antigen Negative (Negative); ~Hepatitis B Surface Antibody NONREACTIVE (Nonreactive)
[2024-10-18 04:23] LABS: Hepatitis A Antibody IgM 0.13 Index (0-0.79); ~Hepatitis A Antibody IgM Nonreactive (Nonreactive)
[2024-10-19 15:49] LABS: HCV Log PCR <1.18 NOT DETECTED Log IU/mL (NOT DETECTED); HepC Viral Load <15 NOT DETECTED IU/mL (NOT DETECTED)
== END 2024-10-17 12:28 | disposition home or self-care (01) ==
LOC: HO.LAB 12:27
PROVIDERS: PCP Nurse Practitioner Family; Visit Provider Internal Medicine
DX: K74.60 Unspecified cirrhosis of liver (principal)
CPT/HCPCS: 36415; 86704; 86706; 86709; 87340; 87522

== ENCOUNTER 2024-10-18 06:16 | Outpatient (REF) | payer OTHER, MEDICARE, SELFPAY ==
--- NOTE | ~2024-10-18 | FL_ITS ---
EXAMINATION: FL GUIDANCE ONLY HISTORY: M47.817 - Spondylosis without myelopathy or radiculopathy, lumbosacral... COMPARISON: None available. TECHNIQUE: Fluoroscopy time: 0.1 minutes. Cumulative Dose: 1.85 mGy. DAP: 0.0170 mGym2 Images: 2. FINDINGS: Images demonstrate needles and contrast material in the regions of the bilateral L3-4, L4-5, and L5-S1 facet joints. FL/FL guidance in treatment room IMPRESSION: Fluoroscopy during procedure. Please see procedure report for additional information. Electronically signed by: Ignacio Carlos MD 10/19/2024 11:15 AM EDT
--- OUTSIDE RECORDS SUMMARY | 2024-10-18 06:20 | XMS_ITS | Clinical Summary ---
Author Organization [facility] [place], Address [address] [address] Phone Care Team Providers Care Design Engineer Marine Equipment Name Role Phone Katarina Nails Primary Care Provider [phone] Allergies Active Allergy Reactions Criticality Noted Date [...] MOUTH DAILY DISSOLVE IN WATER BEFORE TAKING, [facility]/pharmacy #[id number] 01/24/2019 Active dicyclomine (BENTYL) 10 MG capsule Take 1 capsule by mouth 01/28/2022 Active Cholecalciferol (Vitamin D3) 1.25 MG (71530 UT) capsule Take by mouth 06/09/2018 Act [...] Refill [facility] [place], [address] [place] [address] Gonsalo Antony MD from Last 3 [...] Visit [facility] [place], [address] [place] [address] Gonsalo Antony MD [address] [place] [address] Health [...] 05/03/2024, , 06/11/2021, Additional history [place] [address] Medicare Care Teams Design Engineer Marine Equipment Relationship Specialty Start Date End Date Katarina Nails FNP [address], [address] [place] [address] PCP - General 05/07/24
--- OUTSIDE RECORDS SUMMARY | 2024-10-18 06:20 | XMS_ITS | Encounter Summary ---
Author Organization [facility] [place], Address [address] [place] [address] Phone Care Team Providers Care Classroom Instructional Aide Name Role Phone Katarina Nails YESSI Primary Care Provider [phone] Encounter Details Date Type Department Care Team (Late st Contact Info) Description 03/30/2022 Documentation Only [facility] [address] [place] [address] Rubens Palafox PA Social History [...] Services Of [facility] [address] [place] [address] Gonsalo Antony MD [address] [place] [address] documented as of this encounter Visit Diagnoses Not on filedocumented in this encounter Care Teams Classroom Instructional Aide Relationship Specialty Start Date End Date Katarina Nails FNP [address] [facility] [address] [place] [address] PCP - General 05/07/24 documented as of this encounter
--- OUTSIDE RECORDS SUMMARY | 2024-10-18 06:20 | XMS_ITS | Encounter Summary ---
Author Organization [facility] Address [address] [place] [address] Phone Care Team Providers Care Meat Process Worker Name Role Phone Katarina Nails YESSI Primary Care Provider [phone] Encounter Details Date Type Department Care Team (Late st Contact Info) Description 02/29/2024 Documentation Only [facility] [address] [place] [address] Gilma Jones [address] [place] [address] Social History Tobacco Use Types Packs/Day [...] Visit [facility] [address] [place] [address] Gonsalo Antony MD [address] [place] [address] documented as of this encounter Visit Diagnoses Not on filedocumented in this encounter Care Teams Meat Process Worker Relationship Specialty Start Date End Date Katarina Nails FNP [address], [address] [place] [address] PCP - General 05/07/24 documented as of this encounter
--- OUTSIDE RECORDS SUMMARY | 2024-10-18 06:20 | XMS_ITS | Encounter Summary ---
Author Organization [facility] Address [address] [place] [address] Phone Care Team Providers Care Title Assistant Name Role Phone Katarina Nails YESSI Primary Care Provider [phone] Encounter Details Date Type Department Care Team (Late st Contact Info) Description 06/07/2023 Documentation Only [facility] [address] [place] [address] Rubens Palafox PA Social History [...] Visit [facility] [address] [place] [address] Gonsalo Antony MD [address] [place] [address] documented as of this encounter Visit Diagnoses Not on filedocumented in this encounter Care Teams Title Assistant Relationship Specialty Start Date End Date Katarina Nails FNP [address], [address] [place] [address] PCP - General 05/07/24 documented as of this encounter
--- OUTSIDE RECORDS SUMMARY | 2024-10-18 06:20 | XMS_ITS | Encounter Summary ---
Author Organization [facility] Address [address] [place] [address] Phone Care Team Providers Care Rvda Master Certified Rv Technician Name Role Phone Katarina Nails YESSI Primary Care Provider [phone] Reason for Visit * Reason Comments Med Change Request Encounter Details Date Type Department Care Team (Late st Contact Info) Description 06/08/2023 Refill [facility] [address] [place] [address] Rubens Palafox PA Social History [...] Visit [facility] [address] [place] [address] Gonsalo Antony MD [address] [facility] [place] [address] documented as of this encounter Visit Diagnoses Not on filedocumented in this encounter Care Teams Rvda Master Certified Rv Technician Relationship Specialty Start Date End Date Katarina Nails FNP [address], [address] [place] [address] PCP - General 05/07/24 documented as of this encounter
--- OUTSIDE RECORDS SUMMARY | 2024-10-18 06:21 | XMS_ITS | Encounter Summary ---
Author Organization [facility] Address [address] [place] [address] Phone Care Team Providers Care Die Cleaner Name Role Phone Katarina Nails YESSI Primary Care Provider [phone] Encounter Details Date Type Department Care Team (Late st Contact Info) Description 03/03/2022 Documentation Only [facility] [address] [place] [address] Rubens Palafox PA Social History [...] Visit [facility] [address] [place] [address] Gonsalo Antony MD [address] [place] [address] documented as of this encounter Visit Diagnoses Not on filedocumented in this encounter Care Teams Die Cleaner Relationship Specialty Start Date End Date Katarina Nails FNP [address], [address] [place] [address] PCP - General 05/07/24 documented as of this encounter
== END 2024-10-18 06:17 | disposition home or self-care (01) ==
LOC: CF 06:16
PROVIDERS: Visit Provider Internal Medicine
DX: M47.817 Spondylosis without myelopathy or radiculopathy, lumbosacral region (principal); G89.29 Other chronic pain
CPT/HCPCS: 64493; 64494; J2003; J2795; Q9967

== ENCOUNTER 2024-10-18 10:28 | Outpatient (AMB) | payer OTHER, MEDICARE, SELFPAY ==
[2024-10-18 10:36] VITALS: BP 120/92; PULSE 73; RESP 16; O2SAT 96
--- NOTE | 2024-10-18 10:36 | A.OFFVIS_ITS ---
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 Supervisor Soakers Required: No Allergies coconut Allergy (Verified 10/18/24 10:37) Rash Penicillins Allergy (Verified 10/18/24 10:37) Hives latex Adverse Reaction (Verified 10/18/24 10:37) Unknown seroquil Allergy (Uncoded 10/18/24 10:37) Seizure Medication List - Last Reconciled 10/18/24 by Mindi Lara LPN albuterol sulfate mg inhalation albuterol sulfate 90 mcg/actuation inhalation amlodipine 10 mg PO DAILY aripiprazole 10 mg PO DAILY atenolol 50 mg PO DAILY clonazepam 1 mg PO TID PRN clonidine HCl 0.1 mg PO TID dicyclomine 10 mg PO Q6H PRN estradiol 0.01%(0.1mg/gram) 1 g vaginal 3XW 90 days ezetimibe 10 mg PO DAILY famotidine 40 mg PO BID xhapwojrmoo-uqihwfrvu-viexaigs 200-62.5-25 mcg (Trelegy Ellipta) 1 ea inhalation DAILY lamotrigine 200 mg PO DAILY lamotrigine mg PO DAILY linaclotide (Linzess) 145 mcg PO DAILY losartan 100 mg PO DAILY mirtazapine 15 mg PO BEDTIME omeprazole 40 mg PO DAILY PRN Oxygen Home Use As directed sertraline 100 mg PO BID HPI HPI 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 Denies any recent cough, cold, infection, fever or other significant changes in medical history since last office visit. 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 COPD (chronic obstructive pulmonary disease) Surgical History Hx of cholecystectomy H/O parathyroidectomy History of pancreatectomy S/P partial hysterectomy H/O hernia repair Hx of appendectomy Family History Sister Ovarian cancer Mother Skin cancer Social History (Updated 10/12/24 @ 09:15 by Josiah Tanner) Alcohol intake: never Patient Tobacco Use Status: Never used Tobacco Current occupational status: disabled Physical Exam Vital Signs: Last Vital Signs Pulse 68 10/18/24 11:05 Resp 16 10/18/24 11:05 BP 130/74 10/18/24 11:05 Pulse Ox 94 10/18/24 11:05 Oxygen Delivery Method Room Air 10/18/24 11:05 Oxygen Flow Rate 2 10/18/24 10:36 Office Procedures Lumbar/Sacral Facet Inj Details: Lumbar Medial Branch Block, Bilateral L3, L4 medial branches and L5 Dorsal Ramus (2 levels, 3 nerves) After obtaining written consent, pre-procedure blood pressure and pulse were recorded and are in the nursing record for review. The patient was placed in a prone position. The respective lumbosacral area was prepped with chloraprep and draped in sterile fashion. The skin over the target medial branch nerves was anesthetized with 0.5% lidocaine. A 22 gauge 3.5 inch needle was inserted into the target medial branch nerve under fluoroscopic guidance. No paresthesias were elicited with needle placement and aspiration was negative for blood and CSF. Next, 0.2cc of omnipaque 180 was injected to verify positioning. Next 0.5 ml 0.5% ropivicaine was injected (0.5cc total per level). The identical procedure was performed at the remaining levels. The skin was cleansed and a sterile bandage was applied. Following the procedure the patient's vital signs were stable. The patient tolerated the procedure well and no complications were encountered. Following the procedure the patient's vital signs were stable. The patient was discharged home in good condition with post-procedural instructions. Time Out: Immediately prior to the procedure, the following was verbally confirmed that there is a signed consent form and that the correct patient, planned procedure, site and side are consistent with documentation and that necessary equipment and/or blood products are available prior to the start of the case. Complications: none EBL: <5 cc 75180 - with Fluoroscopy 01136 - second level, with Fluoroscopy Procedure code (CPT) selection complete Assessment & Plan Assessment & Plan (1) Lumbosacral spondylosis: Code(s): M47.817 - Spondylosis without myelopathy or radiculopathy, lumbosacral region Category: Medical Plan Patient is status post bilateral lower lumbar diagnostic medial branch blocks. Patient tolerated procedure well and was discharged home in stable condition with discharge instructions. All questions were answered. We will follow-up via telephone or in clinic to assess response to therapy. A follow-up appointment was made during today's visit. Orders: Orders FL guidance in treatment room Today M47.817 - Spondylosis without myelopathy or radiculopathy, lumbosacral region Coding Level of Care Code Procedure Only Diagnoses Lumbosacral spondylosis M47.817 CPT Codes Facet Injection-Lumbar/Sacral - CPT: 14990 - with Fluoroscopy ([id number]) Facet Injection-Lumbar/Sacral - CPT: 41815 - second level, with Fluoroscopy ([id number])
[2024-10-18 11:05] VITALS: BP 130/74; PULSE 68; RESP 16; O2SAT 94
--- OUTSIDE RECORDS SUMMARY | 2024-10-18 12:07 | XMS_ITS | Clinical Summary ---
Author Organization [facility], Address [address] [place] [address] Phone Care Team Providers Care Model Maker Firearms Name Role Phone Katarina Nails Primary Care Provider [phone] Allergies Active Allergy Reactions Criticality Noted Date [...] MOUTH DAILY DISSOLVE IN WATER BEFORE TAKING, [facility]/pharmacy #[id number] 01/24/2019 Active dicyclomine (BENTYL) 10 MG capsule Take 1 capsule by mouth 01/28/2022 Active Cholecalciferol (Vitamin D3) 1.25 MG (51495 UT) capsule Take by mouth 06/09/2018 Act [...] Refill [facility], [address] [place] [address] Gonsalo Antony MD from Last 3 [...] Visit [facility], [address] [place] [address] Gonsalo Antony MD [address] [place] [address] Health [...] 05/03/2024, , 06/11/2021, Additional history exists [place] [address] Medicare Care Teams Model Maker Firearms Relationship Specialty Start Date End Date Katarina Nails FNP [address], [address] [place] [address] PCP - General 05/07/24
--- OUTSIDE RECORDS SUMMARY | 2024-10-18 12:07 | XMS_ITS | Encounter Summary ---
Author Organization [facility] Address [address] [place] [address] Phone Care Team Providers Care Forestry Scientist Name Role Phone Katarina Nails YESSI Primary Care Provider [phone] Encounter Details Date Type Department Care Team (Late st Contact Info) Description 02/29/2024 Documentation Only [facility] [address] [place] [address] [place] [id number] Social History Tobacco Use Types Packs/Day [...] Visit [facility] [address] [place] [phone] Gonsalo Antony MD [address] [place] [phone] documented as of this encounter Visit Diagnoses Not on filedocumented in this encounter Care Teams Forestry Scientist Relationship Specialty Start Date End Date Katarina Nails FNP [address], [address] [place] [address] PCP - General 05/07/24 documented as of this encounter
--- OUTSIDE RECORDS SUMMARY | 2024-10-18 12:07 | XMS_ITS | Encounter Summary ---
Author Organization [facility] Address [address] [place] [address] Phone Care Team Providers Care Semiconductor Assembler Name Role Phone Katarina Nails YESSI Primary Care Provider [phone] Encounter Details Date Type Department Care Team (Late st Contact Info) Description 06/07/2023 Documentation Only [facility] [address] [place] [address] Rubens Palafox PA Social History [...] Visit [facility] [address] [place] [address] Gonsalo Antony MD [address] [place] [phone] documented as of this encounter Visit Diagnoses Not on filedocumented in this encounter Care Teams Semiconductor Assembler Relationship Specialty Start Date End Date Katarina Nails FNP [address], [address] [place] [address] PCP - General 05/07/24 documented as of this encounter
--- OUTSIDE RECORDS SUMMARY | 2024-10-18 12:07 | XMS_ITS | Encounter Summary ---
Author Organization [facility] Address [address] [place] [address] Phone Care Team Providers Care Radar Mechanic Name Role Phone Katarina Nails YESSI Primary Care Provider [phone] Encounter Details Date Type Department Care Team (Late st Contact Info) Description 03/03/2022 Documentation Only [facility] [address] [place] [address] Rubens Palafox PA Social History [...] [facility] [address] [place] [address] Gonsalo Antony MD [address] [place] [phone] documented as of this encounter Visit Diagnoses Not on filedocumented in this encounter Care Teams Radar Mechanic Relationship Specialty Start Date End Date Katarina Nails FNP [address], [address] [place] [address] PCP - General 05/07/24 documented as of this encounter
--- OUTSIDE RECORDS SUMMARY | 2024-10-18 12:07 | XMS_ITS | Encounter Summary ---
Author Organization [facility], Address [address] [place] [address] Phone Care Team Providers Care Testing And Regulating Chief Name Role Phone Katarina Nails YESSI Primary Care Provider [phone] Encounter Details Date Type Department Care Team (Late st Contact Info) Description 03/30/2022 Documentation Only [facility] [address] [place] [address] Rubens Palafox PA Social History [...] Visit [facility] [address] [place] [phone] Gonsalo Antony MD [address] [place] [address] documented as of this encounter Visit Diagnoses Not on filedocumented in this encounter Care Teams Testing And Regulating Chief Relationship Specialty Start Date End Date Katarina Nails FNP [address] [facility] [address] [place] [address] PCP - General 05/07/24 documented as of this encounter
--- OUTSIDE RECORDS SUMMARY | 2024-10-18 12:07 | XMS_ITS | Encounter Summary ---
Author Organization [facility] Address [address] [place] [address] Phone Care Team Providers Care Kick Plate Installer Name Role Phone Katarina Nails YESSI Primary Care Provider Reason for Visit * Reason Comments Med Change Request Encounter Details Date Type Department Care Team (Late st Contact Info) Description 06/08/2023 Refill [facility] [address] [place] [address] Rubens Palafox PA Social History [...] Visit [facility] [address] [place] [address] Gonsalo Antony MD [address] [place] [address] documented as of this encounter Visit Diagnoses Not on filedocumented in this encounter Care Teams Kick Plate Installer Relationship Specialty Start Date End Date Katarina Nails FNP [address], [address] [place] [address] PCP - General 05/07/24 documented as of this encounter
== END 2024-10-18 11:05 | disposition home or self-care (01) ==
LOC: HO.PMCPRC 10:28
PROVIDERS: PCP Nurse Practitioner Family; Visit Provider Internal Medicine
DX: M47.817 Spondylosis without myelopathy or radiculopathy, lumbosacral region (principal)
CPT/HCPCS: 64493; 64494

== ENCOUNTER 2024-10-25 11:00 | Outpatient (REF) | payer OTHER, MEDICARE, SELFPAY | END 2024-10-25 11:01 | disposition home or self-care (01) | LOC: HO.LAB 11:00 | PROVIDERS: PCP Nurse Practitioner Family; Visit Provider Nurse Practitioner Family | DX: Z13.89 Encounter for screening for other disorder (principal) ==

== ENCOUNTER 2024-10-25 11:00 | Outpatient (AMB) | payer OTHER, MEDICARE, SELFPAY ==
--- NOTE | 2024-10-25 11:15 | MHC.OFFVIS ---
Vital Signs 10/25/24 11:19 Height 5 ft Weight 179 lb BMI 35.0 BP 119/70 Blood Pressure Location Lt brachial Position Sitting Pulse 75 Pulse Source Pulse Oximeter Pulse Oximetry (%) 96 Oxygen Delivery Method Nasal Cannula Oxygen Flow Rate 2 Intake Visit Reasons: s/p [place] Dx L3-L4-DR-L5 MBB Intake Note: Pain today 11/03 Labeling Associate Required: No Accompanied by: Spouse Allergies coconut Allergy (Verified 10/25/24 11:27) Rash Penicillins Allergy (Verified 10/25/24 11:27) Hives latex Adverse Reaction (Verified 10/25/24 11:27) Unknown seroquil Allergy (Uncoded 10/18/24 10:37) Seizure HPI Comments Details: Patient presents today to assess response to Bilateral Diagnostic L3-L4 DR L5 MBB on 10/18/[address] Joshua. During the intervention, relief was noted initially but was followed by a return of significant pain the next day, which was described as unbelievably painful. Back pain significantly affects her daily life and functional ability. There were no reports of a pain diary being completed, impeding a quantified assessment of post-procedural pain levels. The established plan includes repeating the injections to evaluate further suitable options for long-term pain control. Denies any recent cough, cold, infection, fever or any other significant changes in medical history since last office visit. Past Procedures: 10/18/24: Bilateral Diagnostic L3-L4 DR L5 MBB-60% pain relief PRIOR: The patient is a 64-year-old female presenting with chronic low back pain and abdominal pain. Her chronic low back pain is characterized by facet arthritis and degenerative disc disease at L4-L5, leading to significant impact on her daily functionality and requiring close management. Despite current use of marijuana edibles for pain relief, it continues to interfere with typical activities and occasionally poses difficulties in attending appointments. Unfortunately, her insurance denied diagnostic lumbar medial branch blocks. Her chronic low back pain is persistent and predominately axial in nature. She denies radiating leg pain, numbness, tingling, bladder or bowel dysfunction or saddle anesthesia. The patient also experiences significant abdominal pain, which she rates as being more severe than her back pain. This abdominal pain has persisted with a significant history of pancreatitis and pancreatectomy acknowledged, requiring planned GI evaluations including potential future colonoscopy and endoscopy per patient. Due to scheduling constraints, GI follow up is not anticipated until October. Her condition is further complicated by dietary restrictions due to pain and a past pancreas condition. She has to take marijuana edibles prior each meal. She feels her abdomen has been more distended and she plans to seek evaluation for this in local ER. Additional concerns include explorations into hepatic pain and potential kidney and pulmonary issues, with mild lower lobe pulmonary fibrosis found on recent imaging. Current management focuses on ruling out any severe underlying conditions and addressing multifactorial pain causes through coordinated care. Patient denies any recent cough, cold, infection, fever, infection, tumor, fracture, cord compression or other significant changes in medical history since last office visit. - Onset: Chronic and ongoing. - Quality and Character: Constant, aching and dull, sharp pain. - Primary Location: Low back, with pain radiating to buttocks particularly during movements. - Areas of Radiation: Sacral, buttocks areas - Aggravating Factors: Bending over, sitting down, standing up from sitting, and getting out of bed. - Relieving Factors: Use of marijuana edibles. Heat therapy, rest, occasionally Naproxen - Interference: Affects daily activities, including sleep, and occasionally results in sharp pains while seated. - Affect: Significant impact on quality of life with limitations on daily activities; the patient reports good sleep with medication. - Analgesia: Current pain management includes marijuana edibles taken multiple times a day. - Adverse Effects: Not explicitly detailed; reliance on medication. - Activities of Daily Living: Pain interferes with daily activities; affects ability to bend, sit, or stand easily. - Aberrant Drug Related Behaviors: None reported; use of marijuana edibles appropriately for pain management. PRIOR: Patient presents today via telehealth encounter to review recent spine and knee xrays. She continues to endorse axial low back pain with activities and at rest and bilateral knee pain with walking or climbing stairs. Patient also reports increased yellowing of her skin and eyes with persistent right upper quadrant pain. We received her recent liver US and old records from previous GI providers, which were reviewed and scanned into patient's chart. Patient reports she would like to transfer her GI care to [facility] and requests referral to our GI group. Denies any recent cough, cold, infection, fever or other significant changes in medical history since last office visit. Denies any changes to medications, medical history or recent hospitalizations. 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 Patient is followed by [facility] for liver cirrhosis due to GARCIA and chronic hepatitis C. She also reports history of following GI provider at [facility]. Reports chronic constipation, bloating, and right upper quadrant pains. Patient also has history of kidney stones with intermittent sharp pain in her left back and recurrent UTI. Back pain is axial, non-radiating but also increases with bending forward due to RUQ pain. Reports h/o back injections with partial pain relief. Denies previous spine surgery. Patient reports anxiety, depression and PTSD has been stable on current treatment and has regular follow up with Dr. Scott. She takes clonazepam 1 mg TID, clonidine, Aripiprazole, Lamotrigine, sertraline. No seizure activity in a long time, stable on. Patient is accompanied by her who is her primary food counter worker. Patient is disability due to PTSD, back pain, and liver cirrhosis. She lives with her and 2 children. Denies alcohol consumption or smoking. Reports use of marijuana edibles for pain. Oswestry Low Back Disability Score=32 (severe disability) Location: RUQ pain due to Hep C and GARCIA, chronic low back pain Duration: Chronic pain since 2013, worsening for past 2 years Characteristics of symptom or complaint: Throbbing, shooting, stabbing, sharp, crushing, aching, tiring, spreading Aggravating or associated factors: Movements, constant pains unrelated to PO intake or fasting Relieving factors: Marijuana edibles, dicyclomine, Naprosyn Treatment: [facility], h/o following GI provider at [facility] Medical History Chronic RUQ pain Kidney stones Generalized anxiety disorder AC on CPAP Constipation Hepatitis C Chronic back pain Bipolar disorder Bilateral knee pain Seizures HTN (hypertension) GERD (gastroesophageal reflux disease) PTSD (post-traumatic stress disorder) Liver cirrhosis secondary to GARCIA COPD (chronic obstructive pulmonary disease) Surgical History Hx of cholecystectomy H/O parathyroidectomy History of pancreatectomy S/P partial hysterectomy H/O hernia repair Hx of appendectomy Family History Sister Ovarian cancer Mother Skin cancer Social History Alcohol intake: never Patient Tobacco Use Status: Never used Tobacco Current occupational status: disabled Review of Systems Const All systems reviewed & are unremarkable except as noted in HPI and below Physical Exam Vital Signs: Last Vital Signs Pulse 75 10/25/24 11:19 BP 119/70 10/25/24 11:19 Pulse Ox 96 10/25/24 11:19 Oxygen Delivery Method Nasal Cannula 10/25/24 11:19 Oxygen Flow Rate 2 10/25/24 11:19 BMI result Body Mass Index 35.0 General: Appears afebrile. Alert and oriented. Mood and affect appropriate. Follows and participates in conversation appropriately. Respiratory effort is unlabored. No cough. O2 dependant. Able to transition from sit to stand unassisted. Ambulates with bilaterally normal heel strike and toe off. General: Yes no CVA tenderness Back/Spine/Pelvis Other: Limited lumbar ROM due to pain. Lumbar extension and axial rotation reproduces moderate to severe pain. Lumbar flexion reproduces abdominal pain but not back pain. Painful facet loading bilaterally. Mild to moderate TTP in the projection of both SIJ. Back: no CVA tenderness Cervical Spine: loss of normal cervical lordosis, cervical muscular tenderness and No Cervical spine tenderness Thoracic/Lumbar Spine: thoracic and lumbar spine normal to inspection, No Thoracic/lumbar spine scar(s), Lasegue's sign negative, straight leg raise negative bilaterally, pain with thoraco-lumbar ROM, thoraco-lumbar ROM limited, No thoracic spinal tenderness and lumbar spinal tenderness (L3-S1) Sacroiliac joints: bilaterally (+Walter's test) tender to palpation Results Reviewed Results Reviewed: XR LUMBAR SPINE 06/14/24 CLINICAL INFORMATION: Dorsalgia, unspecified M54.9. COMPARISON: None available. TECHNIQUE: 7 views of the lumbar spine, inclusive of flexion and extension views, were obtained. FINDINGS: Levoscoliosis of the thoracolumbar spine. Surgical clips in the right upper quadrant. Diffuse demineralization. Degenerative changes in the bilateral sacroiliac joints. Facet arthritis in the lower lumbar spine. Multilevel lumbar spondylosis. Vdywqrjw-uw-wjrwab loss of disc space height at L2-L3. Marked loss of disc space height at L3-L4. Moderate loss of disc space height at L4-L5. Moderate loss of disc space height at L5-S1. Alignment preserved on flexion and extension views. IMPRESSION: Multilevel degenerative disc disease most notable at L3-L4. Assessment & Plan Assessment & Plan (1) Lumbosacral spondylosis: Code(s): M47.817 - Spondylosis without myelopathy or radiculopathy, lumbosacral region Category: Medical (2) Chronic back pain: Code(s): M54.9 - Dorsalgia, unspecified; G89.29 - Other chronic pain Category: Medical (3) Sacroiliac joint pain: Code(s): M53.3 - Sacrococcygeal disorders, not elsewhere classified Category: Medical Plan The management plan involves repeating the medial branch injections with alternate medication to assess efficacy and determine eligibility for subsequent radiofrequency ablation procedures. Close monitoring of pain response using a pain diary is advised to gather detailed data on post-procedure comfort and guide further treatment. Collaboration with the patient to ensure compliance and accurate recording of pain response will be initiated, contributing to treatment plans optimized to address her chronic back pain. Schedule Repeat Diagnostic Bilateral L3-L4 DR L5 MBB with local and fluoroscopy. Expectations, risks and benefits were reviewed. Patient is aware she will be contacted to schedule this procedure. All questions and concerns have been answered and patient agreed with the plan. Follow up after injections and sooner as needed. Patient was informed and verbally consented to the use of an ambient scribe for clinic note documentation during this visit. Patient Instructions: - Maintain a detailed pain diary post-injection to monitor back pain relief every hour for 6 hours. - Report any significant changes in the pain levels to us immediately. - Prepare for a repeat set of injections as discussed. - Understand that this procedure focuses solely on back pain relief. Coding Level of Care Code Est Pt Level 3 (68747) Complex EM visit Add On G2211 Diagnoses Lumbosacral spondylosis M47.817 Chronic back pain M54.9; G89.29 Sacroiliac joint pain M53.3
[2024-10-25 11:19] VITALS: BP 119/70; PULSE 75; O2SAT 96; BMI 35.0
--- OUTSIDE RECORDS SUMMARY | 2024-10-25 12:43 | XMS_ITS | Clinical Summary ---
Author Organization [facility], Address [address] [place] [address] Phone Care Team Providers Care Mitering Machine Operator Name Role Phone Katarina Nails Primary Care Provider [phone] Allergies Active Allergy Reactions Criticality Noted Date [...] MOUTH DAILY DISSOLVE IN WATER BEFORE TAKING, [facility]/pharmacy #[id number] 01/24/2019 Active dicyclomine (BENTYL) 10 MG capsule Take 1 capsule by mouth 01/28/2022 Active Cholecalciferol (Vitamin D3) 1.25 MG (56729 UT) capsule Take by mouth 06/09/2018 Act [...] Refill [facility], [address] [place] [address] Gonsalo Antony MD from Last 3 [...] Team (Late st Contact Info) Description 11/21/2024 2:40 PM EDT Office Visit [facility], [address] [place] [address] Gonsalo Antony MD [address] [place] [address] Health [...] 05/03/2024, , 06/11/2021, Additional history exists [place] [address] Medicare Care Teams Mitering Machine Operator Relationship Specialty Start Date End Date Katarina Nails FNP [address], [address] [place] [address] PCP - General 05/07/24
--- OUTSIDE RECORDS SUMMARY | 2024-10-25 12:43 | XMS_ITS | Encounter Summary ---
Author Organization [facility], Address [address] [place] [address] Phone Care Team Providers Care Owner Consulting Engineer Name Role Phone Katarina Nails YESSI Primary Care Provider [phone] Encounter Details Date Type Department Care Team (Late st Contact Info) Description 03/30/2022 Documentation Only [facility] [address] [place] [address] Rubens Palafox PA Social History [...] Visit [facility] [address] [place] [phone] Gonsalo Antony MD [address] [place] [address] documented as of this encounter Visit Diagnoses Not on filedocumented in this encounter Care Teams Owner Consulting Engineer Relationship Specialty Start Date End Date Katarina Nails FNP [address] [facility] [address] [place] [address] PCP - General 05/07/24 documented as of this encounter
--- OUTSIDE RECORDS SUMMARY | 2024-10-25 12:43 | XMS_ITS | Encounter Summary ---
Author Organization [facility] Address [address] [place] [address] Phone Care Team Providers Care Remote Mortgage Underwriter Name Role Phone Katarina Nails YESSI Primary Care Provider [phone] Encounter Details Date Type Department Care Team (Late st Contact Info) Description 03/03/2022 Documentation Only [facility] [address] [place] [address] Rubens Palafox PA Social History [...] Visit [facility] [address] [place] [address] Gonsalo Antony MD [address] [place] [address] documented as of this encounter Visit Diagnoses Not on filedocumented in this encounter Care Teams Remote Mortgage Underwriter Relationship Specialty Start Date End Date Katarina Nails FNP [address], [address] [place] [address] PCP - General 05/07/24 documented as of this encounter
--- OUTSIDE RECORDS SUMMARY | 2024-10-25 12:43 | XMS_ITS | Encounter Summary ---
Author Organization [facility] Address [address] [place] [address] Phone Care Team Providers Care Ld Teacher Name Role Phone Katarina Nails YESSI Primary Care Provider [phone] Reason for Visit * Reason Comments Med Change Request Encounter Details Date Type Department Care Team (Late st Contact Info) Description 06/08/2023 Refill [facility] [address] [place] [address] Rubens Palafox PA Social History [...] Visit [facility] [address] [place] [address] Gonsalo Antony MD [address] [place] [address] documented as of this encounter Visit Diagnoses Not on filedocumented in this encounter Care Teams Ld Teacher Relationship Specialty Start Date End Date Katarina Nails FNP [address], [address] [place] [address] PCP - General 05/07/24 documented as of this encounter
--- OUTSIDE RECORDS SUMMARY | 2024-10-25 12:43 | XMS_ITS | Encounter Summary ---
Author Organization [facility] Address [address] [place] [address] Phone Care Team Providers Care Cdl Instructor Name Role Phone Katarina Nails YESSI Primary Care Provider [phone] Encounter Details Date Type Department Care Team (Late st Contact Info) Description 02/29/2024 Documentation Only [facility] [address] [place] [address] [place] [phone] Social History Tobacco Use Types Packs/Day [...] Visit [facility] [address] [place] [address] Gonsalo Antony MD [address] [place] [address] documented as of this encounter Visit Diagnoses Not on filedocumented in this encounter Care Teams Cdl Instructor Relationship Specialty Start Date End Date Katarina Nails FNP [address], [address] [place] [address] PCP - General 05/07/24 documented as of this encounter
--- OUTSIDE RECORDS SUMMARY | 2024-10-25 12:43 | XMS_ITS | Encounter Summary ---
Author Organization [facility] Address [address] [place] [address] Phone Care Team Providers Care Honing Job Setter Name Role Phone Katarina Nails YESSI Primary Care Provider [phone] Encounter Details Date Type Department Care Team (Late st Contact Info) Description 06/07/2023 Documentation Only [facility] [address] [place] [address] Rubens Palafox PA Social History [...] Visit [facility] [address] [place] [address] Gonsalo Antony MD [address] [place] [address] documented as of this encounter Visit Diagnoses Not on filedocumented in this encounter Care Teams Honing Job Setter Relationship Specialty Start Date End Date Katarina Nails FNP [address], [address] [place] [address] PCP - General 05/07/24 documented as of this encounter
== END 2024-10-25 11:42 | disposition home or self-care (01) ==
LOC: HO.PMC 11:00
PROVIDERS: PCP Nurse Practitioner Family; Visit Provider Nurse Practitioner Family
DX: M47.817 Spondylosis without myelopathy or radiculopathy, lumbosacral region (principal); M54.9 Dorsalgia, unspecified; G89.29 Other chronic pain; M53.3 Sacrococcygeal disorders, not elsewhere classified
CPT/HCPCS: 99213

== ENCOUNTER 2024-10-28 15:09 | Outpatient (REF) | payer OTHER, MEDICARE, SELFPAY ==
--- NOTE | ~2024-10-28 | MR_ITS ---
EXAMINATION: MR ABDOMEN WITHOUT THEN WITH IV CONTRAST HISTORY: K76.9 - Liver disease, unspecified COMPARISON: None TECHNIQUE: Axial in and out of phase T1-weighted gradient echo, axial diffusion weighted, and axial and coronal HASTE T2 with fat saturation images were obtained through the abdomen. Subsequently, fat suppressed axial and coronal T1-weighted images were obtained after the intravenous administration of 8.5 mL Gadavist. FINDINGS: The liver is enlarged. There is diffuse loss of signal intensity within the liver on opposed phase imaging, consistent with steatosis. There is no enhancing liver mass. The hepatic and portal veins are patent. There is no intra or extrahepatic biliary ductal dilatation. The patient is status post cholecystectomy. The spleen is enlarged. There is a 9 mm T2 hyperintense enhancing lesion within the spleen which likely represents a hemangioma. The pancreas and adrenals are unremarkable. The right kidney is unremarkable. There is left renal scarring and cortical thinning. No retroperitoneal lymphadenopathy or ascites is identified in the upper abdomen. There is a hemangioma in the S1 vertebral body. MR/MR abdomen wo/w con IMPRESSION: 1. Hepatosplenomegaly. 2. Hepatic steatosis. 3. 9 mm probable hemangioma in the spleen. 4. Left renal scarring and cortical thinning. Electronically signed by: Ignacio Carlos MD 10/29/2024 07:38 AM EDT
--- OUTSIDE RECORDS SUMMARY | 2024-10-28 15:15 | XMS_ITS | Encounter Summary ---
Author Organization [facility], Address [address] [place] [address] Phone Care Team Providers Care Homoeopath Name Role Phone Katarina Nails YESSI Primary Care Provider [phone] Encounter Details Date Type Department Care Team (Late st Contact Info) Description 03/30/2022 Documentation Only [facility] [address] [place] [address] Rubens Palafox PA Social History [...] [facility] [address] [place] [address] Gonsalo Antony MD [address] [place] [address] documented as of this encounter Visit Diagnoses Not on filedocumented in this encounter Care Teams Homoeopath Relationship Specialty Start Date End Date Katarina Nails FNP [address] [facility] [address] [place] [address] PCP - General 05/07/24 documented as of this encounter
--- OUTSIDE RECORDS SUMMARY | 2024-10-28 15:15 | XMS_ITS | Encounter Summary ---
Author Organization [facility] Address [address] [place] [address] Phone Care Team Providers Care Under Sheriff Name Role Phone Katarina Nails YESSI Primary Care Provider [phone] Encounter Details Date Type Department Care Team (Late st Contact Info) Description 02/29/2024 Documentation Only [facility] [address] [place] [address] [address]ma Jones [address] [place] [phone] Social History Tobacco Use Types Packs/Day [...] Visit [facility] [address] [place] [address] Gonsalo Antony MD [address] [place] [address] documented as of this encounter Visit Diagnoses Not on filedocumented in this encounter Care Teams Under Sheriff Relationship Specialty Start Date End Date Katarina Nails FNP [address], [address] [place] [address] PCP - General 05/07/24 documented as of this encounter
--- OUTSIDE RECORDS SUMMARY | 2024-10-28 15:15 | XMS_ITS | Encounter Summary ---
Author Organization [facility] Address [address] [place] [address] Phone Care Team Providers Care Invoicing Machine Operator Name Role Phone Katarina Nails YESSI Primary Care Provider [phone] Encounter Details Date Type Department Care Team (Late st Contact Info) Description 03/03/2022 Documentation Only [facility] [address] [place] [address] Rubens Palafox PA Social History [...] [facility] [address] [place] [address] Gonsalo Antony MD [address] [place] [address] documented as of this encounter Visit Diagnoses Not on filedocumented in this encounter Care Teams Invoicing Machine Operator Relationship Specialty Start Date End Date Katarina Nails FNP [address], [address] [place] [address] PCP - General 05/07/24 documented as of this encounter
--- OUTSIDE RECORDS SUMMARY | 2024-10-28 15:15 | XMS_ITS | Encounter Summary ---
Author Organization [facility] Address [address] [place] [address] Phone Care Team Providers Care Bus Driver Supervisor Name Role Phone Katarina Nails YESSI Primary Care Provider [phone] Encounter Details Date Type Department Care Team (Late st Contact Info) Description 06/07/2023 Documentation Only [facility] [address] [place] [address] Rubens Palafox PA Social History [...] [facility] [address] [place] [address] Gonsalo Antony MD [address] [facility] [place] [phone] documented as of this encounter Visit Diagnoses Not on filedocumented in this encounter Care Teams Bus Driver Supervisor Relationship Specialty Start Date End Date Katarina Nails FNP [address], [address] [place] [address] PCP - General 05/07/24 documented as of this encounter
--- OUTSIDE RECORDS SUMMARY | 2024-10-28 15:15 | XMS_ITS | Encounter Summary ---
Author Organization [facility] Address [address] [place] [address] Phone Care Team Providers Care Sales Representative Cash Registers Name Role Phone Katarina Nails YESSI Primary Care Provider [phone] Reason for Visit * Reason Comments Med Change Request Encounter Details Date Type Department Care Team (Late st Contact Info) Description 06/08/2023 Refill [facility] [address] [place] [address] Rubens [...] Visit [facility] [address] [place] [address] Gonsalo Antony MD [address] [place] [address] documented as of this encounter Visit Diagnoses Not on filedocumented in this encounter Care Teams Sales Representative Cash Registers Relationship Specialty Start Date End Date Katarina Nails FNP [address], [address] [place] [address] PCP - General 05/07/24 documented as of this encounter
[2024-10-28] MEDS: gadobutroL 10 ML VIAL IVPUSH (16:10)
== END 2024-10-28 15:10 | disposition home or self-care (01) ==
LOC: HO.MRI 15:09
PROVIDERS: Visit Provider Internal Medicine
DX: K76.9 Liver disease, unspecified (principal)
CPT/HCPCS: 74183; A9585

== ENCOUNTER → 2024-10-28 15:26 | Outpatient (BNV) | payer OTHER, MEDICARE, SELFPAY | PROVIDERS: Visit Provider Radiology Diagnostic Radiology | DX: N28.89 Other specified disorders of kidney and ureter (principal); K76.0 Fatty (change of) liver, not elsewhere classified; R16.2 Hepatomegaly with splenomegaly, not elsewhere classified | CPT/HCPCS: 74183 ==

== ENCOUNTER 2024-11-05 12:17 | Outpatient (REF) | payer OTHER, MEDICARE, SELFPAY ==
--- OUTSIDE RECORDS SUMMARY | 2024-11-05 12:49 | XMS_ITS | Encounter Summary ---
Author Organization [facility] Address [address] [place] [address] Phone Care Team Providers Care Energy Control Officer Name Role Phone Katarina Nails YESSI Primary Care Provider [phone] Reason for Visit * Reason Comments Med Change Request Encounter Details Date Type Department Care Team (Late st Contact Info) Description 06/08/2023 Refill [facility] [address] [place] [address] Rubens Palafox PA Social History [...] Visit [facility] [address] [place] [address] Gonsalo Antony MD [address] [facility] [address] [place] [address] documented as of this encounter Visit Diagnoses Not on filedocumented in this encounter Care Teams Energy Control Officer Relationship Specialty Start Date End Date Katarina Nails FNP [address], [address] [place] [address] PCP - General 05/07/24 documented as of this encounter
--- OUTSIDE RECORDS SUMMARY | 2024-11-05 12:49 | XMS_ITS | Encounter Summary ---
Author Organization [facility] Address [address] [place] [address] Phone Care Team Providers Care Resident Services Director Name Role Phone Katarina Nails YESSI Primary Care Provider [phone] Encounter Details Date Type Department Care Team (Late st Contact Info) Description 02/29/2024 Documentation Only [facility] [address] [place] [address] Jones [address] [place] [phone] Social History Tobacco Use Types Packs/Day [...] Visit [facility] [address] [place] [phone] Gonsalo Antony MD [address] [facility] [place] [phone] documented as of this encounter Visit Diagnoses Not on filedocumented in this encounter Care Teams Resident Services Director Relationship Specialty Start Date End Date Katarina Nails FNP [address], [address] [place] [address] PCP - General 05/07/24 documented as of this encounter
--- OUTSIDE RECORDS SUMMARY | 2024-11-05 12:49 | XMS_ITS | Encounter Summary ---
Author Organization [facility] [place], Address [address] [place] [address] Phone Care Team Providers Care Sap Enterprise Portal Consultant Name Role Phone Katarina Nails YESSI Primary Care Provider [phone] Encounter Details Date Type Department Care Team (Late st Contact Info) Description 03/30/2022 Documentation Only [facility] [address] [place] [address] Rubens Palafox PA Social History [...] Visit [facility] [address] [place] [phone] Gonsalo Antony MD [address] [place] [address] documented as of this encounter Visit Diagnoses Not on filedocumented in this encounter Care Teams Sap Enterprise Portal Consultant Relationship Specialty Start Date End Date Katarina Nails FNP [address] [facility] [address] [place] [address] PCP - General 05/07/24 documented as of this encounter
--- OUTSIDE RECORDS SUMMARY | 2024-11-05 12:49 | XMS_ITS | Encounter Summary ---
Author Organization [facility] Address [address] [place] [address] Phone Care Team Providers Care Inspector Tubes Name Role Phone Katarina Nails YESSI Primary Care Provider [phone] Encounter Details Date Type Department Care Team (Late st Contact Info) Description 06/07/2023 Documentation Only [facility] [address] [place] [address] Rubens Palafox PA Social History [...] [facility] [address] [place] [address] Gonsalo Antony MD [address] [facility] [place] [phone] documented as of this encounter Visit Diagnoses Not on filedocumented in this encounter Care Teams Inspector Tubes Relationship Specialty Start Date End Date Katarina Nails FNP [address], [address] [place] [address] PCP - General 05/07/24 documented as of this encounter
--- OUTSIDE RECORDS SUMMARY | 2024-11-05 12:49 | XMS_ITS | Clinical Summary ---
Author Organization [facility] [place], Address [address] [place] [address] Phone Care Team Providers Care Patient Relations Coordinator Name Role Phone Katarina Nails Primary Care Provider Allergies Active Allergy Reactions Criticality Noted Date [...] MOUTH DAILY DISSOLVE IN WATER BEFORE TAKING, [facility]/pharmacy #[id number] 01/24/2019 Active dicyclomine (BENTYL) 10 MG capsule Take 1 capsule by mouth 01/28/2022 Active Cholecalciferol (Vitamin D3) 1.25 MG (13961 UT) capsule Take by mouth 06/09/2018 Act [...] Refill [facility] [place], [address] [place] [address] Gonsalo Antony MD from Last [...] Visit [facility] [place], [address] [place] [address] Gonsalo Antony MD [address] [facility] [place] [address] Health [...] 05/03/2024, , 06/11/2021, Additional history exists [place] [address] Medicare Care Teams Patient Relations Coordinator Relationship Specialty Start Date End Date Katarina Nails FNP [address], [address] [place] [address] PCP - General 05/07/24
--- OUTSIDE RECORDS SUMMARY | 2024-11-05 12:49 | XMS_ITS | Encounter Summary ---
Author Organization [facility] Address [address] [place] [address] Phone Care Team Providers Care Senior Receptionist Name Role Phone Katarina Nails YESSI Primary Care Provider [phone] Encounter Details Date Type Department Care Team (Late st Contact Info) Description 03/03/2022 Documentation Only [facility] [address] [place] [address] Rubens Palafox PA Social History [...] [facility] [address] [place] [address] Gonsalo Antony MD [address] [place] [phone] documented as of this encounter Visit Diagnoses Not on filedocumented in this encounter Care Teams Senior Receptionist Relationship Specialty Start Date End Date Katarina Nails FNP [address], [address] [place] [address] PCP - General 05/07/24 documented as of this encounter
[2024-11-05 13:50] LABS: Hematocrit 35.1 % (37.0-47.0); Mean Corpuscular HGB Conc 34.2 g/dl (31.0-35.0); Mean Corpuscular Hemoglobin 32.3 pg (27.0-33.0); Mean Corpuscular Volume 94.4 fL (80.0-98.0); Mean Platelet Volume 9.2 fL (9.4-12.3); Platelet Count 198 X10*3/uL (160-400); Red Blood Count 3.72 X10*6/uL (4.20-5.50); Red Cell Distribution Width 12.9 % (11.0-16.0); White Blood Count 6.9 X10*3/uL (4.8-10.8)
[2024-11-05 14:11] LABS: Appearance Urine Clear; Color Urine Yellow; Glucose Urine UA Negative (Negative); Leukocyte Esterase Urine Large (3+) (Negative); Nitrite Urine Positive (Negative); PH 5.5 (5.0-9.0); Specific Gravity - Urine 1.015 (1.005-1.025); UMIC TRIGGER UA YES; Urine Blood Negative (Negative); Urine Ketones Negative (Negative); Urine Protein Trace mg/dL (Neg-Trace)
[2024-11-05 14:16] LABS: Bacteria Urine 4+ (None Seen); Hyaline Casts Urine 0-2 /LPF (0-2); RBC Urine 0-2 /HPF (0-2); Squamous Epithelial Cell Urine 0-2 /HPF (0-2); WBC Urine >50 /HPF (0-5)
[2024-11-05 14:59] LABS: Alanine Aminotransferase 43 U/L (0-31); Albumin Level 4.8 g/dL (3.5-5.0); Alkaline Phosphatase 102 U/L (39-117); Anion Gap 14 (12-20); Aspartate Amino Transferase 42 U/L (5-31); Bilirubin Total 0.6 mg/dL (0.0-1.0); Blood Urea Nitrogen 19 mg/dL (9-16); Calcium 9.9 mg/dL (8.4-10.2); Carbon Dioxide 23 mmol/L (22-29); Chloride 107 mmol/L (96-108); Estimated Glomerular Filt Rate > 60; Glucose Random 93 mg/dL (60-115); Potassium 4.1 mmol/L (3.3-5.1); Sodium 140 mmol/L (135-145)
[2024-11-05 15:16] LABS: Gamma Glutamyl Transpeptidase 208 U/L (7-33)
[2024-11-06 05:44] LABS: Alpha 1 Anti-trypsin 71 mg/dL (83-199)
[2024-11-06 07:37] LABS: HBc Num1 0.13 S/CO (0.00-0.79); HBsAGNum1 0.59 S/CO (0.00-0.99); Hepatitis B Core Antibody Nonreactive (Nonreactive); Hepatitis B Surface Antigen Negative (Negative); ~HepC Num1 0.19 S/CO (0.00-0.79); ~Hepatitis B Surface Antibody NONREACTIVE (Nonreactive); ~Hepatitis C Antibody Nonreactive (Nonreactive)
[2024-11-06 08:07] LABS: Hepatitis A Antibody IgM 0.14 Index (0-0.79); ~Hepatitis A Antibody IgM Nonreactive (Nonreactive)
[2024-11-07 10:47] LABS: Mitochondrial Antibodies NEGATIVE (NEGATIVE)
[2024-11-07 21:38] LABS: Liver Kidney Microsomal Ab <=20.0 U (<=20.0); Smooth Muscle Antibody <20 U (<20)
[2024-11-08 17:59] LABS: Alk.Phos Iso. Macrohepatic 0 % (<=0); Alk.Phos Isoenzymes Bone 26 % (28-66); Alk.Phos Isoenzymes Intest 0 % (1-24); Alk.Phos Isoenzymes Liver 74 % (25-69); Alk.Phos Isoenzymes Placental 0 % (<=0); Alk.Phos Isoenzymes Total 97 U/L (37-153)
[2024-11-14 12:19] LABS: A1A Clinical Indication NG; A1A Referring Physician NG
== END 2024-11-05 12:18 | disposition home or self-care (01) ==
LOC: HO.LAB 12:17
PROVIDERS: Absent Provider Nurse Practitioner Family; PCP Nurse Practitioner Family; Referring Provider Nurse Practitioner Family; Visit Provider Internal Medicine
DX: K75.81 Nonalcoholic steatohepatitis (NASH) (principal); R14.0 Abdominal distension (gaseous); N39.0 Urinary tract infection, site not specified; K76.9 Liver disease, unspecified; R74.8 Abnormal levels of other serum enzymes
CPT/HCPCS: 36415; 80053; 81001; 82103; 82104; 82977; 84080; 85027; 85610; 86015; 86376; 86381; 86704; 86706; 86709; 86803; 87086; 87088; 87186; 87340

== ENCOUNTER 2024-12-19 07:53 | Outpatient (AMB) | payer OTHER, MEDICARE, SELFPAY ==
--- OUTSIDE RECORDS SUMMARY | 2024-12-19 07:58 | XMS_ITS | Clinical Summary ---
Author Organization [facility] [place], Address [address] [place] [address] Phone Care Team Providers Care Corporate Relations Manager Name Role Phone Katarina Nails Primary Care Provider [phone] Allergies Active Allergy Reactions Criticality Noted Date [...] 01/28/2022 Active Cholecalciferol (Vitamin D3) 1.25 MG (23323 UT) capsule Take by mouth 06/09/2018 Act [...] Hepatitis 03/08/2022 04/05/2022 Hyperparathyroidism 03/08/2022 04/05/20 22 Immunizations Immunization Administration Dates Next Due Influenza [...] 77 08/27/2022 10:53 AM EST Temperature 36.2 C (97.2 F) 08/27/2022 10:53 AM EST Respiratory Rate 16 08/27/2022 10:5 [...] Care Team (Late st Contact Info) Description 02/12/2025 10:20 AM EDT Office Visit [facility] [place], [address] [place] [address] Gonsalo Antony MD [address] [facility] [place] [address] Health Maintenance Due Date Last Done Comments Breast Cancer Screening 1962 Pneumococcal Vaccine: 50+ Ye ars (1 of 2 - PCV) 1981 Colorectal Cancer Screening: Annual FOBT 2011 Colorectal Cancer Screening: Colonoscopy 2011 Colorectal Cancer Screening: Sigmoidoscopy 2011 Hepatitis B Vaccine (1 of 3 - Risk 3-dose series) 2022 Influenza Vaccine Completed 05/03/2024, , 06/11/2021, Additional history [place] [address] Medicare Care Teams Corporate Relations Manager Relationship Specialty Start Date End Date Katarina Nails FNP [address], [address] [place] [address] PCP - General 05/07/24
--- NOTE | 2024-12-19 08:03 | A.OFFVIS_ITS ---
Intake Visit Reasons: follow up/ PVR Intake Note: Patient presents today for follow up on : recurrent uti Urology Medications: estrace cream Blood Thinner: none PVR: 0ml's Video Conference Specialist Required: No Accompanied by: Self / Same As Patient Allergies coconut Allergy (Verified 12/19/24 08:18) Rash Penicillins Allergy (Verified 12/19/24 08:18) Hives latex Adverse Reaction (Verified 12/19/24 08:18) Unknown seroquil Allergy (Uncoded 12/19/24 08:18) Seizure Medication List - Last Reviewed 12/19/24 by SELWYN Swain albuterol sulfate mg inhalation albuterol sulfate 90 mcg/actuation inhalation amlodipine 10 mg PO DAILY aripiprazole 10 mg PO DAILY atenolol 50 mg PO DAILY clonazepam 1 mg PO TID PRN clonidine HCl 0.1 mg PO TID dicyclomine 10 mg PO Q6H PRN estradiol 0.01%(0.1mg/gram) 1 g vaginal 3XW 90 days ezetimibe 10 mg PO DAILY famotidine 40 mg PO BID vtptspzkkpw-[id number]-czpkgevz 200-62.5-25 mcg (Trelegy Ellipta) 1 ea inhalation DAILY lamotrigine 200 mg PO DAILY lamotrigine mg PO DAILY linaclotide (Linzess) 145 mcg PO DAILY losartan 100 mg PO DAILY mirtazapine 15 mg PO BEDTIME nitrofurantoin monohyd/m-cryst 100 mg (Macrobid) 100 mg PO BID 7 days omeprazole 40 mg PO DAILY PRN Oxygen Home Use As directed semaglutide (weight loss) (Wegovy) 0.25 mg subcut QWEEK sertraline 100 mg PO BID HPI Comments Details: Latricia is a very pleasant 64-year-old female patient of Dr. Nails who was accompanied by her and son at today's office visit. 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 She presents to the office today for follow-up of her recurrent urinary tract infections. In discussion with the patient today she reports to be doing and feeling well. She reports compliance with Estrace cream as prescribed and is requesting a refill. She reports having had 1 urinary tract infections since her last office visit here approximately 4 months ago. She reports she has since completed antibiotic therapy as prescribed. She currently denies any bothersome urinary issues or concerns. She denies any UTI like symptoms. Unable to obtain urine for urinalysis however PVR 0 mL. Previous workup has included a retroperitoneal ultrasound 08/21 bilateral kidneys are normal in size and echotexture. No collecting system dilatation of either kidney. There is a possible focal prominence normal parenchyma in the mid left kidney. Normal color Doppler. The urinary bladder is unremarkable. Pre void bladder volume is approximately 310 mL. Postvoid bladder volume is approximately 75 mL. Patient with previous MRI imaging 09/15 that notes multifocal left renal cortical thinning/scarring. No hydronephrosis. Kidneys enhance symmetrically. No suspicious masses noted. She reports typical UTI like symptoms are foul-smelling urine and cloudy urine. Patient with lo ngstanding history of surgical interventions to include appendectomy, bladder surgery with Dr. Villa over 20 years ago, C-sections, cholecystectomy, hernia repairs, hysterectomy partial, pancreatic surgery, and parathyroidectomy. She otherwise denies urinary urgency, urinary frequency, incontinence, nocturia, hematuria, dysuria, changes to urinary stream, flank pain, fever, and or chills. We discussed at length potential causes of recurrent urinary tract infections. She otherwise offers no other issues or concerns at this time. [facility] Medical History Chronic RUQ pain Kidney stones Generalized anxiety disorder AC on CPAP Constipation Hepatitis C Chronic back pain Bipolar disorder Bilateral knee pain Seizures HTN (hypertension) GERD (gastroesophageal reflux disease) PTSD (post-traumatic stress disorder) Liver cirrhosis secondary to GARCIA COPD (chronic obstructive pulmonary disease) Surgical History Hx of cholecystectomy H/O parathyroidectomy History of pancreatectomy S/P partial hysterectomy H/O hernia repair Hx of appendectomy Family History Sister Ovarian cancer Mother Skin cancer Social History Alcohol intake: never Patient Tobacco Use Status: Never used Tobacco Current occupational status: disabled Review of Systems Const All systems reviewed & are unremarkable except as noted in HPI and below Physical Exam Const General: cooperative, healthy appearing, comfortable, no acute distress, well developed, alert and awake Nutritional Appearance: overweight Orientation/consciousness: oriented to person Limitations: no limitations HEENT Head: Yes normal to inspection, Yes normocephalic and Yes atraumatic Ears: hearing grossly normal bilaterally Eyes General: appearance normal, both eyes and all related structures Neck Neck: Yes normal visual inspection and Yes trachea midline Chest Chest palpation & inspection: normal inspection of the chest Resp Effort & Inspection: normal respiratory effort and able to speak in complete sentences Cardio Rate: regular rate GI Inspection: Yes normal to inspection General: Yes no CVA tenderness Back/Spine/Pelvis Back: no CVA tenderness Skin General skin exam: no rashes or lesions noted Neuro General: oriented to person Extrem General: Yes normal to inspection Psych Appearance: grossly normal and well kempt Mental Status: mental status grossly normal Speech and movement: Normal speech and movement present and Clear speech present Affect: normal affect Attitude: cooperative Thought process: Normal thought process present Thought content: Normal thought content present Insight: Fair insight present (Psych) Judgement: Fair judgement present (Psych) Office Procedures Post Void Residual Post Residual Void Post Void Residual (PVR): 0 [id number]-[id number] Void Residual by ultrasound Assessment & Plan Assessment & Plan (1) Recurrent urinary tract infection: Code(s): N39.0 - Urinary tract infection, site not specified Category: Medical Plan Unable to obtain urine for urinalysis however PVR 0 mL Continue Estrace cream. Patient currently denies any bothersome urinary issues. She reports be happy with current voiding parameters. We discussed at length potential causes of recurrent urinary tract infections as well as further treatment options and risks and benefits of these treatment options. Discussed UTI prevention with D mannose supplement, vitamin-C, increasing fluid intake, behavioral therapy with timed voiding, perineal hygiene and postcoital voiding, and management of constipation with stool softeners and increased fiber intake. Follow-up in 3-6months with PVR; or sooner with any issues, concerns, and or questions. Orders: Orders AMB Post Void Residual by ultrasound Today N39.0 - Urinary tract infection, site not specified Medications: Refilled estradiol 0.01%(0.1mg/gram) Pea-sized amount to urethra daily x1 month and then 3 times per week thereafter 1 g vaginal 3XW 42.5 grams 2RF 90 days N36.2 - Urethral caruncle, N 39.0 - Urinary tract infection, site not specified, N95.2 - Postmenopausal atrophic vaginitis Patient Instructions: The patient had an opportunity to ask questions regarding the treatment plan. All questions were answered. Physical exam, labs, and imaging were discussed and reviewed in detail. As well as risks, benefits, and discussion of treatment choices. No major barriers to understanding were identified. The patient expressed understanding and agreement with the above treatment plan. The patient was made aware they should contact our office by phone for worsening of their current condition, the appearance of new symptoms, or with any questions or concerns. Compliance is encouraged with any medications and follow up testing that is ordered. It is a privilege to be allowed the opportunity to participate in? your urological care.? Again, if you have any questions or concerns If you have any questions or concerns please do not hesitate to contact me. The office is [phone]. This note is constructed using voice recognition software. While every effort has been made to ensure accuracy fuel handler errors may have been included. Yours sincerely, AMI Fleming Coding Level of Care Code Est Pt Level 3 (26772) Complex EM visit Add On G2211 Diagnoses Recurrent urinary tract infection N39.0 CPT Codes Post Residual Void - PVR CPT Code: 69936-Jmrp Void Residual by ultrasound ([id number])
== END 2024-12-19 08:31 | disposition home or self-care (01) ==
LOC: HO.HUSH 07:54
PROVIDERS: PCP Nurse Practitioner Family; Visit Provider Nurse Practitioner Family
DX: N39.0 Urinary tract infection, site not specified (principal)
CPT/HCPCS: 99213

== ENCOUNTER → 2024-12-19 07:53 | Outpatient (BNVA) | payer OTHER, MEDICARE, SELFPAY | PROVIDERS: PCP Nurse Practitioner Family; Visit Provider Nurse Practitioner Family | DX: N39.0 Urinary tract infection, site not specified (principal) | CPT/HCPCS: 51798 ==

== ENCOUNTER 2024-12-21 08:26 | Outpatient (AMB) | payer MEDICARE, OTHER, SELFPAY ==
--- NOTE | 2024-12-21 08:28 | MHC.OFFVIS ---
Vital Signs 12/21/24 08:35 Height 5 ft Weight 179 lb BMI 35.0 BP 144/77 H Blood Pressure Location Lt brachial Position Sitting Pulse 77 Pulse Source Pulse Oximeter Pulse Oximetry (%) 90 L Oxygen Delivery Method Nasal Cannula Oxygen Flow Rate 2 Intake Visit Reasons: Medicare denial/appt cancelled on 12/06 by patient Intake Note: Pain today 08/06 Applications Intern Required: No Accompanied by: Family/Other Allergies coconut Allergy (Verified 12/21/24 08:36) Rash Penicillins Allergy (Verified 12/21/24 08:36) Hives latex Adverse Reaction (Verified 12/21/24 08:36) Unknown seroquil Allergy (Uncoded 12/19/24 08:18) Seizure HPI Comments Details: The patient is a 64-year-old female presenting with discussion for repeated lumbar medial branch block denial and chronic abdominal pain. The denial of the second round of lumbar medial branch blocks by insurance has interrupted her pain management strategy. She continues to experience abdominal pain and axial low back pain. Patient reports her back pain radiates into her buttocks and lateral hips and increases with movements, walking, prolonged sitting or driving or changing her positions. This is consistent with sacroiliac joint pain which was confirmed with previous imaging, noted for degenerative changes in the bilateral sacroiliac joints. She is interested to address this with therapeutic injections. The abdominal pain persists, and she has recently commenced Wegovy for weight management. The onset of nausea since starting Wegovy is a concern to her that she needs to address with prescribing provider. The patient states she is awaiting an appointment with Dr. Wm Worthy for the evaluation of Alpha-1 antitrypsin deficiency. Her abdominal MRI and blood work suggest further investigation by a tissue rewinder is necessary. Denies any recent cough, cold, infection, fever or other significant changes in medical history since last office visit. PRIOR: Patient presents today to assess response to Bilateral Diagnostic L3-L4 DR Cece LOYDB on 10/18/[address] Joshua. During the intervention, relief was noted initially but was followed by a return of significant pain the next day, which was described as unbelievably painful. Back pain significantly affects her daily life and functional ability. There were no reports of a pain diary being completed, impeding a quantified assessment of post-procedural pain levels. The established plan includes repeating the injections to evaluate further suitable options for long-term pain control. Denies any recent cough, cold, infection, fever or any other significant changes in medical history since last office visit. Past Procedures: 10/18/24: Bilateral Diagnostic L3-L4 DR L5 MBB-60% pain relief PRIOR: The patient is a 64-year-old female presenting with chronic low back pain and abdominal pain. Her chronic low back pain is characterized by facet arthritis and degenerative disc disease at L4-L5, leading to significant impact on her daily functionality and requiring close management. Despite current use of marijuana edibles for pain relief, it continues to interfere with typical activities and occasionally poses difficulties in attending appointments. Unfortunately, her insurance denied diagnostic lumbar medial branch blocks. Her chronic low back pain is persistent and predominately axial in nature. She denies radiating leg pain, numbness, tingling, bladder or bowel dysfunction or saddle anesthesia. The patient also experiences significant abdominal pain, which she rates as being more severe than her back pain. This abdominal pain has persisted with a significant history of pancreatitis and pancreatectomy acknowledged, requiring planned GI evaluations including potential future colonoscopy and endoscopy per patient. Due to scheduling constraints, GI follow up is not anticipated until October. Her condition is further complicated by dietary restrictions due to pain and a past pancreas condition. She has to take marijuana edibles prior each meal. She feels her abdomen has been more distended and she plans to seek evaluation for this in local ER. Additional concerns include explorations into hepatic pain and potential kidney and pulmonary issues, with mild lower lobe pulmonary fibrosis found on recent imaging. Current management focuses on ruling out any severe underlying conditions and addressing multifactorial pain causes through coordinated care. Patient denies any recent cough, cold, infection, fever, infection, tumor, fracture, cord compression or other significant changes in medical history since last office visit. - Onset: Chronic and ongoing. - Quality and Character: Constant, aching and dull, sharp pain. - Primary Location: Low back, with pain radiating to buttocks particularly during movements. - Areas of Radiation: Sacral, buttocks areas - Aggravating Factors: Bending over, sitting down, standing up from sitting, and getting out of bed. - Relieving Factors: Use of marijuana edibles. Heat therapy, rest, occasionally Naproxen - Interference: Affects daily activities, including sleep, and occasionally results in sharp pains while seated. - Affect: Significant impact on quality of life with limitations on daily activities; the patient reports good sleep with medication. - Analgesia: Current pain management includes marijuana edibles taken multiple times a day. - Adverse Effects: Not explicitly detailed; reliance on medication. - Activities of Daily Living: Pain interferes with daily activities; affects ability to bend, sit, or stand easily. - Aberrant Drug Related Behaviors: None reported; use of marijuana edibles appropriately for pain management. PRIOR: Patient presents today via telehealth encounter to review recent spine and knee xrays. She continues to endorse axial low back pain with activities and at rest and bilateral knee pain with walking or climbing stairs. Patient also reports increased yellowing of her skin and eyes with persistent right upper quadrant pain. We received her recent liver US and old records from previous GI providers, which were reviewed and scanned into patient's chart. Patient reports she would like to transfer her GI care to [facility] and requests referral to our GI group. Denies any recent cough, cold, infection, fever or other significant changes in medical history since last office visit. Denies any changes to medications, medical history or recent hospitalizations. 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 Patient is followed by [facility] for liver cirrhosis due to GARCIA and chronic hepatitis C. She also reports history of following GI provider at [facility]. Reports chronic constipation, bloating, and right upper quadrant pains. Patient also has history of kidney stones with intermittent sharp pain in her left back and recurrent UTI. Back pain is axial, non-radiating but also increases with bending forward due to RUQ pain. Reports h/o back injections with partial pain relief. Denies previous spine surgery. Patient reports anxiety, depression and PTSD has been stable on current treatment and has regular follow up with Dr. Scott. She takes clonazepam 1 mg TID, clonidine, Aripiprazole, Lamotrigine, sertraline. No seizure activity in a long time, stable on. Patient is accompanied by her who is her primary school admissions representative. Patient is disability due to PTSD, back pain, and liver cirrhosis. She lives with her and 2 children. Denies alcohol consumption or smoking. Reports use of marijuana edibles for pain. Oswestry Low Back Disability Score=32 (severe disability) Location: RUQ pain due to Hep C and GARCIA, chronic low back pain Duration: Chronic pain since 2013, worsening for past 2 years Characteristics of symptom or complaint: Throbbing, shooting, stabbing, sharp, crushing, aching, tiring, spreading Aggravating or associated factors: Movements, constant pains unrelated to PO intake or fasting Relieving factors: Marijuana edibles, dicyclomine, Naprosyn Treatment: [facility], h/o following GI provider at [facility] Medical History Chronic RUQ pain Kidney stones Generalized anxiety disorder AC on CPAP Constipation Hepatitis C Chronic back pain Bipolar disorder Bilateral knee pain Seizures HTN (hypertension) GERD (gastroesophageal reflux disease) PTSD (post-traumatic stress disorder) Liver cirrhosis secondary to GARCIA COPD (chronic obstructive pulmonary disease) Surgical History Hx of cholecystectomy H/O parathyroidectomy History of pancreatectomy S/P partial hysterectomy H/O hernia repair Hx of appendectomy Family History Sister Ovarian cancer Mother Skin cancer Social History Alcohol intake: never Patient Tobacco Use Status: Never used Tobacco Current occupational status: disabled Review of Systems Const All systems reviewed & are unremarkable except as noted in HPI and below Physical Exam Vital Signs: Last Vital Signs Pulse 77 12/21/24 08:35 BP 144/77 H 12/21/24 08:35 Pulse Ox 90 L 12/21/24 08:35 Oxygen Delivery Method Nasal Cannula 12/21/24 08:35 Oxygen Flow Rate 2 12/21/24 08:35 BMI result Body Mass Index 35.0 General: Appears afebrile. Alert and oriented. Mood and affect appropriate. Follows and participates in conversation appropriately. Respiratory effort is unlabored. No cough. O2 dependant. Able to transition from sit to stand unassisted. Ambulates with bilaterally normal heel strike and toe off. GI Inspection: Yes obesity Palpation (GI): Soft to palpation, Tenderness to palpation present (GI) in the LUQ and in the RUQ, no guarding and Hepatosplenomegaly present General: Yes no CVA tenderness Back/Spine/Pelvis Other: Limited lumbar ROM due to pain. Lumbar extension and axial rotation reproduces moderate pain. Lumbar flexion reproduces abdominal and back pain. Painful facet loading bilaterally. Moderate TTP in the projection of both SIJ. Walter's, Stinchfield, Pelvic compression positive bilaterally. Back: no CVA tenderness Cervical Spine: loss of normal cervical lordosis, cervical muscular tenderness and No Cervical spine tenderness Thoracic/Lumbar Spine: thoracic and lumbar spine normal to inspection, No Thoracic/lumbar spine scar(s), Lasegue's sign negative, straight leg raise negative bilaterally, pain with thoraco-lumbar ROM, paraspinal muscle tenderness, thoraco-lumbar ROM limited, No thoracic spinal tenderness and lumbar spinal tenderness (L3-S1) Sacroiliac joints: bilaterally tender to palpation Extrem General: Yes capillary refill normal, Yes no clubbing, cyanosis or edema and Yes no calf tenderness Results Reviewed Results Reviewed: XR LUMBAR SPINE 06/14/24 CLINICAL INFORMATION: Dorsalgia, unspecified M54.9. COMPARISON: None available. TECHNIQUE: 7 views of the lumbar spine, inclusive of flexion and extension views, were obtained. FINDINGS: Levoscoliosis of the thoracolumbar spine. Surgical clips in the right upper quadrant. Diffuse demineralization. Degenerative changes in the bilateral sacroiliac joints. Facet arthritis in the lower lumbar spine. Multilevel lumbar spondylosis. Ktcirhel-ki-lffvtd loss of disc space height at L2-L3. Marked loss of disc space height at L3-L4. Moderate loss of disc space height at L4-L5. Moderate loss of disc space height at L5-S1. Alignment preserved on flexion and extension views. IMPRESSION: Multilevel degenerative disc disease most notable at L3-L4. MR abdomen wo/w con 10/28/24 IMPRESSION: 1. Hepatosplenomegaly. 2. Hepatic steatosis. 3. 9 mm probable hemangioma in the spleen. 4. Left renal scarring and cortical thinning. Assessment & Plan Assessment & Plan (1) Lumbosacral spondylosis: Code(s): M47.817 - Spondylosis without myelopathy or radiculopathy, lumbosacral region Category: Medical (2) Chronic back pain: Code(s): M54.9 - Dorsalgia, unspecified; G89.29 - Other chronic pain Category: Medical (3) Sacroiliac joint pain: Code(s): M53.3 - Sacrococcygeal disorders, not elsewhere classified Category: Medical (4) Chronic abdominal pain: Code(s): R10.9 - Unspecified abdominal pain; G89.29 - Other chronic pain Category: Medical Plan Schedule Bilateral Therapeutic Sacroiliac Joint Injections with local and fluoroscopy Expectations, risks and benefits were reviewed. Patient is aware she will be contacted to schedule this procedure. If no pain relief, we will repeat lumbar medial branch injections with to assess efficacy and determine eligibility for subsequent radiofrequency ablation procedures. Further evaluation by a specialist for Alpha-1 antitrypsin deficiency is pending, with an appointment scheduled with Dr. Wm Worthy. The abdominal MRI and blood work results need to be reviewed by the tissue rewinder to rule out any acute issues. The patient is advised to follow up with her tissue rewinder regarding the abdominal pain and nausea, especially since starting Wegovy. All questions and concerns have been answered and patient agreed with the plan. Follow up after injections and sooner as needed. Patient was informed and verbally consented to the use of an ambient scribe for clinic note documentation during this visit. Coding Level of Care Code Est Pt Level 4 (70208) Complex EM visit Add On G2211 Diagnoses Lumbosacral spondylosis M47.817 Chronic back pain M54.9; G89.29 Sacroiliac joint pain M53.3 Chronic abdominal pain R10.9; G89.29
[2024-12-21 08:35] VITALS: BP 144/77; PULSE 77; O2SAT 90; BMI 35.0
--- OUTSIDE RECORDS SUMMARY | 2024-12-21 08:36 | XMS_ITS | Clinical Summary ---
Author Organization [facility], Address [address] [address] Phone Care Team Providers Care Jail Officer Name Role Phone Katarina Nails Primary Care Provider [phone] Allergies Active Allergy Reactions Criticality Noted Date [...] MOUTH DAILY DISSOLVE IN WATER BEFORE TAKING, [facility]/pharmacy #[id number] 01/24/2019 Active dicyclomine (BENTYL) 10 MG capsule Take 1 capsule by mouth 01/28/2022 Active Cholecalciferol (Vitamin D3) 1.25 MG (11872 UT) capsule Take by mouth 06/09/2018 Act [...] Visit [facility], [address] [place] [address] Gonsalo Antony MD [address] [place] [address] Health Maintenance Due Date Last Done Comments Breast Cancer Screening 1962 Pneumococcal Vaccine: 50+ Ye ars (1 of 2 - PCV) 1981 Colorectal Cancer Screening: Annual FOBT 2011 Colorectal Cancer Screening: Colonoscopy 2011 Colorectal Cancer Screening: Sigmoidoscopy 2011 Hepatitis B Vaccine (1 of 3 - Risk 3-dose series) 2022 Influenza Vaccine Completed 05/03/2024, , 06/11/2021, Additional history exists [place] [address] [place] [address] Medicare Care Teams Jail Officer Relationship Specialty Start Date End Date Katarina Nails FNP [address], [address] [place] [address] PCP - General 05/07/24
== END 2024-12-21 08:54 | disposition home or self-care (01) ==
LOC: HO.PMC 08:27
PROVIDERS: PCP Nurse Practitioner Family; Visit Provider Nurse Practitioner Family
DX: M47.817 Spondylosis without myelopathy or radiculopathy, lumbosacral region (principal); M54.9 Dorsalgia, unspecified; G89.29 Other chronic pain; M53.3 Sacrococcygeal disorders, not elsewhere classified; R10.9 Unspecified abdominal pain
CPT/HCPCS: 99214; G2211

== ENCOUNTER → 2024-12-21 08:26 | Outpatient (BNVA) | payer OTHER, MEDICARE, SELFPAY | PROVIDERS: PCP Nurse Practitioner Family; Visit Provider Nurse Practitioner Family | DX: M47.817 Spondylosis without myelopathy or radiculopathy, lumbosacral region (principal); M54.9 Dorsalgia, unspecified; M53.3 Sacrococcygeal disorders, not elsewhere classified; G89.29 Other chronic pain; R10.9 Unspecified abdominal pain | CPT/HCPCS: 99212 ==

== ENCOUNTER 2025-01-17 06:34 | Outpatient (REF) | payer OTHER, MEDICARE, SELFPAY ==
--- NOTE | ~2025-01-17 | FL_ITS ---
EXAMINATION: FL GUIDANCE ONLY HISTORY: M53.3 - Sacrococcygeal disorders, not elsewhere classified COMPARISON: None available. TECHNIQUE: Fluoroscopy time: 0.1 minutes. Cumulative Dose: 3.13 mGy. DAP: 0.0199 mGym2 Images: 3. FINDINGS: Fluoroscopic spot films of the pelvis demonstrate needles in the regions of the bilateral sacroiliac joints. FL/FL guidance in treatment room IMPRESSION: Fluoroscopy during procedure. Please see procedure report for additional information. Electronically signed by: Ignacio Carlos MD 01/17/2025 03:43 PM EDT
== END 2025-01-17 06:35 | disposition home or self-care (01) ==
LOC: CF 06:34
PROVIDERS: Visit Provider Internal Medicine
DX: M53.3 Sacrococcygeal disorders, not elsewhere classified (principal)
CPT/HCPCS: 27096; J2003; J2795; J3301

== ENCOUNTER 2025-01-17 11:02 | Outpatient (AMB) | payer OTHER, MEDICARE, SELFPAY ==
[2025-01-17 11:39] VITALS: BP 137/80; PULSE 80; RESP 16; O2SAT 94; BMI 35.0
--- NOTE | 2025-01-17 11:39 | A.OFFVIS_ITS ---
Vital Signs 01/17/25 11:39 01/17/25 11:43 Height 5 ft 5 ft Weight 179 lb 179 lb BMI 35.0 35.0 BP 137/80 125/82 Blood Pressure Location Lt radial Lt radial Position Sitting Sitting Respiration 16 16 Pulse 80 82 Pulse Source Pulse Oximeter Pulse Oximeter Pulse Oximetry (%) 94 90 L Oxygen Delivery Method Room Air Room Air Intake Visit Reasons: Cecil theraputic SIJ inj/ ativan Allergies coconut Allergy (Verified 12/21/24 08:36) Rash Penicillins Allergy (Verified 12/21/24 08:36) Hives latex Adverse Reaction (Verified 12/21/24 08:36) Unknown seroquil Allergy (Uncoded 12/19/24 08:18) Seizure HPI HPI Cecil theraputic SIJ inj/ ativan: Details: Patient presents for scheduled procedure. Denies any recent cough, cold, infection, fever or other significant changes in medical history since last office visit. 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 COPD (chronic obstructive pulmonary disease) Surgical History Hx of cholecystectomy H/O parathyroidectomy History of pancreatectomy S/P partial hysterectomy H/O hernia repair Hx of appendectomy Family History Sister Ovarian cancer Mother Skin cancer Social History Alcohol intake: never Patient Tobacco Use Status: Never used Tobacco Current occupational status: disabled Physical Exam Vital Signs: Last Vital Signs Pulse 82 01/17/25 11:43 Resp 16 01/17/25 11:43 BP 125/82 01/17/25 11:43 Pulse Ox 90 L 01/17/25 11:43 Oxygen Delivery Method Room Air 01/17/25 11:43 BMI result Body Mass Index 35.0 Office Procedures AMB Joint Injection/Aspiration Joint Injection/Aspiration Details: Sacroiliac Joint Injection, Bilateral The procedure, its benefits, and its risks were explained and written informed consent was obtained from the patient. Immediately prior to starting the procedure, a time-out safety check was conducted. The patient's identification, procedure name, procedure site, and procedure laterality were confirmed with the patient. ? Patient was placed prone on the fluoroscopy table and the lumbosacral area was prepped using ChloraPrep and draped with sterile draped in standard fashion. The C-arm was rotated in a contralateral oblique fashion until the medial border of the iliac crest no longer foreshadowed the posterior sacroiliac joint line. The skin and subcutaneous tissue was anesthetized using 1 mL of 0.75% plain lidocaine with 1.5-inch 25-gauge needle in the middle region of the joint line.? A 3.5-inch 22-gauge spinal needle with small bend on the tip was slowly advanced towards the joint line, coaxial to the x-ray beam. Once bony content was obtained, the needle was easily slid into the intra-articular space.? Intra- articular needle position was confirmed using lateral fluoroscopy.? A total volume of 2.5mL of solution containing 40 mg trimcinilone and rest 0.5% of ropivacaine was injected intra-articularly. The stylet was reinserted and needle was removed. The same procedure was repeated on the other side. The patient tolerated the procedure well. Patient denied any lower extremity weakness or numbness. Patient was observed for 30 min and was discharged after fulfilling the standard discharge criteria. Coding 27711 - Sacroiliac (Bilateral) Procedure code (CPT) selection complete Assessment & Plan Assessment & Plan (1) Sacroiliac joint pain: Code(s): M53.3 - Sacrococcygeal disorders, not elsewhere classified Category: Medical Plan Patient is status post bilateral sacroiliac joint injections. Patient tolerated procedure well and was discharged home in stable condition with discharge instructions. All questions were answered. We will follow-up via telephone or in clinic to assess response to therapy. A follow-up appointment was made during today's visit. Orders: Orders FL guidance in treatment room 01/17/25 M53.3 - Sacrococcygeal disorders, not elsewhere classified Medications: New lorazepam (Ativan) Take 30 minutes prior to arrival to procedure 1 mg PO ONCE 1 tab 0RF anxiety Coding Level of Care Code Procedure Only Diagnoses Sacroiliac joint pain M53.3 CPT Codes Coding - Joint 9: 14093 - Sacroiliac ([id number])
[2025-01-17 11:43] VITALS: BP 125/82; PULSE 82; RESP 16; O2SAT 90; BMI 35.0
--- OUTSIDE RECORDS SUMMARY | 2025-01-17 11:52 | XMS_ITS | Clinical Summary ---
Author Organization [facility], Address [address] [place] [address] Phone Care Team Providers Care Liner Man Name Role Phone Katarina Nails Primary Care [...] MOUTH DAILY DISSOLVE IN WATER BEFORE TAKING, [facility]/pharmacy #[id number] 01/24/2019 Active dicyclomine (BENTYL) 10 MG capsule Take 1 capsule by mouth 01/28/2022 Active Cholecalciferol (Vitamin D3) 1.25 MG (70186 UT) capsule Take by mouth 06/09/2018 Act [...] Visit [facility], [address] [place] [address] Gonsalo Antony MD [address] [place] [address] Health Maintenance Due Date Last Done Comments Breast Cancer Screening 1962 Pneumococcal Vaccine: 50+ Ye ars (1 of 2 - PCV) 1981 Colorectal Cancer Screening: Annual FOBT 2011 Colorectal Cancer Screening: Colonoscopy 2011 Colorectal Cancer Screening: Sigmoidoscopy 2011 Hepatitis B Vaccine (1 of 3 - Risk 3-dose series) 2022 Influenza Vaccine (#1) 2025 4, 04/14/2022, 06/11/2021, Additional history exists Insurance [facility] Medicare Care Teams Liner Man Relationship Specialty Start Date End Date Katarina Nails FNP [address], [address] [place] [address] PCP - General 05/07/24
--- OUTSIDE RECORDS SUMMARY | 2025-01-17 11:52 | XMS_ITS | Clinical Summary ---
Author Organization [facility] Address [address] [place] [address] Care Team Providers Care Assistant Paralegal Name Role Phone Gabi Valadez MD Primary Care Provider [phone] Medications amLODIPine (NORVASC) 5 mg tablet Take 1 tablet (5 mg total) by mouth daily. 3 Active ARIPiprazole (ABILIFY) 10 mg tablet Take 1 tablet (10 mg total) by mouth at bedtime. Active atenoloL (TENORMIN) 50 mg tablet Take 1 tablet (50 mg total) by mouth daily. Active cloNIDine (CATAPRES) 0.1 mg tablet Take 1 tablet (0.1 mg total) by mouth 2 times daily. Active famotidine (PEPCID) 40 mg tablet 3 Active Trelegy Ellipta 200-62.5-25 mcg inhaler Inhale 1 puff (200 mcg total) by mouth 1 (one) time each day. Active lamoTRIgine (LaMICtal) 150 mg tablet Take 1 tablet (150 mg total) by mouth 1 (one) time each day in the morning. Active lamoTRIgine (LaMICtal) 200 mg tablet Take 1 tablet (200 mg total) by mouth. at bedtime 5 Active Linzess 145 mcg capsule 3 Active losartan (COZAAR) 100 mg tablet 3 Active mirtazapine (REMERON) 15 mg tablet Take 1 tablet (15 mg total) by mouth at bedtime. Active Wegovy 0.25 mg/0.5 mL injection pen INJECT 0.25 MG BY SUBCUTANEOUS ROUTE ONCE WEEKLY ON THE SAME DAY OF EACH WEEK 5 Active clonazePAM (KlonoPIN) 1 mg tablet Take 1 tablet (1 mg total) by mouth 3 (three) times a day if needed. for anxiety Max Daily Amount: 3 mg Active albuterol HFA (PROAIR HFA ; PROVENTIL HFA ; VENTOLIN HFA) 90 mcg/actuation inhaler INHALE 2 INHALATIONS VIA SPACER FOUR TIMES DAILY NEEDED FOR WHEEZING OR SHORTNESS OF BREATH Active albuterol 2.5 mg /3 mL (0.083 %) nebulizer solution INHALE 3 ML VIA NEBULIZER EVERY 6 HOURS NEEDED FOR WHEEZING 5 Active sertraline (ZOLOFT) 100 mg tablet Take 2 tablets (200 mg total) by mouth 1 (one) time each day. As Directed Active Active Problems No known active problems Encounters Date Type Department Care Team Description 12/31/2024 Telephone [facility] [address] [place] [address] Wm Worthy DO 12/27/2024 10:40 AM EDT Office Visit [facility] [address] [place] [address] Wm Worthy, DO Liver cirrhosis secondary to GARCIA (CMS/HCC V24, [facility]/HCC V28) (Primary Dx); AAT (dayue-0-kbbvgkvvmb n) deficiency (CMS/HCC V24, CMS/HCC V28); Low plasma alpha-1 antitrypsin (CMS/HCC V24, CMS/HCC V28); Metabolic syndrome; Cannabinoid hyperemesis syndrome; Generalized abdominal pain from Last 3 Months Surgical History Surgery Date Site/Laterality Comments HERNIA REPAIR PROCEDURE: HISTORICAL HERNIA REPAIR/ING; COMMENT: Right inguinal, [facility] , age 20 APPENDECTOMY PROCEDURE: HISTORICAL APPENDECTOMY HYSTERECTOMY PROCEDURE: HISTORICAL HYSTERECTOMY CHOLECYSTECTOMY -2008 PROCEDURE: [place] CHOLECYSTECTOMY Medical History Medical History Date Comments Depressive disorder, not els ewhere classified DX:Depressive disorder, not elsewhere classified Bipolar disorder (CMS/HCC V2 4, CMS/HCC V28) DX:Bipolar disorder ([facility]); C OMMENT: Dxd 6 years ago.Hospitalized 2006 for suicide attempt Esophageal reflux 06/28/2006 DX:Esophageal reflux Family History Medical History Relation Name Comments Other cancer Maternal Grandfather larynx cancer Other: cancer Maternal Grandmother stomac h Heart attack Paternal Grandfather Breast cancer Paternal Grandmother Other cancer Sister 1 ovarian cancer Relation Name Status Comments Daughter Alive age 17 *Clairis e* in good health; appedix removed Father (Age 54) liver prob lems, karposi sarcoma Maternal Grandfather Larynx cancer Maternal Grandmother Stomach cancer Mother (Age 65) alcoholism Paternal Grandfather ND Paternal Grandmother Breast cancer Sister 1 Sister 2 Alive 2 sisters, 59 y ear old w/ ovarian cancer, 60 year old well Son Alive age 11 *Toran* in good health Social History Tobacco Use Types Packs/Day Years Used Date Smoking Tobacco: Never Smokeless Tobacco: Never Alcohol Use Standard Drinks/Week Comments Yes 0 (1 standard drink = 0.6 oz pur e alcohol) Comments Unknown Sex and Gender Information Value Date Recorded Sex Assigned at Not on file Legal Sex Female 9:01 AM EST Gender Identity Not on file Sexual Orientation Not on file Obstetrics History Last Filed Vital Signs Vital Sign Reading Time Taken Comments Blood Pressure 118/64 12/27/2024 10:42 AM EDT Pulse 87 12/27/2024 10:42 AM EDT Temperature - - Respiratory Rate - - Oxygen Saturation 97% 12/27/2024 10:42 AM EDT Inhaled Oxygen Concentration - - Weight 80.3 kg (177 lb) 12/27/2024 10:42 AM EDT Height 152.4 cm (5') 12/27/2024 10:42 AM EDT Body Mass Index 34.57 12/27/2024 10:42 AM EDT Plan of Treatment Health Maintenance Due Date Last Done Comments Hepatitis A Vaccines (1 of 2 - Risk 2-dose series) 1981 Pneumococcal Vaccine: 50+ Years (1 of 2 - PCV) 1981 Cervical Cancer Screening: Pap Smear 1983 Zoster Vaccines (2 of 2) 06/05/2020 04/10/2020 Breast Cancer Screening 10/18/2020 10/18/2018 Hepatitis B Vaccines (1 of 3 - Risk 3-dose series) 2022 RSV Immunization Adult Patients (1 - Risk 60-74 years 1-dose series) 2022 COVID-19 Vaccine ( - season) 2024 10/18/2020, 09/26/2020 Depression Screening 06/27/2024 Cholesterol Screening (Lipid Panel) 12/24/2024 Colorectal Cancer Screening: Colonoscopy 12/24/2024 HIV Screening 12/24/2024 Hepatitis C Screening 12/24/2024 Medicare Annual Wellness Visit 12/24/2024 Social Influencers of Health Screening 12/24/2024 Hypertension/CHF/CAD Annual BMP Blood Test 12/25/2024 Influenza Vaccine (#1) 2025 2, 06/11/2021, 04/10/2020, Additional history exists DTaP,Tdap,and Td Vaccines (3 - Td or Tdap) 06/09/2028 06/09/2018, 03/24/2016 HIB Vaccines Aged Out No longer eligi ble based on patient's age to complete this topic HPV Vaccines Aged Out No longer eligi ble based on patient's age to complete this topic IPV Vaccines Aged Out No longer eligi ble based on patient's age to complete this topic MMR Vaccines Aged Out No longer eligi ble based on patient's age to complete this topic Meningococcal ACWY Vaccine Aged Out N o longer eligible based on patient's age to complete this topic Meningococcal B Vaccine Aged Out No l onger eligible based on patient's age to complete this topic RSV Immunization Patients Under 20 months Aged Out No longer eligible based on patient's age to complete this topic Varicella Vaccines Aged Out No longer eligible based on patient's age to complete this topic Procedures Procedure Name Priority Date/Time Associated Diagnosis Comments US ABDOMEN LIMITED Routine 01/09/2025 3: 45 PM EDT Liver cirrhosis secondary to GARCIA (CMS/HCC V24, CMS/HCC V28) from Last 3 Months Results * US Abdomen Limited (01/09/2025 3:45 PM EDT) Anatomical Region Laterality Modality Body Ultrasound us Wm Worthy DO IMG US PROCEDURES Final Resu lt from Last 3 Months Insurance MEDICARE [facility] Care Teams Assistant Paralegal Relationship Specialty Start Date End Date Gabi Valadez MD [address] [place] [address] [place] [address] PCP - General Internal Medicine 08/29/17
--- OUTSIDE RECORDS SUMMARY | 2025-01-17 11:52 | XMS_ITS | Clinical Summary ---
Author Organization [employer] Counts Include [facility] Address [address] [facility] [address] [place] [address] Phone Care Team Providers Care Account Management Assistant Name Role Phone Vilma Newton MD Primary Care Provider [phone] Allergies Active Allergy Reactions Criticality Noted Date Comments Latex Hives 10/11/2018 Penicillins Fever 10/11/2018 seizure Quetiapine Seizures 10/24/2018 Medications ARIPiprazole (ABILIFY) 10 MG tablet Take 10 mg by mouth daily. Active atenolol (TENORMIN) 50 mg tablet Take 50 mg by mouth daily. Active cholecalciferol (VITAMIN D3) 2,000 unit tablet Take 1,000 Units by mouth daily. Active clonazePAM (KLONOPIN) 1 MG tablet Take 1 mg by mouth 2 (two) times a day as needed for anxiety. Active cloNIDine HCl (CATAPRES) 0.1 MG tablet Take 0.1 mg by mouth 2 (two) times a day. Active cyclobenzaprine (FLEXERIL) 5 MG tablet Take 5 mg by mouth 3 (three) times a day as needed for muscle spasms. Active divalproex (DEPAKOTE) [address] tablet Take 500 mg by mouth 3 (three) times a day. Active lamoTRIgine (LAMICTAL) 150 MG tablet Take 150 mg by mouth daily. Active meloxicam (MOBIC) 7.5 MG tablet Take 7.5 mg by mouth daily. Active mirtazapine (REMERON) 15 MG tablet Take 15 mg by mouth nightly at bedtime. Active sertraline (ZOLOFT) 100 MG tablet Take 100 mg by mouth daily. Active albuterol 90 mcg/actuation inhaler USE 2 INHALATIONS FOUR TIMES A DAY NEEDED FOR WHEEZING OR SHORTNESS OF BREATH (WITH SPACER) 3 Active amLODIPine (NORVASC) 5 MG tablet Take 1 tablet by mouth every morning. 3 Active dicyclomine (BENTYL) 10 MG capsule Take by mouth. 3 Active famotidine (PEPCID) 40 MG tablet 3 Active TRELEGY ELLIPTA 200-62.5-25 mcg inhaler 3 Active LINZESS 145 mcg Cap 3 Active losartan (COZAAR) 100 MG tablet 3 Active Active Problems No known active problems Family History Medical History Relation Comments Colon cancer Maternal Aunt Esophageal cancer Maternal Grandfather Colon cancer Paternal Uncle Relation Status Comments Maternal Aunt Maternal Grandfather Paternal Uncle Social History Tobacco Use Types Packs/Day Years Used Date Smoking Tobacco: Never Smokeless Tobacco: Never Alcohol Use Standard Drinks/Week Comments Never 0 (1 standard drink = 0.6 oz pur e alcohol) Education Answer Date Recorded Are you interested in more education? Not on rosalia e 10/22/2022 Are you concerned about learning? Not on file 10/22/2022 No 10/22/2022 No 10/22/2022 Digital Access Answer Date Recorded No 11/20/2022 No 11/20/2022 Reliable internet access at home? Not on file 11/20/2022 Device with a working camera? Not on file Comments No Sex and Gender Information Value Date Recorded Sex Assigned at Not on file Legal Sex Female 11:10 AM EDT Gender Identity Not on file Sexual Orientation Not on file Last Filed Vital Signs Vital Sign Reading Time Taken Comments Blood Pressure 158/85 03/17/2023 2:25 PM EDT Pulse 76 03/17/2023 2:25 PM EDT Temperature 36.8 C (98.2 F) 03/17/2023 2:25 PM EDT Respiratory Rate 18 10/26/2018 10:0 0 AM EDT Oxygen Saturation 95% 03/17/2023 2:25 PM EDT Inhaled Oxygen Concentration - - Weight 79.3 kg (174 lb 14.4 oz) 03/17/2023 2:22 PM EDT Height 152.4 cm (5') 03/17/2023 2:22 PM EDT Body Mass Index 34.16 03/17/2023 2:22 PM EDT Plan of Treatment Health Maintenance Due Date Last Done Comments LIPID PANEL 1960 VALPROIC ACID (DEPAKENE) LEVEL 1960 DEPRESSION SCREENING 1974 HEPATITIS C SCREENING 02/09/1980 PAP SMEAR 1983 COLOGUARD 2007 FIT TEST 2007 FOBT 2007 SIGMOIDOSCOPY 2007 VIRTUAL COLONOSCOPY 2007 PNEUMOCOCCAL VACCINES (50+ years) (1 of 1 - PCV) 02/09/2012 COLONOSCOPY 04/28/2019 10/26/2018, 10/24/2018 COLORECTAL CANCER SCREENING 04/28/2019 ZOSTER VACCINES (2 of 2) 06/05/2020 04/10/2020 MAMMOGRAM 10/18/2020 10/18/2018, 09/26, 05/28/2015, Additional history exists COVID-19 VACCINE (2023- season) 2024 10/18/2020, 09/26/2020 CREATININE LEVEL 03/17/2024 03/17/2023 POTASSIUM LEVEL 03/17/2024 03/17/2023 SCREENING FOR DIABETES 03/17/2026 03/17/2023, 2022 Adult Td,Tdap Booster 06/09/2028 06/09/2018, 016 RSV VACCINE (1 - 1-dose 75+ series) 2037 HIV ONE-TIME SCREENING (18-65 YEARS) Completed 10/11/2018 SMOKING STATUS SCREENING (Once After 26 Yrs) Completed 03/17/2023 HEPATITIS A VACCINES Aged Out No long er eligible based on patient's age to complete this topic HIB VACCINES Aged Out No longer eligi ble based on patient's age to complete this topic MENINGOCOCCAL VACCINES (ACWY) Aged Out No longer eligible based on patient's age to complete this topic MENINGOCOCCAL VACCINES (B) Aged Out N o longer eligible based on patient's age to complete this topic Medical Devices Not on file Procedures Procedure Name Priority Date/Time Associated Diagnosis Comments BASIC METABOLIC PANEL Routine 03/17/2023 3:17 PM EDT Chronic hepatitis C virus infection Liver cirrhosis secondary to GARCIA ENDOSCOPY, COLON 10/26/2018 7:54 AM EDT BI MAMMOGRAM DIAGNOSTIC WITH TOMOSYNTHESIS WITH CAD (BILATERAL) Routine 10/18/2018 8:08 AM EDT Lymphadenopathy from Last 3 Months or Most Recently Relevant to Health Maintenance Results * Basic metabolic panel (03/17/2023 3:17 PM EDT) SODIUM 141 136 - 145 mmol/L [facility] POTASSIUM 3.9 3.4 - 5.1 mmol/L [facility] CHLORIDE 103 98 - 107 mmol/L [facility] CO2 24 22 - 31 mmol/L [facility] BUN 14 6 - 23 mg/dL [facility] CREATININE 0.89 0.50 - 1.20 mg/dL [facility] GLUCOSE 87 70 - 100 mg/dL [facility] CALCIUM 10.1 8.8 - 10.7 mg/dL [facility] EGFR 74 >59 mL/min/1.7 3m2 [facility] Comment:Estimated glomerular filtration rate calculated using the CKD-EPI refit equation. ANION GAP 14 7 - 17 mmol/L [facility] 03/17/2023 3:17 PM EDT 03/17/2023 3:36 PM EDT us Josiah Valente MD, MPH LAB BLOOD ORDERABLES Shira l Result [facility] [address] [place] [id number] * ENDOSCOPY, COLON (10/26/2018 7:54 AM EDT) 10/26/2018 7:54 AM EDT Narrative Transcriptions Reji Paz MD, PhD - 10/26/2018 7:54 AM EDT 850 Gastroenterology Patient Name: Latricia Villagomez Procedure Date: 10/26/2018 7:54 AM Date of : 1960 Age: 58 Room: 05 Gender: Female Note Status: Finalized Attending MD: REJI PAZ MD Procedure: Colonoscopy Indications: Personal history of colonic polyps Patient Profile: This is a 58 year old female. Refer to note in patient chart for documentation of history and physical. Providers: REJI PAZ MD, Jolene Landers RN Referring MD: MAT SMILEY M.D. (Referring ), SCOTTY SINGH MD (Referring MD) Medicines: Fentanyl 100 micrograms IV, Midazolam 4 mg IV Complications: No immediate complications. Procedure: Pre-Anesthesia Assessment: - Prior to the procedure, a History and Physical was performed, and patient medications, allergies and sensitivities were reviewed. The patient's tolerance of previous anesthesia was reviewed. - The risks and benefits of the procedure and the sedation options and risks were discussed with the patient. All questions were answered and informed consent was obtained. - ASA Grade Assessment: II - A patient with mild systemic disease. After informed consent was obtained, the scope was passed under direct vision. Throughout the procedure, the patient's blood pressure, pulse, and oxygen saturations were monitored continuously. The Colonoscope was introduced through the anus with the intention of advancing to the ileum. The scope was advanced to the transverse colon before the procedure was aborted. Medications were given. The colonoscopy was performed without difficulty. The patient tolerated the procedure well. The quality of the bowel preparation was poor. Findings: Multiple localized bleeding erosions were found in the sigmoid colon. Stigmata of recent bleeding were present. Biopsies were taken with a cold forceps for histology. Estimated blood loss was minimal. A few scattered non-bleeding erosions were found in the rectum. No stigmata of recent bleeding were seen. Biopsies were taken with a cold forceps for histology. Estimated blood loss was minimal. A large, non-bleeding polyp was found in the rectum. The polyp was sessile. Biopsies were taken with a cold forceps for histology. Estimated blood loss was minimal. A large amount of stool was found in the entire colon, precluding visualization. Impression: - Preparation of the colon was poor. - Multiple erosions in the sigmoid colon. Biopsied. - A few erosions in the rectum. Biopsied. - One large, non-bleeding polyp in the rectum. Biopsied. - Stool in the entire examined colon. Moderate Sedation: Moderate (conscious) sedation was administered by the endoscopy nurse and supervised by the endoscopist. The following parameters were monitored: oxygen saturation, heart rate, blood pressure, respiratory rate, EKG, adequacy of pulmonary ventilation, and response to care. Total physician intraservice time was 20 minutes. Recommendation: - Await pathology results. Attending Participation: I personally performed the entire procedure. REJI PAZ MD 10/26/2018 9:20:12 AM Number of Addenda: 0 Note Initiated On: 10/26/2018 7:54 AM Mat Smiley MD GI PROCEDURE ORDERABLES Fi nal Result * BI MAMMOGRAM DIAGNOSTIC WITH TOMOSYNTHESIS WITH CAD (BILATERAL) (10/18/2018 8:08 AM EDT) Anatomical Region Laterality Modality Breast Left, Breast Right, Breast Bilateral Bila teral Mammography 10/18/2018 8:08 AM EDT Addenda Addendum by Galina Gonzalez MD on 10/24/2018 3:46 PM EDT Prior outside imaging is now available in PACS. There is no significant interval change. There are no suspicious findings. Routine followup with screening mammography is recommended. There are no changes to the impression or recommendation. OVERALL ASSESSMENT - Category 1 NEGATIVE. Communication of results: A letter will be mailed to the patient informing her of the updated interpretation and follow-up recommendation. END OF ADDENDUM Impressions 10/18/2018 8:27 AM EDT Left Breast: Category 1. Negative, no mammographic evidence of malignancy. Further management of any persistent palpable findings should be based on the clinical level of concern. Negative imaging findings should not preclude biopsy of any clinically suspicious palpable finding. Recommendation: Routine screening in 1 year. Right Breast: Category 1. Negative, no mammographic evidence of malignancy. Recommendation: Routine screening in 1 year. Results were discussed with the patient and she was provided with a written summary at the time of the study. OVERALL ASSESSMENT -- BI-RADS 1 NEGATIVE Narrative 10/18/2018 8:27 AM EDT Reason for exam (per EHR order): *Palpable mass, prior mammo negative (Age > 40y) Additional clinical information obtained from the EHR: Questioned palpable finding in the left breast. TECHNIQUE: Digital Mammography and tomosynthesis were used to obtain images. Computer Aided Detection was used to aid in interpretation and volumetric breast density assessment may have been used as an aid in evaluating breast density. Real-time ultrasound was performed using a high-frequency linear array transducer. COMPARISON: No prior mammograms are available for comparison at the time of dictation. Breast Composition: almost entirely fatty. FINDINGS: Left Breast: No significant masses, suspicious calcifications, or other abnormalities are seen. Targeted ultrasound was performed at the site of palpable abnormality as indicated by the patient in the upper outer quadrant. No sonographic abnormality is present. Right Breast: No significant masses, suspicious calcifications, or other abnormalities are seen. Procedure Note Galina Gonzalez MD - 10/18/2018 Reason for exam (per EHR order): *Palpable mass, prior mammo negative (Age > 40y) Additional clinical information obtained from the EHR: Questioned palpable finding in the left breast. TECHNIQUE: Digital Mammography and tomosynthesis were used to obtain images. Computer Aided Detection was used to aid in interpretation and volumetric breast density assessment may have been used as an aid in evaluating breast density. Real-time ultrasound was performed using a high-frequency linear array transducer. COMPARISON: No prior mammograms are available for comparison at the time of dictation. Breast Composition: almost entirely fatty. FINDINGS: Left Breast: No significant masses, suspicious calcifications, or other abnormalities are seen. Targeted ultrasound was performed at the site of palpable abnormality as indicated by the patient in the upper outer quadrant. No sonographic abnormality is present. Right Breast: No significant masses, suspicious calcifications, or other abnormalities are seen. IMPRESSION: Left Breast: Category 1. Negative, no mammographic evidence of malignancy. Further management of any persistent palpable findings should be based on the clinical level of concern. Negative imaging findings should not preclude biopsy of any clinically suspicious palpable finding. Recommendation: Routine screening in 1 year. Right Breast: Category 1. Negative, no mammographic evidence of malignancy. Recommendation: Routine screening in 1 year. Results were discussed with the patient and she was provided with a written summary at the time of the study. OVERALL ASSESSMENT -- BI-RADS 1 NEGATIVE us Mat Smiley MD IMG MG EXAMS Edited Res ult - Final from Last 3 Months or Most Recently Relevant to Health Maintenance Insurance MEDICARE PART A & B [employer] P[employer] MEDICARE PART A & B [employer] PPO Member Subscriber Plan / Payer (Ef fective 2002-Present) Name:Latricia Villagomez Relation to Subscriber:Spouse Name:LEONIDAS VILLAGOMEZ Date of :1964 (Home) [address] [facility] [place] [address] Payer ID:[id number] (NA) Type:PPO Address: [address] [place] [id number] [address] [facility] [place] [address] [facility] [place] [facility] [address] MEDICARE PART A & B [employer] PPO MEDICARE PART A & B [employer] PPO [place] [facility] [address] MEDICARE PART A & B ON LICENSE OF [facility] PPO [place] [facility] [address] MEDICARE PART A & B [employer] PPO Member Subscriber Plan / Payer ( fective 2002-Present) Name:Latricia Villagomez Relation to Subscriber:Spouse Name:LEONIDAS VILLAGOMEZ Date of :1964 (Home) Address: [place] [address] Payer ID:[id number] (NAIC) Type:PPO Address: [address] [place] [id number] [place] [address] MEDICARE PART A & B [employer] PPO MEDICARE PART A & B ON LICENSE OF [facility] PPO Care Teams Account Management Assistant Relationship Specialty Start Date End Date Vilma Newton MD [address] [place] [address] PCP - General Internal Medicine 11/26/21 Additional Source Comments The information contained in this document represents components of the legal health record. It is not the complete legal health record.[facility]
== END 2025-01-17 12:38 | disposition home or self-care (01) ==
LOC: HO.PMCPRC 11:02
PROVIDERS: PCP Nurse Practitioner Family; Visit Provider Internal Medicine
DX: M53.3 Sacrococcygeal disorders, not elsewhere classified (principal)
CPT/HCPCS: 27096

== ENCOUNTER 2025-02-07 09:30 | Outpatient (AMB) | payer OTHER, MEDICARE, SELFPAY ==
--- NOTE | 2025-02-07 09:35 | MHC.OFFVIS ---
Vital Signs 02/07/25 09:39 Height 5 ft Weight 179 lb BMI 35.0 BP 123/74 Blood Pressure Location Lt brachial Position Sitting Pulse 75 Pulse Source Pulse Oximeter Pulse Oximetry (%) 96 Oxygen Delivery Method Nasal Cannula Oxygen Flow Rate 2 Intake Visit Reasons: s/p [place] theraputic SIJ inj Intake Note: Pain today 11/03 District Administrative Assistant Required: No Accompanied by: Family/Other Allergies coconut Allergy (Verified 02/07/25 09:40) Rash Penicillins Allergy (Verified 02/07/25 09:40) Hives latex Adverse Reaction (Verified 02/07/25 09:40) Unknown seroquil Allergy (Uncoded 12/19/24 08:18) Seizure HPI Comments Details: The patient is a 64-year-old female presenting with sacroiliac joint dysfunction and pain. She received bilateral therapeutic sacroiliac joint injections on January 17, which have significantly improved her back and buttock pain. Patient reports better mobility and functioning since injections. The patient also reports chronic abdominal pain localized around the belly button, which is not exacerbated by coughing or sneezing. She reports being monitored for hernia. She denies any recent changes or interventions for this issue. Patient also reports right flank discomfort for which she has been utilizing topical capsaicin cream with partial relief. Additionally, the patient is undergoing weight loss management with Wegovy, which has resulted in a recent 10-pound weight loss. She experiences nausea as a side effect and had a few mechanical falls due to dizziness which she reported to her PCP. Patient is also followed by Dr. Wm Worthy for the evaluation of Alpha-1 antitrypsin deficiency. Denies any recent cough, cold, infection, fever or any significant changes in medical history since last office visit. Past Procedures: 01/17/25: Bilateral Therapeutic SIJ injections-100% ongoing pain relief 10/18/24: Bilateral Diagnostic L3-L4 DR L5 MBB-60% pain relief PRIOR: The patient is a 64-year-old female presenting with chronic low back pain and abdominal pain. Her chronic low back pain is characterized by facet arthritis and degenerative disc disease at L4-L5, leading to significant impact on her daily functionality and requiring close management. Despite current use of marijuana edibles for pain relief, it continues to interfere with typical activities and occasionally poses difficulties in attending appointments. Unfortunately, her insurance denied diagnostic lumbar medial branch blocks. Her chronic low back pain is persistent and predominately axial in nature. She denies radiating leg pain, numbness, tingling, bladder or bowel dysfunction or saddle anesthesia. The patient also experiences significant abdominal pain, which she rates as being more severe than her back pain. This abdominal pain has persisted with a significant history of pancreatitis and pancreatectomy acknowledged, requiring planned GI evaluations including potential future colonoscopy and endoscopy per patient. Due to scheduling constraints, GI follow up is not anticipated until October. Her condition is further complicated by dietary restrictions due to pain and a past pancreas condition. She has to take marijuana edibles prior each meal. She feels her abdomen has been more distended and she plans to seek evaluation for this in local ER. Additional concerns include explorations into hepatic pain and potential kidney and pulmonary issues, with mild lower lobe pulmonary fibrosis found on recent imaging. Current management focuses on ruling out any severe underlying conditions and addressing multifactorial pain causes through coordinated care. Patient denies any recent cough, cold, infection, fever, infection, tumor, fracture, cord compression or other significant changes in medical history since last office visit. - Onset: Chronic and ongoing. - Quality and Character: Constant, aching and dull, sharp pain. - Primary Location: Low back, with pain radiating to buttocks particularly during movements. - Areas of Radiation: Sacral, buttocks areas - Aggravating Factors: Bending over, sitting down, standing up from sitting, and getting out of bed. - Relieving Factors: Use of marijuana edibles. Heat therapy, rest, occasionally Naproxen - Interference: Affects daily activities, including sleep, and occasionally results in sharp pains while seated. - Affect: Significant impact on quality of life with limitations on daily activities; the patient reports good sleep with medication. - Analgesia: Current pain management includes marijuana edibles taken multiple times a day. - Adverse Effects: Not explicitly detailed; reliance on medication. - Activities of Daily Living: Pain interferes with daily activities; affects ability to bend, sit, or stand easily. - Aberrant Drug Related Behaviors: None reported; use of marijuana edibles appropriately for pain management. PRIOR: Patient presents today via telehealth encounter to review recent spine and knee xrays. She continues to endorse axial low back pain with activities and at rest and bilateral knee pain with walking or climbing stairs. Patient also reports increased yellowing of her skin and eyes with persistent right upper quadrant pain. We received her recent liver US and old records from previous GI providers, which were reviewed and scanned into patient's chart. Patient reports she would like to transfer her GI care [place] [facility] and requests referral to our GI group. Denies any recent cough, cold, infection, fever or other significant changes in medical history since last office visit. Denies any changes to medications, medical history or recent hospitalizations. 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 Patient is followed by [facility] for liver cirrhosis due to GARCIA and chronic hepatitis C. She also reports history of following GI provider at [facility]. Reports chronic constipation, bloating, and right upper quadrant pains. Patient also has history of kidney stones with intermittent sharp pain in her left back and recurrent UTI. Back pain is axial, non-radiating but also increases with bending forward due to RUQ pain. Reports h/o back injections with partial pain relief. Denies previous spine surgery. Patient reports anxiety, depression and PTSD has been stable on current treatment and has regular follow up with Dr. Scott. She takes clonazepam 1 mg TID, clonidine, Aripiprazole, Lamotrigine, sertraline. No seizure activity in a long time, stable on. Patient is accompanied by her who is her primary general assignment reporter. Patient is disability due to PTSD, back pain, and liver cirrhosis. She lives with her and 2 children. Denies alcohol consumption or smoking. Reports use of marijuana edibles for pain. Oswestry Low Back Disability Score=32 (severe disability) Location: RUQ pain due to Hep C and GARCIA, chronic low back pain Duration: Chronic pain since 2013, worsening for past 2 years Characteristics of symptom or complaint: Throbbing, shooting, stabbing, sharp, crushing, aching, tiring, spreading Aggravating or associated factors: Movements, constant pains unrelated to PO intake or fasting Relieving factors: Marijuana edibles, dicyclomine, Naprosyn Treatment: [facility], h/o following GI provider at [facility] Medical History Chronic RUQ pain Kidney stones Generalized anxiety disorder AC on CPAP Constipation Hepatitis C Chronic back pain Bipolar disorder Bilateral knee pain Seizures HTN (hypertension) GERD (gastroesophageal reflux disease) PTSD (post-traumatic stress disorder) Liver cirrhosis secondary to GARCIA COPD (chronic obstructive pulmonary disease) Surgical History Hx of cholecystectomy H/O parathyroidectomy History of pancreatectomy S/P partial hysterectomy H/O hernia repair Hx of appendectomy Family History Sister Ovarian cancer Mother Skin cancer Social History Alcohol intake: never Patient Tobacco Use Status: Never used Tobacco Current occupational status: disabled Review of Systems Const All systems reviewed & are unremarkable except as noted in HPI and below Physical Exam Vital Signs: Last Vital Signs Pulse 75 02/07/25 09:39 BP 123/74 02/07/25 09:39 Pulse Ox 96 02/07/25 09:39 Oxygen Delivery Method Nasal Cannula 02/07/25 09:39 Oxygen Flow Rate 2 02/07/25 09:39 BMI result Body Mass Index 35.0 General: Appears afebrile. No acute distress. Alert and oriented. Mood and affect appropriate. Follows and participates in conversation appropriately. Respiratory effort is unlabored. No cough. O2 dependant. Able to transition from sit to stand unassisted. Ambulates with bilaterally normal heel strike and toe off. General: Yes no CVA tenderness Back/Spine/Pelvis Other: Lumbar extension and axial rotation reproduces mild to moderate pain. Painful facet loading bilaterally. No TTP in the projection of both SIJ post recent therapeutic injections. Back: no CVA tenderness Cervical Spine: loss of normal cervical lordosis, cervical muscular tenderness and No Cervical spine tenderness Thoracic/Lumbar Spine: thoracic and lumbar spine normal to inspection, No Thoracic/lumbar spine scar(s), Lasegue's sign negative, straight leg raise negative bilaterally, pain with thoraco-lumbar ROM, paraspinal muscle tenderness, thoraco-lumbar ROM limited, No thoracic spinal tenderness and lumbar spinal tenderness (L3-S1) Sacroiliac joints: bilaterally nontender Results Reviewed Results Reviewed: XR LUMBAR SPINE 06/14/24 CLINICAL INFORMATION: Dorsalgia, unspecified M54.9. COMPARISON: None available. TECHNIQUE: 7 views of the lumbar spine, inclusive of flexion and extension views, were obtained. FINDINGS: Levoscoliosis of the thoracolumbar spine. Surgical clips in the right upper quadrant. Diffuse demineralization. Degenerative changes in the bilateral sacroiliac joints. Facet arthritis in the lower lumbar spine. Multilevel lumbar spondylosis. Lyrmtoie-pm-mxewir loss of disc space height at L2-L3. Marked loss of disc space height at L3-L4. Moderate loss of disc space height at L4-L5. Moderate loss of disc space height at L5-S1. Alignment preserved on flexion and extension views. IMPRESSION: Multilevel degenerative disc disease most notable at L3-L4. MR abdomen wo/w con 10/28/24 IMPRESSION: 1. Hepatosplenomegaly. 2. Hepatic steatosis. 3. 9 mm probable hemangioma in the spleen. 4. Left renal scarring and cortical thinning. Assessment & Plan Assessment & Plan (1) Chronic back pain: Code(s): M54.9 - Dorsalgia, unspecified; G89.29 - Other chronic pain Category: Medical (2) Lumbosacral spondylosis: Code(s): M47.817 - Spondylosis without myelopathy or radiculopathy, lumbosacral region Category: Medical (3) Sacroiliac joint pain: Code(s): M53.3 - Sacrococcygeal disorders, not elsewhere classified Category: Medical Plan The plan includes monitoring the effectiveness of the sacroiliac joint injections, which have provided significant pain relief thus far. If the relief persists, the injections may be repeated in three months or later. For chronic abdominal pain, patient will continue follow up with her PCP and GI provider as she now reports umbilical hernia management. All questions and concerns have been answered and patient agreed with the treatment plan. Follow up as needed. Patient was informed and verbally consented to the use of an ambient scribe for clinic note documentation during this visit. Coding Level of Care Code Est Pt Level 3 (65917) Complex EM visit Add On G2211 Diagnoses Chronic back pain M54.9; G89.29 Lumbosacral spondylosis M47.817 Sacroiliac joint pain M53.3
[2025-02-07 09:39] VITALS: BP 123/74; PULSE 75; O2SAT 96; BMI 35.0
--- OUTSIDE RECORDS SUMMARY | 2025-02-07 10:11 | XMS_ITS | Clinical Summary ---
Author Organization [facility], Address [address] [place] [address] Phone Care Team Providers Care Metalizing Machine Operator Automatic Name Role Phone Katarina Nails Primary Care Provider [phone] Allergies Active Allergy Reactions Criticality Noted Date [...] DAILY DISSOLVE IN WATER BEFORE TAKING, [facility]/pharmacy #[id number] 01/24/2019 Active dicyclomine (BENTYL) 10 MG capsule Take 1 capsule by mouth 01/28/2022 Active Cholecalciferol (Vitamin D3) 1.25 MG (61933 UT) capsule Take by mouth 06/09/2018 Act [...] [facility], [address] [place] [address] Gonsalo Antony MD [address] [place] [address] Health Maintenance Due Date Last Done Comments Breast Cancer Screening 1960 Pneumococcal Vaccine: 50+ Ye ars (1 of 2 - PCV) 1981 Colorectal Cancer Screening: Annual FOBT 2011 Colorectal Cancer Screening: Colonoscopy 2011 Colorectal Cancer Screening: Sigmoidoscopy 2011 Hepatitis B Vaccine (1 of 3 - Risk 3-dose series) 2022 Influenza Vaccine (#1) 2025 4, 04/14/2022, 06/11/2021, Additional history exists Insurance [facility] Medicare Care Teams Metalizing Machine Operator Automatic Relationship Specialty Start Date End Date Katarina Nails FNP [address], [address] [place] [address] PCP - General 05/07/24
--- OUTSIDE RECORDS SUMMARY | 2025-02-07 10:12 | XMS_ITS ---
Author Name [facility] Organization Unknown History of Medication Use Medication Directions Dispensed Refills Start Date End Date [facility] Wegovy 0.25 mg/0.5 mL injection pen INJECT 0.25 MG BY SUBCUTANEOUS ROUTE ONCE WEEKLY ON THE SAME DAY OF EACH WEEK 12/13/2024 active lamoTRIgine (LaMICtal) 200 mg tablet Take 1 tablet (200 mg total) by mouth. at bedtime 12/02/2024 active albuterol 2.5 mg /3 mL (0.083 %) nebulizer solution INHALE 3 ML VIA NEBULIZER EVERY 6 HOURS NEEDED FOR WHEEZING 07/26/2024 active Linzess 145 mcg capsule 03/02/2023 active amLODIPine (NORVASC) 5 mg tablet Take 1 tablet (5 mg total) by mouth daily. 02/25/2023 active famotidine (PEPCID) 40 mg tablet 02/20/2023 active losartan (COZAAR) 100 mg tablet 01/09/2023 active albuterol HFA (PROAIR HFA ; PROVENTIL HFA ; VENTOLIN HFA) 90 mcg/actuation inhaler INHALE 2 INHALATIONS VIA SPACER FOUR TIMES DAILY NEEDED FOR WHEEZING OR SHORTNESS OF BREATH active ARIPiprazole (ABILIFY) 10 mg tablet Take 1 tablet (10 mg total) by mouth at bedtime. active atenoloL (TENORMIN) 50 mg tablet Take 1 tablet (50 mg total) by mouth daily. active clonazePAM (KlonoPIN) 1 mg tablet Take 1 tablet (1 mg total) by mouth 3 (three) times a day if needed. for anxiety Max Daily Amount: 3 mg active cloNIDine (CATAPRES) 0.1 mg tablet Take 1 tablet (0.1 mg total) by mouth 2 times daily. active lamoTRIgine (LaMICtal) 150 mg tablet Take 1 tablet (150 mg total) by mouth 1 (one) time each day in the morning. active mirtazapine (REMERON) 15 mg tablet Take 1 tablet (15 mg total) by mouth at bedtime. active sertraline (ZOLOFT) 100 mg tablet Take 2 tablets (200 mg total) by mouth 1 (one) time each day. As Directed active Trelegy Ellipta 200-62.5-25 mcg inhaler Inhale 1 puff (200 mcg total) by mouth 1 (one) time each day. active Encounters Encounter Type Encounter Reason Primary Diagnosis Location Date Ambulatory Follow-up Nonalcoholic steatohepatitis (GARCIA) [facility] 12/27/2024 Care Team Organization Name Specialty Phone Email Start Date End Da te [facility] Gabi Valadez Primary Care 01/2025 [facility] Gabi Valadez Primary Care 08/2024 [facility] 10/19/2023 [facility] 10/19/2023
--- OUTSIDE RECORDS SUMMARY | 2025-02-07 10:12 | XMS_ITS | Clinical Summary ---
Author Organization [employer] [facility] Address [address] [place] [phone] Phone Care Team Providers Care Metal Machine Setter Name Role Phone Vilma Newton MD Primary Care Provider Allergies Active Allergy Reactions [...] EDT) SODIUM 141 136 - 145 mmol/L [facility] POTASSIUM 3.9 3.4 - 5.1 mmol/L [facility] CHLORIDE 103 98 - 107 mmol/L [facility] CO2 24 22 - 31 mmol/L [facility] BUN 14 6 - 23 mg/dL [facility] CREATININE 0.89 0.50 - 1.20 mg/dL [facility] GLUCOSE 87 70 - 100 mg/dL [facility] CALCIUM 10.1 8.8 - 10.7 mg/dL [facility] EGFR 74 >59 mL/min/1.7 3m2 [facility] Comment:Estimated glomerular filtration rate calculated using the CKD-EPI refit equation. ANION GAP 14 7 - 17 mmol/L [facility] 03/17/2023 3:17 PM EDT 03/17/2023 3:36 PM EDT us Josiah Valente MD, MPH LAB BLOOD ORDERABLES Shira l Result [facility] [address] [place] [address] * ENDOSCOPY, COLON (10/26/2018 7:54 AM EDT) [...] ASSESSMENT -- BI-RADS 1 NEGATIVE us Mat Smliey MD IMG MG EXAMS Edited Res ult - Final from Last 3 Months or Most Recently Relevant to Health Maintenance Insurance MEDICARE PART A & B [employer] PPO MEDICARE PART A & B [employer] PPO Member Subscriber Plan / Payer (Ef fective 2002-Present) Name:Latricia Villagomez Relation to Subscriber:Spouse Name:LEONIDAS VILLAGOMEZ Date of :1964 (Home) Address[address] [facility] [place] [address] Payer ID:[id number] (NA) Type:PPO Address: [address] [place] [id number] [address] [facility] [place] [place] [address] [facility] [address] [facility] [place] [address] MEDICARE PART A & B [employer]IGNA PPO MEDICARE PART A & B [employer] PPO [address] [facility] [place] [address] MEDICARE PART A & B [facility] PPO [address] [facility] [place] [address] MEDICARE PART A & B [employer] PPO Member Subscriber Plan / Payer ( fective 2002-Present) Name:Latricia Villagomez Relation to Subscriber:Spouse Name:LEONIDAS VILLAGOMEZ Date of :1962 (Home) Address: [place] [address] Payer ID:[id number] (NAIC) Type:PPO Address: [address] [place] [id number] [place] [address] MEDICARE PART A & B [employer] PPO MEDICARE PART A & B [facility] PPO Care Teams Metal Machine Setter Relationship Specialty Start Date End Date Vilma Newton MD [address] [place] [address] PCP - General Internal Medicine 11/26/21 Additional Source Comments The information contained in this document represents components of the legal health record. It is not the complete legal health record.[facility]
--- OUTSIDE RECORDS SUMMARY | 2025-02-07 10:12 | XMS_ITS | Clinical Summary ---
Author Organization [facility] Address [address] [place] [address] Care Team Providers Care Hot Metal Crane Operator Name Role Phone Gabi Valadez MD Primary Care Provider [phone] Medications amLODIPine (NORVASC) 5 mg tablet Take [...] Encounters Date Type Department Care Team Description 01/18/2025 Telephone [facility] [address] [place] [phone] Wm Worthy, DO 12/31/2024 Telephone [facility] [address] [place] [phone] Wm Worthy, DO 12/27/2024 10:40 AM EDT Office Visit [facility] [address] [place] [phone] Wm Worthy, DO Liver cirrhosis secondary to GARCIA ([facility]/HCC V24, [facility]/HCC V28) (Primary Dx); AAT ([id number] n) deficiency (CMS/HCC V24, CMS/HCC V28); Low plasma alpha-1 antitrypsin (CMS/HCC V24, CMS/HCC V28); Metabolic syndrome; Cannabinoid hyperemesis syndrome; Generalized abdominal pain from Last 3 Months Surgical History Surgery Date Site/Laterality Comments HERNIA REPAIR PROCEDURE: HISTORICAL HERNIA REPAIR/ING; COMMENT: Right inguinal, [facility] , age 20 APPENDECTOMY PROCEDURE: HISTORICAL APPENDECTOMY HYSTERECTOMY PROCEDURE: HISTORICAL HYSTERECTOMY CHOLECYSTECTOMY -2008 PROCEDURE: [place] CHOLECYSTECTOMY Medical History Medical History Date Comments Depressive disorder, not els ewhere classified DX:Depressive disorder, not elsewhere classified Bipolar disorder (CMS/HCC V2 4, CMS/HCC V28) DX:Bipolar disorder (HCC); C OMMENT: Dxd 6 years ago.Hospitalized 2006 [...] cancer Mother (Age 65) alcoholism Paternal Grandfather [place] Paternal Grandmother Breast cancer Sister 1 Sister [...] 60-74 years 1-dose series) 2022 COVID-19 Vaccine (3 - season) 2024 10/18/2020, 09/26/2020 Depression Screening [...] Region Laterality Modality Body Ultrasound us Wm FLORESG US PROCEDURES Final Resu lt from Last 3 Months Insurance [facility]IC[facility] Care Teams Hot Metal Crane Operator Relationship Specialty Start Date End Date Gabi Valadez MD [address] [place], [place] [address] [address] PCP - General Internal Medicine 08/29/17
== END 2025-02-07 09:49 | disposition home or self-care (01) ==
LOC: HO.PMC 09:34
PROVIDERS: PCP Nurse Practitioner Family; Visit Provider Nurse Practitioner Family
DX: M54.9 Dorsalgia, unspecified (principal); G89.29 Other chronic pain; M47.817 Spondylosis without myelopathy or radiculopathy, lumbosacral region; M53.3 Sacrococcygeal disorders, not elsewhere classified
CPT/HCPCS: 99213

== ENCOUNTER 2025-03-20 10:34 | Outpatient (AMB) | payer OTHER, MEDICARE, SELFPAY ==
--- NOTE | 2025-03-20 10:34 | A.OFFVIS_ITS ---
Intake Visit Reasons: 3 month f/u -r/s Intake Note: Latricia presents as a 3 month follow up. CC: States that other than having a fever and being under the weather today she has not been having any GI concerns. 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 [place] [facility] [place] [facility]. Pt accompanied by son and . Main CC is episodic severe abd pain for which she has already had extensive w/up done based on records reviewed from these three providers. Referral reason is fatty liver and ? cirrhosis. Most of the visit was spent disspelling concerns for chronic hepatitis-C, cirrhosis, in need for EGD Q 6 monthly. Reviewed with the patient and her family, that so far, no evidence of chronic hepatitis-C. Her hep C antibodies negative, this typically remains positive even if hep C is treated. In addition, despite a previous report of F4 Elastography 2021 from [facility] shows liver stiffness 12.8 kilopascal-that is suggestive of compensated chronic liver disease but need further test for confirmation. The cut off is greater than 13 for severe liver fibrosis/liver cirrhosis. She does have pos HB core Ab in one of the many testing she has had done. To note- pt also follows with pulm for COPD per her report. Advised to review A1AT deficiency results with the litharge supervisor Dr Rosales as well. Pt follows with pain management for non-luminal intermittent episodic abd pain. Last colo 2020 - good prep. No polyps (Dr Priest) random colo bx negative. 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 This type of mutation typically leads to lung disease such as emphysema but may also be responsible for liver disease. The nearest liver specialist for alpha 1 antitrypsin deficiency (A1AD) is Dr Rodriguez who you were previously established with. We would also recommend seeing a lung doctor (litharge supervisor) for evaluation. Please let me know if you'd like me to refer you within [facility] or you can also request a referral from your PCP. Thank you Dr Reed 03/20/25: Here for a video visit. Currently follows with Dr Wm Worthy at [facility] for A1AT. Reports was advised for further testing but pt did not have the instructions available, no records received from his office either. Otherwise, has URI sx at present, cough, runny nose and fevers. Daughter also brings up eating habits. Pt frequently binges on a whole pint of ice cream, cereal etc. 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 COPD (chronic obstructive pulmonary disease) Surgical History Hx of cholecystectomy H/O parathyroidectomy History of pancreatectomy S/P partial hysterectomy H/O hernia repair Hx of appendectomy Family History Sister Ovarian cancer Mother Skin cancer Social History Alcohol intake: never Patient Tobacco Use Status: Never used Tobacco Current occupational status: disabled Review of Systems Const All systems reviewed & are unremarkable except as noted in HPI and below Physical Exam Exam Exam: Video visit: No acute distress No icterus noted No facial asymmetry Speaking in full sentences Telehealth Telehealth Telehealth Platform: [facility] Location of provider rendering services: practice address Location of patient: address on file Patient Identification confirmed using: Name, : Yes Telehealth method: video Patient verbally consented to treatment: Yes Patient verbally consented to billing insurance company: Yes Patient informed of any privacy concerns related to visit: Yes Minutes spent on Phone/Video with Pt.: 16 Assessment & Plan Assessment & Plan (1) Chronic liver disease: Code(s): K76.9 - Liver disease, unspecified Category: Medical (2) Igloz-9-kafcnwhknzj deficiency: Code(s): E88.01 - Prggx-5-nflihrshmif deficiency Category: Medical (3) Hyperlipidemia: Code(s): E78.5 - Hyperlipidemia, unspecified Category: Medical (4) Elevated alkaline phosphatase level: Code(s): R74.8 - Abnormal levels of other serum enzymes Category: Medical (5) Obesity: Code(s): E66.9 - Obesity, unspecified Category: Medical (6) Colon cancer screening: Code(s): Z12.11 - Encounter for screening for malignant neoplasm of colon Category: Medical Plan 1. Chronic liver disease 2. A1AT def 3. MAFLD As above, extensively reviewed with the patient and her family, that likely has advanced fibrosis from [facility]FLD[facility] and possibly some component of SZ phenotype A1AT def. Plan: - No evidence of overt cirrhosis at this time - Will favor q6m US Abd for HCC screening with advanced fibrosis in this [facility] pt. Next US due 04/[address] Worthy office. - Pt also advised to sign release of records at Dr Worthy's office - Start lipitor 20 for HLD - Recheck labs 3 months 2. Colorectal cancer screening Last colonoscopy 2020. Patient and family made aware, that will not be due for another colonoscopy till 2030. Follow up 3 months Orders: Orders Lipid Panel 3 Months K76.9 - Liver disease, unspecified Hemoglobin A1c 3 Months K76.9 - Liver disease, unspecified Liver Panel 3 Months K76.9 - Liver disease, unspecified Medications: New atorvastatin (Lipitor) 20 mg PO BEDTIME 90 tabs 0RF Coding Level of Care Code Tele Est Pt Level 5 (49170) Complex EM visit Add On G2211 Diagnoses Chronic liver disease K76.9 Pbsxu-0-uimdvfmhjpw deficiency E88.01 Hyperlipidemia E78.5 Elevated alkaline phosphatase level R74.8 Obesity E66.9 Colon cancer screening Z12.11
--- OUTSIDE RECORDS SUMMARY | 2025-03-20 13:10 | XMS_ITS | Encounter Summary ---
Author Organization [employer] [facility] Address [address] [place] [address] Phone Care Team Providers Care Top Flavor Attendant Name Role Phone Unknown, Unknown Primary Care Provider Vilma Bee MD Primary Care Provider [phone] Encounter Details Date Type Department Care Team (Late st Contact Info) Description 10/18/2018 Ancillary Orders [facility] [address] [place] [address] Rosetta Smiley MD [address] [place] [address] [address] [place] [address] [email or web address] Screening breast examination Social History Tobacco Use Types Packs/Day Years Used Date Smoking Tobacco: Never Smokeless Tobacco: Never Comments Unknown Sex and Gender Information Value Date Recorded Sex Assigned at Not on file Legal Sex Female 11:10 AM EDT Gender Identity Not on file Sexual Orientation Not on file documented as of this encounter Plan of Treatment Not on file documented as of this encounter Visit Diagnoses Diagnosis Screening breast examination Other screening breast examination documented in this encounter Care Teams Top Flavor Attendant Relationship Specialty Start Date End Date Unknown, Unknown, MD PCP - General 09/25/18 10/22/18 Vilma Newton MD [address] [place] [address] PCP - General Internal Medicine 11/26/21 documented as of this encounter Additional Source Comments The information contained in this document represents components of the legal health record. It is not the complete legal health record.[facility]
--- OUTSIDE RECORDS SUMMARY | 2025-03-20 13:10 | XMS_ITS | Encounter Summary ---
Author Organization [facility], Address [address] [place] [address] Phone Care Team Providers Care Manager Of Operations Name Role Phone Katarina Nails YESSI Primary Care Provider [phone] Encounter Details Date Type Department Care Team (Late st Contact Info) Description 03/30/2022 Documentation Only [facility], [address] [place] [phone] Rubens Palafox PA [address] [place] [address] Social History Tobacco Use Types Packs/Day Years [...] Care Team (Late st Contact Info) Description 03/27/2025 4:10 PM EDT Office Visit [facility], [address] [place] [address] Gonsalo Antony MD [address] [place] [address] documented as of this encounter Visit Diagnoses Not on filedocumented in this encounter Care Teams Manager Of Operations Relationship Specialty Start Date End Date Katarina Nails FNP [address] [facility] [address] [place] [address] PCP - General 05/07/24 documented as of this encounter
--- OUTSIDE RECORDS SUMMARY | 2025-03-20 13:10 | XMS_ITS | Encounter Summary ---
Author Organization [employer] [facility] Address [address] [place] [address] Phone Care Team Providers Care Bank Vault Clerk Name Role Phone Vilma Newton MD Primary Care Provider [phone] Encounter Details Date Type Department Care Team (Late st Contact Info) Description 11/05/[address] [facility] [address] [facility] [place] [address] Vilma Newton MD [address] [place] [address] Social History Tobacco Use Types Packs/Day Years Used Date Smoking Tobacco: Never Smokeless Tobacco: Never Alcohol Use Standard Drinks/Week Comments Never 0 (1 standard drink = 0.6 oz pur e alcohol) Education Answer Date Recorded Are you interested in more education? Not on rosalia e 10/22/2022 Are you concerned about learning? Not on file 10/22/2022 No 10/22/2022 No 10/22/2022 Comments No Sex and Gender Information Value Date Recorded Sex Assigned at Not on file Legal Sex Female 11:10 AM EDT Gender Identity Not on file Sexual Orientation Not on file documented as of this encounter Plan of Treatment Not on file documented as of this encounter Visit Diagnoses Not on filedocumented in this encounter Care Teams Bank Vault Clerk Relationship Specialty Start Date End Date Vilma Newton MD [address] [place] [address] PCP - General Internal Medicine 11/26/21 documented as of this encounter Additional Source Comments The information contained in this document represents components of the legal health record. It is not the complete legal health record.[facility]
--- OUTSIDE RECORDS SUMMARY | 2025-03-20 13:10 | XMS_ITS | Encounter Summary ---
Author Organization [facility] Address [address] [place] [address] Phone Care Team Providers Care Proposal Manager Name Role Phone Vilma Newton MD Primary Care Provider [phone] Encounter Details Date Type Department Care Team (Late st Contact Info) Description 11/26/2018 Procedure Pass [facility] Endoscopy Department [address] [place] [address] Social History Tobacco Use Types Packs/Day Years Used Date Smoking Tobacco: Never Smokeless Tobacco: Never Alcohol Use Standard Drinks/Week Comments Never 0 (1 standard drink = 0.6 oz pur e alcohol) Comments No Sex and Gender Information Value Date Recorded Sex Assigned at Not on file Legal Sex Female 11:10 AM EDT Gender Identity Not on file Sexual Orientation Not on file documented as of this encounter Plan of Treatment Not on file documented as of this encounter Visit Diagnoses Not on filedocumented in this encounter Care Teams Proposal Manager Relationship Specialty Start Date End Date Vilma Newton MD [address] [place] [address] PCP - General Internal Medicine 11/26/21 documented as of this encounter Additional Source Comments The information contained in this document represents components of the legal health record. It is not the complete legal health record.[facility]
--- OUTSIDE RECORDS SUMMARY | 2025-03-20 13:10 | XMS_ITS | Encounter Summary ---
Author Organization [facility] Address [address] [place] [address] Phone Care Team Providers Care Forging Dies Final Finisher Name Role Phone Katarina Nails YESSI Primary Care Provider [phone] Encounter Details Date Type Department Care Team (Late st Contact Info) Description 02/29/2024 Documentation Only [facility] [address] [place] [address] Gilma Jones [address] [place] [address] Social History Tobacco Use Types Packs/Day [...] [facility] [address] [place] [phone] Gonsalo Antony MD [address] [place] [phone] documented as of this encounter Visit Diagnoses Not on filedocumented in this encounter Care Teams Forging Dies Final Finisher Relationship Specialty Start Date End Date Katarina Nails FNP [address], [address] [place] [address] PCP - General 05/07/24 documented as of this encounter
--- OUTSIDE RECORDS SUMMARY | 2025-03-20 13:10 | XMS_ITS | Clinical Summary ---
Author Organization [facility] Address [address] [facility] [address] [place] [address] Phone Care Team Providers Care Clinical Cytopathologist Name Role Phone Vilma Newton MD Primary Care Provider [phone] Allergies Active Allergy Reactions Criticality Noted Date [...] 10/18/2020 10/18/2018, 09/26, 05/28/2015, Additional history exists CREATININE LEVEL 03/17/2024 03/17/2023 POTASSIUM LEVEL 03/17/2024 03/17/2023 INFLUENZA VACCINE (#1) 2025 , 06/11/2021, 04/10/2020, Additional history exists COVID-19 VACCINE (3 - 2024- season) 2025 10/18/2020, 09/26/2020 SCREENING FOR DIABETES 03/17/2026 03/17/2023, 2022 Adult [...] EDT) SODIUM 141 136 - 145 mmol/L [facility] POTASSIUM 3.9 3.4 - 5.1 mmol/L [facility] CHLORIDE 103 98 - 107 mmol/L [facility] CO2 24 22 - 31 mmol/L [facility] BUN 14 6 - 23 mg/dL [facility] CREATININE 0.89 0.50 - 1.20 mg/dL [facility] GLUCOSE 87 70 - 100 mg/dL [facility] CALCIUM 10.1 8.8 - 10.7 mg/dL [facility] EGFR 74 >59 mL/min/1.7 3m2 [facility] Comment:Estimated glomerular filtration rate calculated using the CKD-EPI refit equation. ANION GAP 14 7 - 17 mmol/L [facility] 03/17/2023 3:17 PM EDT 03/17/2023 3:36 PM EDT us Josiah Valente MD, MPH LAB BLOOD ORDERABLES Shira whittaker Result [facility] [address] [place] [address] * ENDOSCOPY, COLON (10/26/2018 7:54 AM EDT) [...] RN Referring MD: MAT SMILEY M.D. (Referring MD), SCOTTY SINGH MD (Referring MD) Medicines: Fentanyl [...] study. OVERALL ASSESSMENT -- BI-RADS 1 NEGATIVE Mat Smiley MD IMG MG EXAMS Edited Res ult - Final from Last 3 Months or Most Recently Relevant to Health Maintenance Insurance MEDICARE PART A & B [facility] PPO MEDICARE PART A & B [employer] PPO Member Subscriber Plan / Payer ( fective 2002-Present) Name:Latricia Villagomez Relation to Subscriber:Spouse Name:VILLAGOMEZLEONIDAS VALENTE Date of :1964 (Home) Address: [address] [place] [address] Payer ID:[id number] (NAIC) Type:PPO Address: [address] [place] [id number] MEDICARE PART A & B [employer] PPO MEDICARE PART A & B [employer] PPO MEDICARE PART A & B [employer] PPO MEDICARE PART A & B [facility] PPO [address] [place] [id number] MEDICARE PART A & B [employer] PPO [address] [place] [address] MEDICARE PART A & B [employer] PPO MEDICARE PART A & B [facility] PPO Care Teams Clinical Cytopathologist Relationship Specialty Start Date End Date Vilma Newton MD [address] [place] [address] PCP - General Internal Medicine 11/26/21 Additional Source Comments The information contained in this document represents components of the legal health record. It is not the complete legal health record.[facility]
--- OUTSIDE RECORDS SUMMARY | 2025-03-20 13:10 | XMS_ITS | Encounter Summary ---
Author Organization [facility] Address [address] [place] [address] Phone Care Team Providers Care Belt Splicer Name Role Phone Katarina Nails YESSI Primary Care Provider [phone] Encounter Details Date Type Department Care Team (Late st Contact Info) Description 03/03/2022 Documentation Only [facility] [address] [place] [phone] Rubens Palafox PA [address] [place] [address] [place] [phone] Social History Tobacco Use Types Packs/Day Years [...] [facility] [address] [place] [phone] Gonsalo Antony MD [address] [place] [phone] documented as of this encounter Visit Diagnoses Not on filedocumented in this encounter Care Teams Belt Splicer Relationship Specialty Start Date End Date Katarina Nails FNP [address], [address] [place] [address] PCP - General 05/07/24 documented as of this encounter
--- OUTSIDE RECORDS SUMMARY | 2025-03-20 13:10 | XMS_ITS | Encounter Summary ---
Author Organization [facility] Address [address] [place] [address] Phone Care Team Providers Care Patient Support Representative Name Role Phone Katarina Nails YESSI Primary Care Provider [phone] Reason for Visit * Reason Comments Med Change Request Encounter Details Date Type Department Care Team (Late st Contact Info) Description 06/08/2023 Refill [facility] [address] [place] [phone] Rubens Palafox PA [address] [address] [place] [phone] Social History Tobacco Use Types Packs/Day Years [...] Visit [facility] [address] [phone] Gonsalo Antony MD [address] [place] [address] documented as of this encounter Visit Diagnoses Not on filedocumented in this encounter Care Teams Patient Support Representative Relationship Specialty Start Date End Date Katarina Nails FNP [address], [facility] [address] [place] [address] PCP - General 05/07/24 documented as of this encounter
--- OUTSIDE RECORDS SUMMARY | 2025-03-20 13:10 | XMS_ITS | Encounter Summary ---
Author Organization [facility] Address [address] [place] [address] Phone Care Team Providers Care Stove Mounter Name Role Phone Vilma Newton MD Primary Care Provider [phone] Encounter Details Date Type Department Care Team (Late st Contact Info) Description 11/25/2022 Telephone [facility] [address] [facility] [place] [address] [email or web address] Social History Tobacco Use Types Packs/Day Years [...] on filedocumented in this encounter Care Teams Stove Mounter Relationship Specialty Start Date End Date Vilma Newton MD [address] [place] [address] PCP - General Internal Medicine 11/26/21 documented as of this encounter Additional Source Comments The information contained in this document represents components of the legal health record. It is not the complete legal health record.[facility]
--- OUTSIDE RECORDS SUMMARY | 2025-03-20 13:10 | XMS_ITS | Clinical Summary ---
Author Organization [facility], Address [address] [place] [address] Phone Care Team Providers Care Document Coordinator Name Role Phone Katarina Nails Primary Care Provider [phone] Allergies Active Allergy Reactions Criticality Noted Date [...] MOUTH DAILY DISSOLVE IN WATER BEFORE TAKING, [facility]/pharmacy #[id number] 01/24/2019 Active dicyclomine (BENTYL) 10 MG capsule Take 1 capsule by mouth 01/28/2022 Active Cholecalciferol (Vitamin D3) 1.25 MG (70842 UT) capsule Take by mouth 06/09/2018 Act [...] Visit [facility], [address] [place] [address] Gonsalo Antony MD [address] [place] [address] Health Maintenance Due Date Last Done Comments Breast Cancer Screening 1962 Pneumococcal Vaccine: 50+ Ye ars (1 of 2 - PCV) 1981 Colorectal Cancer Screening: Annual FOBT 2011 Colorectal Cancer Screening: Colonoscopy 2011 Colorectal Cancer Screening: Sigmoidoscopy 2011 Hepatitis B Vaccine (1 of 3 - Risk 3-dose series) 2022 Influenza Vaccine (#1) 2025 4, 04/14/2022, 06/11/2021, Additional history exists Insurance [facility] Medicare Care Teams Document Coordinator Relationship Specialty Start Date End Date Katarina Nails FNP [address], [address] [place] [address] PCP - General 05/07/24
--- OUTSIDE RECORDS SUMMARY | 2025-03-20 13:10 | XMS_ITS | Encounter Summary ---
Author Organization [facility] Address [address] [place] [address] Phone Care Team Providers Care Grape Pruner Name Role Phone Vilma Newton MD Primary Care Provider [phone] Encounter Details Date Type Department Care Team (Late st Contact Info) Description 10/26/2018 Procedure Pass [facility] [address] [place] [address] Social History Tobacco Use Types Packs/Day Years [...] on filedocumented in this encounter Care Teams Grape Pruner Relationship Specialty Start Date End Date Vilma Newton MD [address] [place] [address] PCP - General Internal Medicine 11/26/21 documented as of this encounter Additional Source Comments The information contained in this document represents components of the legal health record. It is not the complete legal health record.[facility]
--- OUTSIDE RECORDS SUMMARY | 2025-03-20 13:11 | XMS_ITS | Encounter Summary ---
Author Organization [facility] Address [address] [place] [phone] Phone Care Team Providers Care Sap Bpc Developer Name Role Phone Vilma Newton MD Primary Care Provider [phone] Encounter Details Date Type Department Care Team (Late st Contact Info) Description 10/24/2018 Procedure Pass [facility] [address] [place] [address] Social History Tobacco Use Types Packs/Day Years [...] on file documented as of this encounter Functional Status documented as of this encounter Plan of Treatment Not on file documented as of this encounter Visit Diagnoses Not on filedocumented in this encounter Care Teams Sap Bpc Developer Relationship Specialty Start Date End Date Vilma Newton MD [address] [place] [address] PCP - General Internal Medicine 11/26/21 documented as of this encounter Additional Source Comments The information contained in this document represents components of the legal health record. It is not the complete legal health record.[facility]
--- OUTSIDE RECORDS SUMMARY | 2025-03-20 13:11 | XMS_ITS | Encounter Summary ---
Author Organization [facility] Address [address] [place] [address] Phone Care Team Providers Care Floor Steward/Stewardess Name Role Phone Unknown, Unknown Primary Care Provider Vilma Bee MD Primary Care Provider [phone] Encounter Details Date Type Department Care Team (Late st Contact Info) Description 10/20/2018 Procedure Pass [facility] Endoscopy Department [address] [place] [address] Social History Tobacco Use Types Packs/Day Years [...] on filedocumented in this encounter Care Teams Floor Steward/Stewardess Relationship Specialty Start Date End Date Unknown, Unknown, PCP - General 09/25/18 10/22/18 Vilma Newton MD [address] [place] [address] PCP - General Internal Medicine 11/26/21 documented as of this encounter Additional Source Comments The information contained in this document represents components of the legal health record. It is not the complete legal health record.[facility]
--- OUTSIDE RECORDS SUMMARY | 2025-03-20 13:11 | XMS_ITS | Encounter Summary ---
Author Organization [facility] Address [address] [facility] [address] [place] [address] Phone Care Team Providers Care Interactive Developer Name Role Phone Vilma Newton MD Primary Care Provider [phone] Encounter Details Date Type Department Care Team (Late st Contact Info) Description 10/23/2018 Ancillary Orders [facility] [address] [place] [id number] Rosetta Smiley MD [address] [place] [address] Social History Tobacco Use Types Packs/Day Years [...] on file documented as of this encounter Results * Mammogram Outside (No Interpretation) (10/15/2017 12:00 AM EDT) [facility] - 10/23/2018 10:29 AM EDT This study is for PACS storage only and not for interpretation. us Rosetta Smiley MD IMG OUTSIDE IMAGING W/OUT INTERPRETATION Final Result [email or web address] * Mammogram Outside (No Interpretation) (05/28/2015 12:00 AM EST) Narrative [facility] - 10/23/2018 10:30 AM EDT This study is for PACS storage only and not for interpretation. Rosetta Smiley MD IMG OUTSIDE IMAGING W/OUT INTERPRETATION Final Result Performing Organization Address [facility] de Phone Number [email or web address] * Mammogram Outside (No Interpretation) (10/11/2007 12:00 AM EDT) Narrative [facility] - 10/23/2018 10:31 AM EDT This study is for PACS storage only and not for interpretation. us Rosetta Smiley MD IMG OUTSIDE IMAGING W/OUT INTERPRETATION Final Result Performing Organization Address [facility] de Phone Number [facility] documented in this encounter Visit Diagnoses Not on filedocumented in this encounter Care Teams Interactive Developer Relationship Specialty Start Date End Date Vilma Newton MD [address] [place] [address] PCP - General Internal Medicine 11/26/21 documented as of this encounter Additional Source Comments The information contained in this document represents components of the legal health record. It is not the complete legal health record.[facility]
--- OUTSIDE RECORDS SUMMARY | 2025-03-20 13:11 | XMS_ITS | Encounter Summary ---
Author Organization [facility] Address [address] [place] [address] Phone Care Team Providers Care Flare Man Name Role Phone Katarina Nails YESSI Primary Care Provider [phone] Encounter Details Date Type Department Care Team (Late st Contact Info) Description 06/07/2023 Documentation Only [facility] [address] [place] [phone] Rubens Palafox PA [address] [place] [address] [place] [id number] Social History Tobacco Use Types Packs/Day Years [...] Visit [facility] [address] [place] [phone] Gonsalo Antony MD [address] [place] [phone] documented as of this encounter Visit Diagnoses Not on filedocumented in this encounter Care Teams Flare Man Relationship Specialty Start Date End Date Katarina Nails FNP [address], [address] [place] [address] PCP - General 05/07/24 documented as of this encounter
== END 2025-03-20 17:08 | disposition home or self-care (01) ==
LOC: HO.HGI 10:34
PROVIDERS: PCP Nurse Practitioner Family; Visit Provider Internal Medicine
DX: E88.01 Alpha-1-antitrypsin deficiency (principal); K76.9 Liver disease, unspecified; E78.5 Hyperlipidemia, unspecified; R74.8 Abnormal levels of other serum enzymes; E66.9 Obesity, unspecified
CPT/HCPCS: 99214